=== PATIENT | male | born 1950 | race Caucasian/White ===

== ENCOUNTER 2022-04-20 15:15 | Outpatient (RCR) | payer MEDICARE, BC, SELFPAY | END 2022-04-20 16:39 | disposition home or self-care (01) | PROVIDERS: PCP Family Medicine; Visit Provider Family Medicine | DX: R26.9 Unspecified abnormalities of gait and mobility (principal); Z51.89 Encounter for other specified aftercare | CPT/HCPCS: 97110; 97112; 97530; 97535 ==

== ENCOUNTER 2023-03-25 11:25 | Emergency (ER) | payer MEDICARE, BC, SELFPAY ==
[2023-03-25 11:39] VITALS: BP 142/74; PULSE 76; RESP 20; TEMP 36.3; O2SAT 98
--- NOTE | 2023-03-25 11:58 | ED.EPISTAXIS ---
History of Present Illness General Time Seen by Provider: 11:58 Date Seen: 03/25/23 Chief Complaint: Epistaxis/Nosebleed Stated Complaint: nose bleed Time Seen by Provider: 03/25/23 11:58 Source: patient, family and RN notes reviewed Mode of arrival: ambulatory Limitations: no limitations History of Present Illness HPI Narrative: Jesus is a very pleasant 73-year-old male accompanied by his latrice here with uncontrolled epistasis. It is coming he thinks from his left side but has been bleeding from the right at times as well. It is been bleeding since 10:00 a.m. this morning, he has not gotten it is to stop. He is on Eliquis, was started recently for a clot found in his heart. He is currently wearing a monitor to see if he has recurrent arrhythmia. 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 He has been off anticoagulation for about 2 years prior to this point. He is scheduled to have a repeat echo I believe they said tomorrow. No trauma. No fever. Location: Yes left naris Related Data Previous Rx's Medication Instructions Recorded cephalexin 500 mg tablet 500 mg PO BID #10 tabs 03/25/23 Allergies Allergy/AdvReac Type Severity Reaction Status Date / Time No Known Drug Allergies Allergy Verified 03/25/23 11:45 Review of Systems Narrative: As per HPI. Exam Const: Vital Signs, click to edit/add: Vital Signs - 24 hr 03/25/23 11:39 Temperature 97.4 F L Pulse Rate [Right Pulse Oximeter] 76 Respiratory Rate 20 Blood Pressure [Ri ght Upper Arm] 142/74 H Pulse Oximetry 98 Oxygen Delivery Me thod Room Air Patient has the nasal clip on. Has dried blood around both nares and around his mouth. When I removed the clip, has active bleeding. Cannot see a source. Otherwise face is atraumatic, sclera clear, conjugate gaze. Able to speak in complete sentences. Neck without any cervical adenopathy or masses. Documenting provider has reviewed patient's vital signs: yes Course Reevaluation(s) Time of Reevaluation #1: 12:06 Reevaluation #1: Oxymetazoline own cotton ball placed in left nares were it seems to be bleeding from, does seem to get some retrograde symptoms over to the right, did spray some oxymetazoline spray before placing the cotton ball. Will let this rest with the nasal clip on to see if we can achieve some initial hemostasis that I might be able to see where he is bleeding from. When the clamp was taken off, started just having profuse bleeding from the left nares. Time of Reevaluation #2: 12:43 Reevaluation #2: Just completed placing packing his nose. Used a 5.5 cm rapid rhino, insufflated with 2 mL of air and patient seems to have hemostasis at this point. Once I removed the cotton ball with the oxymetazoline, a clot followed and had active bleeding, could not see any source of bleeding as he just had profuse bleeding. Tried to use the large Rapid rhino but could not advance it. Was successful in getting the 5.5 cm rapid rhino in. We will observe, await his labs. May need to insufflate more air into this but at this time it seems that we have hemostasis. Time of Reevaluation #3: 13:09 Reevaluation #3: Patient has not had any further bleeding. Reviewed labs are stable without concerns. Consultations Consultation #1: Did speak with Dr. Martino briefly, he wants him to be seen Sunday in [place], can be added on to his schedule. Time: 13:15 Vital Signs Vital signs: Initial Vital Signs Temperature 97.4 F L 03/25/23 11:39 Temperature Source Temporal Artery Scan 03/25/23 11:39 Pulse Rate 76 03/25/23 11:39 Respiratory Rate 20 03/25/23 11:39 Blood Pressure 142/74 H 03/25/23 11:39 Blood Pressure Mean 96 03/25/23 11:39 Blood Pressure Position Sitting 03/25/23 11:39 Pulse Oximetry 98 03/25/23 11:39 Oxygen Delivery Method Room Air 03/25/23 11:39 Vital Signs Temperature 97.4 F L 03/25/23 11:39 Pulse Rate 76 03/25/23 11:39 Respiratory Rate 20 03/25/23 11:39 Blood Pressure 142/74 H 03/25/23 11:39 Pulse Oximetry 98 03/25/23 11:39 Oxygen Delivery Method Room Air 03/25/23 11:39 Temperature 97.4 F L 03/25/23 11:39 Pulse Rate 76 03/25/23 11:39 Respiratory Rate 20 03/25/23 11:39 Blood Pressure 142/74 H 03/25/23 11:39 Pulse Oximetry 98 03/25/23 11:39 Oxygen Delivery Method Room Air 03/25/23 11:39 MDM - Epistaxis Lab Data Attestation: I reviewed the patient's lab results. Labs: Lab Results 03/25/23 Range/Units 12:18 WBC 4.47 L (4.50-11.00) K/uL RBC 4.68 (4.30-5.90) m/uL Hgb 14.5 (13.5-17.5) gm/dL Hct 42.7 (37.0-53.0) % MCV 91 (80-100) fL MCH 31 (26-34) pg MCHC 34 (32-36) gm/dL RDW Coeff of Leonie 13.0 (11.5-15.5) % Plt Count 159 (140-440) K/uL Neut % (Auto) 58.4 (42.0-72.0) % Lymph % (Auto) 19.5 L (20-44) % [place] % (Auto) 8.9 (0.0-11.0) % Eos % (Auto) 11.9 H (0.0-7.0) % Baso % (Auto) 1.1 (0.0-3.0) % Neut # (Auto) 2.60 (1.7-7.0) K/uL Lymph # (Auto) 0.90 (0.90-2.90) K/uL [place] # (Auto) 0.40 (0.00-0.90) K/UL Eos # (Auto) 0.50 (0.00-0.50) K/uL Baso # (Auto) 0.00 (0.00-0.30) K/uL Abs Immat Gran (auto) 0.00 (0.00-0.30) K/uL Imm/Tot Granulo (auto) 0.2 % Sodium 142 (135-149) mmol/L Potassium 4.7 (3.6-5.1) mmol/L Chloride 105 (96-114) mmol/L Carbon Dioxide 31 (20-32) mmol/L Anion Gap 6 L (7-15) mEq/L BUN 14 (7-30) mg/dL Creatinine 0.9 (0.5-1.5) mg/dL Estimated GFR 91 ml/min Glucose 87 (60-115) mg/dL Calcium 9.5 (8.4-10.6) mg/dL Critical Care Time Critical Care Time Critical Care Time: No Discharge Plan Discharge Clinical Impression: Epistaxis Patient Disposition: Home, Self-Care Condition: Stable Instructions: Nosebleed (ED) Additional Instructions: Need to leave packing in place. If for any reason he does start bleeding again, there are 2 mL of air in the existing packing, an additional total of 3 mL can be added incrementally. Would recommend adding 1 mL every 10-15 minutes for a total volume of 3 mL. If he continues to bleed after the additional 3 mL has been added, does need to be re-evaluated. Will be on antibiotics, take as directed while the packing is in place. You will need to follow up with ENT, call [facility] where they do his scheduling, to get scheduled to be added on to his schedule Sunday morning here in [place] (tell the schedulers that I spoke with him personally on Sunday). No strenuous activity, do not try to blow nose. Activity Level: No strenuous activity Prescriptions: New cephalexin 500 mg tablet 500 mg PO BID Qty: 10 0RF Follow Up/Referrals: Saúl Robison MD [Primary Care Provider] - Stand Alone Forms: [facility] Info Instructions
[2023-03-25 12:28] LABS: Basophils Percent Auto 1.1 % (0.0-3.0); Eosinophils Percent Auto 11.9 % (0.0-7.0); Hematocrit 42.7 % (37.0-53.0); Hemoglobin* 14.5 gm/dL (13.5-17.5); Immature Granulocytes Pct Auto 0.2 %; Lymphocytes Percent Auto 19.5 % (20-44); Mean Corpuscular HGB Conc 34 gm/dL (32-36); Mean Corpuscular Hemoglobin 31 pg (26-34); Mean Corpuscular Volume 91 fL (80-100); Monocytes Percent Auto 8.9 % (0.0-11.0); Neutrophils Percent Auto 58.4 % (42.0-72.0); Platelet Count* 159 K/uL (140-440); Red Blood Count 4.68 m/uL (4.30-5.90); White Blood Count* 4.47 K/uL (4.50-11.00)
[2023-03-25 12:44] LABS: Slide Review Reflex No
[2023-03-25 12:46] LABS: Chloride* 105 mmol/L (96-114); Sodium* 142 mmol/L (135-149)
[2023-03-25 12:47] LABS: Potassium* 4.7 mmol/L (3.6-5.1)
[2023-03-25 12:49] LABS: Anion Gap 6 mEq/L (7-15); Carbon Dioxide* 31 mmol/L (20-32); Creatinine* 0.9 mg/dL (0.5-1.5); Estimated Glomerular Filt Rate 91 ml/min
[2023-03-25 12:50] LABS: Blood Urea Nitrogen* 14 mg/dL (7-30); Calcium* 9.5 mg/dL (8.4-10.6); Glucose* 87 mg/dL (60-115)
== END 2023-03-25 13:23 | disposition home or self-care (01) ==
PROVIDERS: Emergency Provider Family Medicine; PCP Family Medicine
DX: R04.0 Epistaxis (principal)
CPT/HCPCS: 30901; 36415; 80048; 85025; 99283

== ENCOUNTER 2023-06-13 09:14 | Outpatient (CLI) | payer MEDICARE, BC, SELFPAY | END 2023-06-13 09:15 | disposition home or self-care (01) | LOC: AMB 06-18 07:30 | PROVIDERS: PCP Family Medicine; Visit Provider Family Medicine | DX: S79.912A Unspecified injury of left hip, initial encounter (principal); W18.30XA Fall on same level, unspecified, initial encounter; Y92.000 Kitchen of unspecified non-institutional (private) residence as the place of occurrence of the external cause | CPT/HCPCS: A0425; A0427 ==

== ENCOUNTER 2023-06-13 09:50 | Inpatient (IN) | payer MEDICARE, BC, SELFPAY ==
[2023-06-13] VITALS (12 sets, daily range): BP systolic 114–155; BP diastolic 66–79; PULSE 80–85; RESP 16–18; TEMP 36.2–36.9; O2SAT 93–100; BMI 20.7; BMI 23.9
--- NOTE | 2023-06-13 | CRLHL7_ITS ---
For Patients: As a result of the Century Cures Act, medical imaging exams and procedure reports are released immediately into your electronic medical record. You may view this report before your referring provider. If you have questions, please contact your health care provider. INDICATION: AFIB, BROKEN HIP TECHNIQUE: Chest 1 views. COMPARISON: January 17, 2019 FINDINGS: Cardiovascular and mediastinum: Primary sternotomy. Stable moderate cardiomegaly. Interval placement of left subclavian dual lead pacemaker. Ectatic thoracic aorta. Lungs and pleural spaces: No focal consolidation. Slight interstitial prominence which may relate to chronic lung markings or mild interstitial edema. No sign of pleural effusion. Lucency at the right lung base which is favored to represent pulmonary emphysematous changes or artifact due to technique. A basilar pneumothorax is felt less likely. Bones and soft tissues: No significant findings. IMPRESSION: 1. Cardiomegaly. Slight interstitial prominence which may relate to chronic lung markings or mild interstitial edema. 2. Lucency at the right lung base which is favored to represent pulmonary emphysematous changes or artifact due to technique. A basilar pneumothorax is felt less likely. Dictated by Noel Jacques MD @ 06/13/2023 12:02:21 PM (Electronically Signed)
--- NOTE | 2023-06-13 09:55 | CRLHL7_ITS ---
For Patients: As a result of the Century Cures Act, medical imaging exams and procedure reports are released immediately into your electronic medical record. You may view this report before your referring provider. If you have questions, please contact your health care provider. INDICATION: Fall TECHNIQUE: Single view pelvis with AP and frogleg views of the left hip. COMPARISONS: None available. FINDINGS: Femoral heads are well-seated in the acetabula. There is a comminuted intertrochanteric fracture of the left hip. Degenerative changes of the bilateral hips are appreciated. There is soft tissue swelling. IMPRESSION: Comminuted fracture of the intertrochanteric left hip. Dictated by Jean Marie Ayala MD @ 06/13/2023 12:01:57 PM (Electronically Signed)
--- NOTE | 2023-06-13 10:08 | ED_ITS ---
HPI - General Adult General Chief complaint: Hip Injury/Pain Stated complaint: fall Time Seen by Provider: 06/13/23 09:54 History of Present Illness HPI narrative: 73 year white male brought in by ambulance with a fall. He apparently just simply lost balance, landed on a chair on his left upper thigh and hip. Subsequently had pain in his hip and was unable to stand or move, a ambulance was called. He is brought into the ER, he had loss no consciousness, he has no headache neck pain or back pain. He describes pain in his anterior and upper thigh and anterior hip. He has had his hip slightly laterally rotated and his leg is a little bit shortened he has no other complaint of injury. He does report that he is on Eliquis for chronic atrial fibrillation. Related Data Allergies Allergy/AdvReac Type Severity Reaction Status Date / Time No Known Drug Allergies Allergy Verified 03/27/23 14:31 Review of Systems Status of ROS: Reports: 6 or more systems reviewed and unremarkable except as noted in History and below PFSH [facility] Social History Smoking Status: Never smoker How often do you have a drink containing alcohol: never How often do you have six or more drinks on one occasion: Never AUDIT-C Alcohol total score: 0 Non-prescribed substance use: denies use Exam Narrative: Exam Narrative: Objective: Vital signs show elevated blood pressure, no fever, O2 sat 100% on room air Alert orient x3 HEENT is unremarkable neck is supple Chest is clear Heart rhythm regular no murmur Abdomen b9 soft nontender Pelvis is stable but with compression he does have some tenderness in his left hip, he also has tenderness in his anterior left hip and he has his leg externally rotated and with motion of his hip he has a good amount of discomfort. Distal CMS in left lower extremity is normal he is able to move his foot has a good pulse. Const: Vital Signs, click to edit/add: Vital Signs - 24 hr 06/13/23 09:55 06/13/23 10:08 06/13/23 11:30 Temperature 97.1 F L Pulse Rate [Right Pulse Oximeter] 85 Respiratory Rate 18 Blood Pressure [Ri ght Upper Arm] 155/79 H 155/79 H Pulse Oximetry 99 100 Oxygen Delivery Me thod Room Air 06/13/23 11:50 06/13/23 12:15 Temperature Pulse Rate [Right Pulse Oximeter] 80 80 Respiratory Rate 16 Blood Pressure [Ri ght Upper Arm] 149/77 H Pulse Oximetry 98 95 Oxygen Delivery Me thod Room Air Room Air Course Vital Signs Vital signs: Initial Vital Signs Pulse Oximetry 99 06/13/23 09:55 Vital Signs Pulse Oximetry 99 06/13/23 09:55 Temperature 97.1 F L 06/13/23 10:08 Pulse Rate 80 06/13/23 12:15 Respiratory Rate 16 06/13/23 11:50 Blood Pressure 149/77 H 06/13/23 12:15 Pulse Oximetry 95 06/13/23 12:15 Oxygen Delivery Method Room Air 06/13/23 12:15 Medications Administered Medications: Generic Name Dose Route Start Last Admin Trade Name Freq PRN Reason Stop Dose Admin Sodium Chloride 500 mls @ 500 mls/hr 06/13/23 11:33 06/13/23 11:39 0.9 % Sodium Chloride 500 Ml IV 06/13/23 12:32 Not Given .Q1H ONE Discontinued Medications Generic Name Dose Route Start Last Admin Trade Name Freq PRN Reason Stop Dose Admin Sodium Chloride 500 mls @ 500 mls/hr 06/13/23 09:54 06/13/23 11:49 0.9 % Sodium Chloride 500 Ml IV 06/13/23 10:53 Infused .Q1H ONE Infusion Morphine Sulfate 2 mg 06/13/23 09:54 06/13/23 10:25 Morphine 4 Mg/Ml Inj IVP 06/13/23 09:55 2 mg ONCE ONE Administration Morphine Sulfate 4 mg 06/13/23 10:38 06/13/23 10:46 Morphine 4 Mg/Ml Inj IVP 06/13/23 10:39 4 mg ONCE ONE Administration Medical Decision Making [facility] Narrative Medical decision making narrative: [age] white male with a fall with left hip pain. At this point he is on blood thinners, I would recommend we check a x-ray of his pelvis. Disposition pending findings. He is clearly not able to bear weight at this time. Likely will need admission whether fracture noted or not. Disposition pending findings above please see addendum dictation. Addendum 11:25 a.m.: The patient has an intertrochanteric hip fracture on the left. After discussion of this with the family both can and his wish transfer to [facility]. 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 He is on Eliquis. 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 Given the multitude of medical issues the request is reasonable and will attempt to make transfer to [facility]. I made aware to the family that there is very Limited bed availability. addendum 11:34 a.m. there are no beds available at [facility] or [facility]. There may be beds at [facility] but the family declined that. They wish to stay here. Will contact Orthopedics and hospitalist. Addendum Ramirez 40 7:00 a.m.: Dr. Luna and has accepted the patient on a past of Orthopedics, the hospitalist will accept as well. Anesthesia will consult. Lab Data Labs: Lab Results 06/13/23 Range/Units 10:15 WBC 6.08 (4.50-11.00) K/uL RBC 4.68 (4.30-5.90) m/uL Hgb 13.1 L (13.5-17.5) gm/dL Hct 41.7 (37.0-53.0) % MCV 89 (80-100) fL MCH 28 (26-34) pg MCHC 31 L (32-36) gm/dL RDW Coeff of Leonie 12.4 (11.5-15.5) % Plt Count 182 (140-440) K/uL Neut % (Auto) 67.3 (42.0-72.0) % Lymph % (Auto) 17.4 L (20-44) % [place] % (Auto) 8.4 (0.0-11.0) % Eos % (Auto) 5.9 (0.0-7.0) % Baso % (Auto) 0.8 (0.0-3.0) % Neut # (Auto) 4.09 (1.7-7.0) K/uL Lymph # (Auto) 1.10 (0.90-2.90) K/uL [place] # (Auto) 0.50 (0.00-0.90) K/UL Eos # (Auto) 0.36 (0.00-0.50) K/uL Baso # (Auto) 0.05 (0.00-0.30) K/uL Abs Immat Gran (auto) 0.01 (0.00-0.30) K/uL Imm/Tot Granulo (auto) 0.2 % INR 1.28 H (0.91-1.10) APTT 34 H (23-33) Seconds Sodium 140 (135-149) mmol/L Potassium 4.1 (3.6-5.1) mmol/L Chloride 107 (96-114) mmol/L Carbon Dioxide 26 (20-32) mmol/L Anion Gap 7 (7-15) mEq/L BUN 18 (7-30) mg/dL Creatinine 0.7 (0.5-1.5) mg/dL Estimated Creat Clear 73.90 Estimated GFR 99 ml/min Glucose 110 (60-115) mg/dL Calcium 9.0 (8.4-10.6) mg/dL Total Bilirubin 1.3 (0.1-1.5) mg/dL Direct Bilirubin 0.2 (0.0-0.5) mg/dL AST 25 (12-35) U/L ALT 21 (4-50) U/L Alkaline Phosphatase 97 (40-150) U/L NT-Pro-B Natriuret Pep 1670 pg/mL Total Protein 8.3 (6.0-8.3) g/dL Albumin 4.3 (3.3-5.0) g/dL Discharge Plan Discharge Clinical Impression: Injury of hip, left, Closed fracture of left hip Patient Disposition: Admitted As Inpatient Condition: Stable
[2023-06-13] MEDS: MORPHINE 4 MG/ML INJ 2 MG IVP (10:25)
[2023-06-13 10:31] LABS: Basophils Absolute Auto 0.05 K/uL (0.00-0.30); Basophils Percent Auto 0.8 % (0.0-3.0); Eosinophils Absolute Auto 0.36 K/uL (0.00-0.50); Eosinophils Percent Auto 5.9 % (0.0-7.0); Hematocrit 41.7 % (37.0-53.0); Hemoglobin* 13.1 gm/dL (13.5-17.5); Immature Granulocytes Abs Auto 0.01 K/uL (0.00-0.30); Immature Granulocytes Pct Auto 0.2 %; Lymphocytes Percent Auto 17.4 % (20-44); Mean Corpuscular HGB Conc 31 gm/dL (32-36); Mean Corpuscular Hemoglobin 28 pg (26-34); Mean Corpuscular Volume 89 fL (80-100); Monocytes Percent Auto 8.4 % (0.0-11.0); Neutrophils Absolute Auto 4.09 K/uL (1.7-7.0); Neutrophils Percent Auto 67.3 % (42.0-72.0); Platelet Count* 182 K/uL (140-440); RDW Coefficient of Variation % 12.4 % (11.5-15.5); Red Blood Count 4.68 m/uL (4.30-5.90); White Blood Count* 6.08 K/uL (4.50-11.00)
[2023-06-13] MEDS: 0.9 % SODIUM CHLORIDE 500 ML 500 ML IV (10:46)
[2023-06-13] MEDS: MORPHINE 4 MG/ML INJ IVP ×2 (10:46→21:18)
[2023-06-13 10:54] LABS: Albumin* 4.3 g/dL (3.3-5.0); Chloride* 107 mmol/L (96-114)
[2023-06-13 10:55] LABS: Potassium* 4.1 mmol/L (3.6-5.1); Sodium* 140 mmol/L (135-149)
[2023-06-13 10:57] LABS: Anion Gap 7 mEq/L (7-15); Aspartate Amino Transferase* 25 U/L (12-35); Bilirubin Direct* 0.2 mg/dL (0.0-0.5); Bilirubin Total* 1.3 mg/dL (0.1-1.5); Carbon Dioxide* 26 mmol/L (20-32); Creatinine* 0.7 mg/dL (0.5-1.5); Estimated Glomerular Filt Rate 99 ml/min; Total Protein* 8.3 g/dL (6.0-8.3)
[2023-06-13 10:58] LABS: Alanine Aminotransferase* 21 U/L (4-50); Alkaline Phosphatase* 97 U/L (40-150); Blood Urea Nitrogen* 18 mg/dL (7-30); Glucose* 110 mg/dL (60-115)
[2023-06-13 11:00] LABS: INR 1.28 (0.91-1.10); Partial Thromboplastin Time* 34 Seconds (23-33); Prothrombin Time 16.9 Seconds; Slide Review Reflex No
[2023-06-13 11:25] LABS: NT Pro B Type NatriureticPept* 1670 pg/mL
--- NOTE | 2023-06-13 14:27 | PM.IMHP1 ---
Hospitalist- H&P: HPI History of Present Illness Date Seen: 06/13/23 Chief complaint: fall Narrative: Masood May is a 73 year old male with significant past medical history including HCM status post septal myectomy 2013, type a aortic dissection status post repair 2013, paroxysmal atrial fibrillation status post permanent pacemaker and ablation April 2023, status post multiple embolic stroke 2013, and SVT 2020, cerebellar hemorrhage 2020, LBBB, COPD, hyperlipidemia on statin, hypertension no longer on medications is admitted to the medical floor from the ED for surgical repair left intertrochanteric fracture. Patient reports he had just taken fruit out of the microwave and was walking back to the table a short distance when he fell, suspected to have wrapped his leg around the chair. He fell onto his buttocks and lower back. His was not at home at that time but found him very shortly after the fall. Their son was at the home and able to assist in getting him to a chair. He denies presyncopal or syncopal episode related to the fall. Denies headache or dizziness prior. Denies chest pain or shortness of breath prior. No recent fevers. No recent nausea, vomiting, diarrhea. Last BM was 2 days ago which was normal for him. No change in urination. Patient is a nonsmoker. Rare alcohol use. Lives with his in their own home. In the ED, plain film shows comminuted left intertrochanteric fracture. CXR reviewed. Afebrile. No leukocytosis. INR 1.28. ECG shows ventricular paced rhythm with occasional and consecutive premature ventricular complexes, rate 83, QTC 542. Last dose apixaban was evening of 06/12/23. Denies personal history of anesthesia complications. No known bleeding disorders. Review of Systems Narrative: REVIEW OF SYSTEMS: Complete review of systems performed and negative unless otherwise stated in HPI or below. [facility] [place] Medical History Embolic stroke ?I63.9 - Cerebral infarction, unspecified (ICD-10) NSVT (nonsustained ventricular tachycardia) ?I47.29 - Other ventricular tachycardia (ICD-10) Cerebellar hemorrhage ?I61.4 - Nontraumatic intracerebral hemorrhage in cerebellum (ICD-10) Thrombus of left atrial appendage ?I51.3 - Intracardiac thrombosis, not elsewhere classified (ICD-10) Left bundle branch block ?I44.7 - Left bundle-branch block, unspecified (ICD-10) COPD mixed type ?J44.9 - Chronic obstructive pulmonary disease, unspecified (ICD-10) Hyperlipidemia ?E78.5 - Hyperlipidemia, unspecified (ICD-10) Stroke ?I63.9 - Cerebral infarction, unspecified (ICD-10) Cardiomyopathy ?I42.9 - Cardiomyopathy, unspecified (ICD-10) AA (aortic aneurysm) ?I71.9 - Aortic aneurysm of unspecified site, without rupture (ICD-10) Pacemaker ?Z95.0 - Presence of cardiac pacemaker (ICD-10) Atrial fibrillation ?I48.91 - Unspecified atrial fibrillation (ICD-10) Hypertension ?I10 - Essential (primary) hypertension (ICD-10) Surgical History Hx of repair of dissecting thoracic aortic aneurysm, [place] type A ?Z98.890 - Other specified postprocedural states (ICD-10) ?Z86.79 - Personal history of other diseases of the circulatory system (ICD-10) Social History What is your current living situation?: I presently have a place to live Problems where you live: no known problems Problems where you live details: N/A In the past 12 months, utilities in danger of being shut off: no In past 12 months, lack of transportation kept you from medical appts, meetings, work, or getting things needed for daily living: no In the past 12 mos, have been you worried that your food would run out before you had money to buy more?: never true In the past 12 mos, the food you bought just didn't last and you didn't have money to buy more?: never true Smoking Status: Never smoker How often do you have a drink containing alcohol: never How often do you have six or more drinks on one occasion: Never AUDIT-C Alcohol total score: 0 Non-prescribed substance use: denies use How often does anyone, including family, friends and others, physically hurt you: never How often does anyone, including family, friends and others, insult or talk down to you: never How often does anyone, including family, friends and others, threaten you with harm: never How often does anyone, including family, friends and others, scream or curse at you: never Meds Home Medications and Allergies Home Medications Medication Instructions Recorded Confirmed Type acetaminophen 325 mg tablet 650 mg PO Q6H PRN 06/13/23 06/13/23 History amoxicillin 500 mg capsule 1,000 mg PO BID 06/13/23 06/13/23 History apixaban 5 mg tablet (Eliquis) 5 mg PO BID 06/13/23 06/13/23 History atorvastatin 40 mg tablet 40 mg PO DAILY 06/13/23 06/13/23 History fluticasone furoate 100 1 ea inhalation DAILY 06/13/23 06/13/23 History mcg-vilanterol 25 mcg/dose inhalation powder (Breo Ellipta) Allergies Allergy/AdvReac Type Severity Reaction Status Date / Time No Known Drug Allergies Allergy Verified 03/27/23 14:31 Exam Narrative: Exam Narrative: PHYSICAL EXAM General: Pleasant, conversant, NAD HEENT: Normocephalic, atraumatic, sclera white, EOMI, oral mucosa moist Cardiovascular: RRR, S1S2. No pitting edema Pulmonary: CTA bilaterally without rhonchi, rales, expiratory wheezes. No dyspnea Abdominal: Soft, nondistended, NTTP, no guarding Neurological: Alert, answering questions appropriately, cranial nerves intact, no focal findings Extremities: Left lower extremity externally rotated with flexion at knee for comfort. Distal pulses, strong, intact. Neurovascularly intact Skin: Warm, dry. Dry excoriations lower extremities Const: Vital Signs, click to edit/add: Vital Signs - 24 hr 06/13/23 09:55 06/13/23 10:08 06/13/23 11:30 Temperature 97.1 F L Pulse Rate [Right Pulse Oximeter] 85 Pulse Rate [Right Radial] Respiratory Rate 18 Blood Pressure [Le ft Arm] Blood Pressure [Ri ght Upper Arm] 155/79 H 155/79 H Pulse Oximetry 99 100 Oxygen Delivery Me thod Room Air 06/13/23 11:50 06/13/23 12:15 06/13/23 13:00 Temperature Pulse Rate [Right Pulse Oximeter] 80 80 Pulse Rate [Right Radial] Respiratory Rate 16 Blood Pressure [Le ft Arm] Blood Pressure [Ri ght Upper Arm] 149/77 H 135/74 Pulse Oximetry 98 95 Oxygen Delivery Me thod Room Air Room Air 06/13/23 13:35 Temperature 97.9 F Pulse Rate [Right Pulse Oximeter] Pulse Rate [Right Radial] 81 Respiratory Rate 16 Blood Pressure [Le ft Arm] 132/66 Blood Pressure [Ri ght Upper Arm] Pulse Oximetry 95 Oxygen Delivery Me thod Room Air Hospitalist - H&P: Result Labs Labs: Short CBC 06/13/23 Range/Units 10:15 WBC 6.08 (4.50-11.00) K/uL Hgb 13.1 L (13.5-17.5) gm/dL Hct 41.7 (37.0-53.0) % Plt Count 182 (140-440) K/uL BMP 06/13/23 10:15 Sodium 140 Potassium 4.1 Chloride 107 Carbon Dioxide 26 BUN 18 Creatinine 0.7 Glucose 110 Calcium 9.0 Liver Function 06/13/23 Range/Units 10:15 Total Bilirubin 1.3 (0.1-1.5) mg/dL Direct Bilirubin 0.2 (0.0-0.5) mg/dL AST 25 (12-35) U/L ALT 21 (4-50) U/L Alkaline Phosphatase 97 (40-150) U/L Albumin 4.3 (3.3-5.0) g/dL ECG Attestation: I personally reviewed and interpreted this ECG as follows: Interpretation: Ventricular paced rhythm with occasional and consecutive premature ventricular complexes, rate 83, QTC 542 Pacemaker model: PPM implant 04/2023 Imaging Chest x-ray: Attestation: I have reviewed the pertinent imaging results. Radiologist's impression: Chest 1 views. COMPARISON: January 17, 2019 FINDINGS: Cardiovascular and mediastinum: Primary sternotomy. Stable moderate cardiomegaly. Interval placement of left subclavian dual lead pacemaker. Ectatic thoracic aorta. Lungs and pleural spaces: No focal consolidation. Slight interstitial prominence which may relate to chronic lung markings or mild interstitial edema. No sign of pleural effusion. Lucency at the right lung base which is favored to represent pulmonary emphysematous changes or artifact due to technique. A basilar pneumothorax is felt less likely. Bones and soft tissues: No significant findings. IMPRESSION: 1. Cardiomegaly. Slight interstitial prominence which may relate to chronic lung markings or mild interstitial edema. 2. Lucency at the right lung base which is favored to represent pulmonary emphysematous changes or artifact due to technique. A basilar pneumothorax is felt less likely. Hip x-ray: Attestation: I have reviewed the pertinent imaging results. Radiologist's impression: Single view pelvis with AP and frogleg views of the left hip. COMPARISONS: None available. FINDINGS: Femoral heads are well-seated in the acetabula. There is a comminuted intertrochanteric fracture of the left hip. Degenerative changes of the bilateral hips are appreciated. There is soft tissue swelling. IMPRESSION: Comminuted fracture of the intertrochanteric left hip. Assessment and Plan Assessment and plan (1) Closed fracture of left hip: Problem comment: -fall from standing 06/13 -plain film shows comminuted fracture of the intertrochanteric left hip -bedrest, urinal, positional changes -scheduled Tylenol, morphine as needed for pain, thus far tolerated well, ice/heat as needed -plan for OR tomorrow 06/14, NPO after midnight, Eliquis has been held (last dose 06/12), repeat CBC, BMP, coags in a.m. Status: Acute (2) Hyperlipidemia: Problem comment: -continue statin Status: Chronic (3) COPD mixed type: Problem comment: -CXR shows slight interstitial prominence which may relate to chronic lung markings are mild interstitial edema. Lucency at the right lung base which is favored to represent pulmonary emphysematous changes or artifact due to technique. -continue Breo perioperatively, incetive spirometry, pulmonary hygiene Status: Chronic (4) Atrial fibrillation: Problem comment: -s/p permanent pacemaker and atrioventricular alexi ablation 04/2023 (Reviewed Dr. Bee's note 04/23/23) -h/o MAZE and left atrial appendage ligation 2013 (at the time of his septal myectomy and aortic dissection repair) -on apixaban (last dose 06/12). Hold pending surgical procedure left hip 06/14 Status: Acute (5) Pacemaker: Problem comment: -and atrioventricular alexi ablation April 2023 (Dr. Bee, [facility]) Status: Acute (6) Cardiomyopathy: Problem comment: -hypertrophic obstructive -s/p septal myectomy 2013 Status: Acute (7) Hx of repair of dissecting thoracic aortic aneurysm, [place] type A: Problem comment: -2013 Status: Acute (8) Embolic stroke: Problem comment: -multiple during 2013 hospitalization Status: Acute (9) Cerebellar hemorrhage: Problem comment: -spontaneous large right cerebellar ICH with mass effect 2020 while on apixaban -s/p craniotomy with hematoma evacuation and ventriculostomy (removed) Status: Acute Plan CODE: Full as discussed with patient and on admission VTE PPX: SCDs, no chemoprophylaxis pending surgical intervention 06/14 Disposition: Inpatient
[2023-06-13] MEDS: 0.9 % SODIUM CHLORIDE 1000 ml 1,000 ML 75 ML IV (14:40)
[2023-06-13] MEDS: ACETAMINOPHEN 500 MG TABLET 1000 MG PO ×2 (16:55→22:37)
[2023-06-13] MEDS: ATORVASTATIN CALCIUM 40 MG TABLET PO (21:18)
[2023-06-13] MEDS: Fluticasone Furoate-Vilanterol [Breo Ellipta] 1 EACH IH (22:12)
--- NOTE | 2023-06-13 22:18 | PC.NURSE ---
End of Shift: Patient pleasant and cooperative. Afebrile. Rating pain in left hip 4-5/10 and PRN Morphine given x1, CMS intact. Tolerating regular diet with no nausea. Turn and reposition in bed.
[2023-06-14] VITALS (24 sets, daily range): BP systolic 116–153; BP diastolic 66–85; PULSE 79–82; RESP 12–18; TEMP 36.2–37.2; O2SAT 91–98
[2023-06-14] MEDS: 0.9 % SODIUM CHLORIDE 1000 ml 1,000 ML 75 ML IV ×2 (02:55→18:52)
[2023-06-14] MEDS: ACETAMINOPHEN 500 MG TABLET 1000 MG PO ×2 (02:56→09:07)
[2023-06-14] MEDS: MORPHINE 4 MG/ML INJ IVP (02:57)
--- NOTE | 2023-06-14 05:17 | PC.NURSE ---
End of shift [id number]: Pt A&O and afebrile overnight. TELE showed A. Fib V paced with BBB. Pt had a few episodes of A. Fib RVR into the 130s with occasional PVC?s where pacer didn?t sense the beats but would flip back into paced rhythm. Pt has been NPO since 0000 for scheduled left hip replacement today at 1200 TBD. Bedrest and repositioning as tolerated. NS has been infusing at 75 mL/hr in PIV in right FA. Pt utilized urinal overnight, total U/O: 175cc. Received scheduled Tylenol per AUG. PRN IV morphine given x1 dose for pain 02/08 awakened from sleep. Pt cooperative with cares and pleasant throughout the night. ?
[2023-06-14 06:31] LABS: Hematocrit 35.1 % (37.0-53.0); Hemoglobin* 11.1 gm/dL (13.5-17.5); Mean Corpuscular HGB Conc 32 gm/dL (32-36); Mean Corpuscular Hemoglobin 28 pg (26-34); Mean Corpuscular Volume 89 fL (80-100); Platelet Count* 141 K/uL (140-440); Red Blood Count 3.96 m/uL (4.30-5.90); White Blood Count* 6.24 K/uL (4.50-11.00)
[2023-06-14 06:42] LABS: Slide Review Reflex No
[2023-06-14 06:50] LABS: Chloride* 110 mmol/L (96-114); Potassium* 4.1 mmol/L (3.6-5.1); Sodium* 137 mmol/L (135-149)
[2023-06-14 06:52] LABS: Creatinine* 0.6 mg/dL (0.5-1.5); Est. Creatinine Clearance* 83.18; Estimated Glomerular Filt Rate 103 ml/min
[2023-06-14 06:53] LABS: Anion Gap 3 mEq/L (7-15); Blood Urea Nitrogen* 17 mg/dL (7-30); Calcium* 8.3 mg/dL (8.4-10.6); Carbon Dioxide* 24 mmol/L (20-32); Glucose* 92 mg/dL (60-115)
[2023-06-14 07:13] LABS: INR 1.41 (0.91-1.10); Prothrombin Time 18.2 Seconds
--- NOTE | 2023-06-14 08:09 | REH.PT ---
Pt scheduled for sx this afternoon 06/14. PT to eval tomorrow.
--- NOTE | 2023-06-14 12:07 | PM.ORCN ---
History of Present Illness HPI Time Seen by Provider: 11:50 Date Seen: 06/14/23 Consult date: 06/14/23 Consult reason: fracture Chief complaint: fall Narrative: Masood is a pleasant 73 year old male with past medical history significant for type a aortic dissection status post repair 2013, paroxysmal atrial fibrillation status post permanent pacemaker and ablation April 2023, status post multiple embolic stroke 2013, and SVT 2020, cerebellar hemorrhage 2020, LBBB, COPD, hyperlipidemia on statin, hypertension no longer on medications. He presented to the emergency department yesterday after sustaining a ground level fall in his home and landing on his left hip. Following the injury he was unable to bear weight. X-rays obtained in the Emergency Department revealed a displaced intertrochanteric left hip fracture. He was subsequently admitted to the hospitalist service for planned surgical stabilization of his hip fracture. Prior to the injury, he live at home with his . He frequently used a cane or walker for assistance with ambulation. This morning, he states that he is doing well. He states the left hip pain is adequately controlled. Of note, he is on Eliquis for his atrial fibrillation. His last dose of Eliquis was on the evening of June 12. [facility] Medical History Embolic stroke ?I63.9 - Cerebral infarction, unspecified (ICD-10) NSVT (nonsustained ventricular tachycardia) ?I47.29 - Other ventricular tachycardia (ICD-10) Cerebellar hemorrhage ?I61.4 - Nontraumatic intracerebral hemorrhage in cerebellum (ICD-10) Thrombus of left atrial appendage ?I51.3 - Intracardiac thrombosis, not elsewhere classified (ICD-10) Left bundle branch block ?I44.7 - Left bundle-branch block, unspecified (ICD-10) COPD mixed type ?J44.9 - Chronic obstructive pulmonary disease, unspecified (ICD-10) Hyperlipidemia ?E78.5 - Hyperlipidemia, unspecified (ICD-10) Stroke ?I63.9 - Cerebral infarction, unspecified (ICD-10) Cardiomyopathy ?I42.9 - Cardiomyopathy, unspecified (ICD-10) AA (aortic aneurysm) ?I71.9 - Aortic aneurysm of unspecified site, without rupture (ICD-10) Pacemaker ?Z95.0 - Presence of cardiac pacemaker (ICD-10) Atrial fibrillation ?I48.91 - Unspecified atrial fibrillation (ICD-10) Hypertension ?I10 - Essential (primary) hypertension (ICD-10) Surgical History Hx of repair of dissecting thoracic aortic aneurysm, [place] type A ?Z98.890 - Other specified postprocedural states (ICD-10) ?Z86.79 - Personal history of other diseases of the circulatory system (ICD-10) Social History What is your current living situation?: I presently have a place to live Problems where you live: no known problems Problems where you live details: N/A In the past 12 months, utilities in danger of being shut off: no In past 12 months, lack of transportation kept you from medical appts, meetings, work, or getting things needed for daily living: no In the past 12 mos, have been you worried that your food would run out before you had money to buy more?: never true In the past 12 mos, the food you bought just didn't last and you didn't have money to buy more?: never true Smoking Status: Never smoker How often do you have a drink containing alcohol: never How often do you have six or more drinks on one occasion: Never AUDIT-C Alcohol total score: 0 Non-prescribed substance use: denies use How often does anyone, including family, friends and others, physically hurt you: never How often does anyone, including family, friends and others, insult or talk down to you: never How often does anyone, including family, friends and others, threaten you with harm: never How often does anyone, including family, friends and others, scream or curse at you: never Meds Home Medications and Allergies Home Medications Medication Instructions Recorded Confirmed Type acetaminophen 325 mg tablet 650 mg PO Q6H PRN 06/13/23 06/13/23 History amoxicillin 500 mg capsule 1,000 mg PO BID 06/13/23 06/13/23 History apixaban 5 mg tablet (Eliquis) 5 mg PO BID 06/13/23 06/13/23 History atorvastatin 40 mg tablet 40 mg PO DAILY 06/13/23 06/13/23 History fluticasone furoate 100 1 ea inhalation DAILY 06/13/23 06/13/23 History mcg-vilanterol 25 mcg/dose inhalation powder (Breo Ellipta) Allergies Allergy/AdvReac Type Severity Reaction Status Date / Time No Known Drug Allergies Allergy Verified 03/27/23 14:31 Ortho Exam Narrative Exam Narrative: General: Alert and oriented. Musculoskeletal: Left lower extremity was examined. Skin intact. Sensation intact dorsal and plantar foot. EHL, tibialis anterior, gastrocnemius/soleus inact. Intact DP & PT pulses. Const Vital Signs, click to edit/add: Vital Signs - 24 hr 06/13/23 12:15 06/13/23 13:00 06/13/23 13:35 Temperature 97.9 F Pulse Rate Pulse Rate [Pulse Oximeter] Pulse Rate [Right Pulse Oximeter] 80 Pulse Rate [Right Radial] 81 Respiratory Rate 16 Blood Pressure [Left Arm] 132/66 Blood Pressure [Right Upper Arm] 149/77 H 135/74 Pulse Oximetry 95 95 Oxygen Delivery Method Room Air Room Air 06/13/23 14:46 06/13/23 14:53 06/13/23 15:00 Temperature 97.8 F Pulse Rate 80 Pulse Rate [Pulse Oximeter] Pulse Rate [Right Pulse Oximeter] Pulse Rate [Right Radial] 80 Respiratory Rate 18 Blood Pressure [Left Arm] 139/70 Blood Pressure [Right Upper Arm] Pulse Oximetry 93 96 Oxygen Delivery Method Room Air Room Air 06/13/23 15:00 06/13/23 19:00 06/13/23 23:00 Temperature 98.4 F Pulse Rate 80 Pulse Rate [Pulse Oximeter] Pulse Rate [Right Pulse Oximeter] Pulse Rate [Right Radial] 80 Respiratory Rate 16 Blood Pressure [Left Arm] 129/74 Blood Pressure [Right Upper Arm] Pulse Oximetry 96 96 Oxygen Delivery Method Room Air 06/13/23 23:00 06/13/23 23:00 06/13/23 23:00 Temperature Pulse Rate Pulse Rate [Pulse Oximeter] 80 Pulse Rate [Right Pulse Oximeter] Pulse Rate [Right Radial] Respiratory Rate 16 16 Blood Pressure [Left Arm] Blood Pressure [Right Upper Arm] Pulse Oximetry 95 95 Oxygen Delivery Method Room Air 06/13/23 23:00 06/14/23 03:00 06/14/23 07:02 Temperature 98.2 F 97.9 F Pulse Rate 80 Pulse Rate [Pulse Oximeter] 80 82 Pulse Rate [Right Pulse Oximeter] Pulse Rate [Right Radial] Respiratory Rate 16 16 Blood Pressure [Left Arm] 114/72 148/70 H Blood Pressure [Right Upper Arm] Pulse Oximetry 95 96 Oxygen Delivery Method Room Air Room Air 06/14/23 07:32 06/14/23 07:32 06/14/23 07:32 Temperature 97.9 F Pulse Rate Pulse Rate [Pulse Oximeter] 79 Pulse Rate [Right Pulse Oximeter] Pulse Rate [Right Radial] Respiratory Rate 16 16 Blood Pressure [Left Arm] 131/72 Blood Pressure [Right Upper Arm] Pulse Oximetry 96 96 96 Oxygen Delivery Method Room Air Room Air 06/14/23 11:00 Temperature 98.2 F Pulse Rate Pulse Rate [Pulse Oximeter] 80 Pulse Rate [Right Pulse Oximeter] Pulse Rate [Right Radial] Respiratory Rate 16 Blood Pressure [Left Arm] 144/77 H Blood Pressure [Right Upper Arm] Pulse Oximetry 94 Oxygen Delivery Method Room Air Results Labs Labs: Laboratory Results - last 48 hr 06/13/23 06/13/23 06/14/23 10:15 14:27 05:56 WBC 6.08 6.24 RBC 4.68 3.96 L Hgb 13.1 L 11.1 L Hct 41.7 35.1 L MCV 89 89 MCH 28 28 MCHC 31 L 32 RDW Coeff of Leonie 12.4 Plt Count 182 141 Neut % (Auto) 67.3 Lymph % (Auto) 17.4 L [place] % (Auto) 8.4 Eos % (Auto) 5.9 Baso % (Auto) 0.8 Neut # (Auto) 4.09 Lymph # (Auto) 1.10 [place] # (Auto) 0.50 Eos # (Auto) 0.36 Baso # (Auto) 0.05 Abs Immat Gran (auto) 0.01 Imm/Tot Granulo (auto) 0.2 INR 1.28 H 1.41 H APTT 34 H Sodium 140 137 Potassium 4.1 4.1 Chloride 107 110 Carbon Dioxide 26 24 Anion Gap 7 3 L BUN 18 17 Creatinine 0.7 0.6 Estimated Creat Clear 73.90 83.18 Estimated GFR 99 103 Glucose 110 92 Calcium 9.0 8.3 L Total Bilirubin 1.3 Direct Bilirubin 0.2 AST 25 ALT 21 Alkaline Phosphatase 97 NT-Pro-B Natriuret Pep 1670 Total Protein 8.3 Albumin 4.3 Blood Type O Positive Antibody Screen NEGATIVE Diagnostic results Hip x-ray: image reviewed (Displaced left intertrochanteric left hip fracture) Assessment and Plan Assessment and plan (1) Closed fracture of left hip: Problem comment: -fall from standing 06/13 -plain film shows comminuted fracture of the intertrochanteric left hip 1214: POD#0 s/p left femur intertrochanteric fracture fixation with intramedullary nail. Discussed with Dr. Townsend postop. No intraoperative complications. EBL 100 mL. Patient received 1 dose TXA prior to procedure. Patient has remained vitally stable postoperatively, currently in PACU. Status: Acute Assessment and Plan: Displaced left intertrochanteric left hip fracture. Recommendations made for surgical intervention consisting of left hip closed reduction and surgical stabilization with a cephalomedullary nail to allow for early mobilization and advancement of weight-bearing, decreased pain, and healing of the fracture. Risks of surgery to include but not limited to infection, neurovascular injury, malunion, nonunion, hardware complications, failure of fixation, heat attack stroke, , were discussed with patient and his . After discussion of risks, benefits, and alternatives of surgery, informed consent was obtained and the operative hip was marked. Total time spent: Total time spent is greater than 50% in coordination of care (as documented) at patient's floor/unit and/or counseling patient: (2) Hyperlipidemia: Problem comment: -continue statin Status: Chronic Total time spent: Total time spent is greater than 50% in coordination of care (as documented) at patient's floor/unit and/or counseling patient: (3) COPD mixed type: Problem comment: -CXR shows slight interstitial prominence which may relate to chronic lung markings are mild interstitial edema. Lucency at the right lung base which is favored to represent pulmonary emphysematous changes or artifact due to technique. -continue Breo, incentive spirometry, aerobika, pulmonary hygiene postoperatively Status: Chronic Total time spent: Total time spent is greater than 50% in coordination of care (as documented) at patient's floor/unit and/or counseling patient: (4) Atrial fibrillation: Problem comment: -s/p permanent pacemaker and atrioventricular alexi ablation 04/2023 (Reviewed Dr. Bee's note 04/23/23) -h/o MAZE and left atrial appendage ligation 2013 (at the time of his septal myectomy and aortic dissection repair) -on apixaban (last dose 06/12). Hold pending surgical procedure left hip 06/14 -will discuss date to resume anticoagulation with Orthopedic surgery Status: Acute Total time spent: Total time spent is greater than 50% in coordination of care (as documented) at patient's floor/unit and/or counseling patient: (5) Pacemaker: Problem comment: -and atrioventricular alexi ablation April 2023 (Dr. Bee, [facility]) Status: Acute Total time spent: Total time spent is greater than 50% in coordination of care (as documented) at patient's floor/unit and/or counseling patient: (6) Cardiomyopathy: Problem comment: -hypertrophic obstructive -s/p septal myectomy 2013 Status: Acute Total time spent: Total time spent is greater than 50% in coordination of care (as documented) at patient's floor/unit and/or counseling patient: (7) Hx of repair of dissecting thoracic aortic aneurysm, [place] type A: Problem comment: -2013 Status: Acute Total time spent: Total time spent is greater than 50% in coordination of care (as documented) at patient's floor/unit and/or counseling patient: (8) Embolic stroke: Problem comment: -multiple during 2013 hospitalization Status: Acute Total time spent: Total time spent is greater than 50% in coordination of care (as documented) at patient's floor/unit and/or counseling patient: (9) Cerebellar hemorrhage: Problem comment: -spontaneous large right cerebellar ICH with mass effect 2020 while on apixaban -s/p craniotomy with hematoma evacuation and ventriculostomy (removed) Status: Acute Total time spent: Total time spent is greater than 50% in coordination of care (as documented) at patient's floor/unit and/or counseling patient:
--- NOTE | 2023-06-14 12:19 | P.ORPRC_ITS ---
Procedure Note Date of procedure: 06/14/23 Procedure: PREOPERATIVE DIAGNOSIS: 1. Left femur intertrochanteric fracture, closed, displaced POSTOPERATIVE DIAGNOSES: 1. Left femur intertrochanteric fracture, closed, displaced PROCEDURE: 1. Left femur intertrochanteric fracture fixation with intramedullary nail 2. 61440 - Intraoperative fluoroscopy up to 1 hour SURGEON: Nas Townsend MD SUPERVISOR ENGINE ASSEMBLY: Katia Bronson P.A.-C. An engineer second assistant was critical for this case to aide in patient positioning, suture manipulation, arm positioning, instrument positioning, and closure. ANESTHESIA: General IMPLANTS: Synthes short TFNA nail (130 degree, 11 mm X 170 mm); 105 mm leg screw; Single 5.0 mm distal interlocking screw EBL: 100 ml COMPLICATIONS: None evident INDICATIONS: Masood is a 73-year-old male who sustained an unwitnessed ground level fall yesterday morning. He subsequently developed left hip pain and had difficulty bearing weight. After presenting to the [facility], he was diagnosed with displaced intertrochanteric femur fracture. Surgical stabilization of this fracture is recommended to allow for early mobilization and advancement of weight-bearing, decreased pain, and healing of the fracture. Prior to procedure, risks and benefits of the operative and non operative treatment were discussed with the patient and his . After discussion of risks, benefits, and alternatives of surgery, informed consent was obtained and the operative hip was marked. FINDINGS: Comminuted, displaced left intertrochanteric femur fracture PROCEDURE: After obtaining proper medical evaluation and determining the patient was medically optimized for surgery, he was brought to the operating room and placed supine on the operating table. Induction of general anesthesia was undertaken. 2 g IV Ancef and 1 gm TXA were administered preoperatively. The patient was then positioned on the [place] table, and all bony prominences were well padded. Fluoroscopic imaging was utilized to obtain AP and lateral views of the hip and to confirm reduction of the fracture. The operative extremity was then prepped and draped in usual sterile fashion using ChloraPrep. A surgical time-out was performed confirming patient identity surgical site and surgical procedure. An incision through skin and gluteal fascia proximal to the tip of the greater trochanter in line with the femur. The tip of the greater trochanter was palpated and the guide pin was then placed into the medial tip of the greater trochanter and advanced into the proximal femur. Correct position of the guide pin was confirmed on C-arm and both in AP and lateral planes. This was then overdrilled with the starting Reamer. The guide pin was then removed and a short TFNA nail was inserted into the proximal femur. Correct position of the nail was confirmed with fluoroscopic imaging. The triple trocar was then applied to the lateral femur after making a small incision the skin and ITB band. This was confirmed fluoroscopically to be in appropriate position. The guide pin was then placed and confirmed on AP and lateral views with the goal of center center position. A 105 mm lag screw was selected after measuring, it was then reamed, and screw placed. The proximal nail locking screw was tightened down, and backed off a half turn. A second small incision was made laterally over the distal aspect of the nail, through which the distal interlock screw was placed. Compression was placed across the fracture site and nail was statically locked. Final fluoroscopic images were obtained, which confirmed near anatomic reduction of the fracture and satisfactory placement of the nail and screws. . At this stage, the wounds were thoroughly irrigated normal saline, closure performed with 0 Vicryl for the deep gluteal fascia, and IT band. 2-0 Vicryl, 4-0 Stratafix, and Exofin glue were utilized for subcutaneous and subcuticular closure, respectively. The patient was awoken from anesthesia and transferred to the PACU in stable condition. POSTOPERATIVE PLAN: 1. Patient will be readmitted to the hospitalist service for perioperative medical management. 2. Mobilize with physical therapy and occupational therapy. - Weight bear as tolerated left lower extremity. 3. Pain control: - Acetaminophen and Oxycodone for pain as needed. - IV pain medications for breakthrough pain - Ice for pain and swelling 4. Postoperative prophylactic antibiotics x2 doses 5. DVT prophylaxis: - Restart Eliquis 5 mg bid - Kevan herr and Jacqueline 6. Follow-up with Katia Bronson P.A.-C. in [facility] in 1-2 weeks. Follow-up with Dr. Townsend in 6 weeks.
[2023-06-14] MEDS: LACTATED RINGERS 1000 ML 1,000 ML 100 ML IV (12:21)
[2023-06-14] MEDS: CEFAZOLIN 2 GM INJ IVP (12:45)
--- NOTE | 2023-06-14 13:15 | CRLHL7_ITS ---
For Patients: As a result of the Cures Act, medical imaging exams and procedure reports are released immediately into your electronic medical record. You may view this report before your referring provider. If you have questions, please contact your health care provider. Indication: ORIF Technique: Three fluoroscopic images of the left hip. Fluoroscopic time 74.6 seconds. IMPRESSION: Fluoroscopic guidance for open reduction internal fixation of proximal left femoral fracture. Dictated by Rajiv Elizalde MD @ 06/15/2023 9:22:02 AM (Electronically Signed)
--- NOTE | 2023-06-14 14:23 | W.ANESCHARGE ---
Anesthesia Charges Start Date/Time Anesthesia Start Date: 06/14/23 Anesthesia Start Time: 12:21 Stop Date/Time Anesthesia Stop Date: 06/14/23 Anesthesia Stop Time: 14:23
--- NOTE | 2023-06-14 14:24 | PM.IMPN1 ---
Progress Note: A&P Assessment and plan (1) Closed fracture of left hip: Problem details: -fall from standing 06/13 -plain film shows comminuted fracture of the intertrochanteric left hip 06/14: POD#0 s/p left femur intertrochanteric fracture fixation with intramedullary nail. Discussed with Dr. Townsend postop. No intraoperative complications. EBL 100 mL. Patient received 1 dose TXA prior to procedure. Patient has remained vitally stable postoperatively, currently in PACU. Status: Acute (2) Hyperlipidemia: Problem details: -continue statin Status: Chronic (3) COPD mixed type: Problem details: -CXR shows slight interstitial prominence which may relate to chronic lung markings are mild interstitial edema. Lucency at the right lung base which is favored to represent pulmonary emphysematous changes or artifact due to technique. -continue Breo, incentive spirometry, aerobika, pulmonary hygiene postoperatively Status: Chronic (4) Atrial fibrillation: Problem details: -s/p permanent pacemaker and atrioventricular alexi ablation 04/2023 (Reviewed Dr. Bee's note 04/23/23) -h/o MAZE and left atrial appendage ligation 2013 (at the time of his septal myectomy and aortic dissection repair) -on apixaban (last dose 06/12). Hold pending surgical procedure left hip 06/14 -will discuss date to resume anticoagulation with Orthopedic surgery Status: Acute (5) Pacemaker: Problem details: -and atrioventricular alexi ablation April 2023 (Dr. 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 This includes time spent for the visit reviewing the chart, time spent during the visit, time spent after the visit and documentation and planning in coordination of care. Subjective Date Seen: 06/14/23 Interval history: During morning rounds, patient reports feeling good. Pain has been well managed. He reports sleeping pretty well, awaking 1 time for pain medication. Has not been nauseous. Is currently NPO for surgical intervention this afternoon. Scratching his left hip as it is itching. Otherwise no complaints concerns Exam Narrative: Exam Narrative: PHYSICAL EXAM General: Pleasant, conversant, NAD Cardiovascular: RRR, S1S2. No pitting edema Pulmonary: CTA bilaterally without rhonchi, rales, expiratory wheezes. No dyspnea Abdominal: Soft, nondistended, NTTP, no guarding Neurological: Alert, answering questions appropriately, cranial nerves intact, no focal findings Extremities: Distal pulses, strong, intact. Neurovascularly intact Skin: Warm, dry. Left hip without erythema or rash, no open sores. Dry excoriations lower extremities Const: Vital Signs, click to edit/add: Vital Signs - 24 hr 06/13/23 14:46 06/13/23 14:53 06/13/23 15:00 Temperature 97.8 F Pulse Rate 80 Pulse Rate [Pulse Oximeter] Pulse Rate [Right Radial] 80 Respiratory Rate 18 Blood Pressure [Le ft Arm] 139/70 Pulse Oximetry 93 [facility] 06/13/23 15:00 06/13/23 19:00 06/13/23 23:00 Temperature 98.4 F Pulse Rate 80 Pulse Rate [Pulse Oximeter] Pulse Rate [Right Radial] 80 Respiratory Rate 16 Blood Pressure [Le ft Arm] 129/74 Pulse Oximetry 96 96 [facility] 06/13/23 23:00 06/13/23 23:00 06/13/23 23:00 Temperature Pulse Rate Pulse Rate [Pulse Oximeter] 80 Pulse Rate [Right Radial] Respiratory Rate 16 16 Blood Pressure [Le ft Arm] Pulse Oximetry 95 95 Oxygen Delivery Mi thod Room Air 06/13/23 23:00 06/14/23 03:00 06/14/23 07:02 Temperature 98.2 F 97.9 F Pulse Rate 80 Pulse Rate [Pulse Oximeter] 80 82 Pulse Rate [Right Radial] Respiratory Rate 16 16 Blood Pressure [Le ft Arm] 114/72 148/70 H Pulse Oximetry 95 96 [facility] Room Air 06/14/23 07:32 06/14/23 07:32 06/14/23 07:32 Temperature 97.9 F Pulse Rate Pulse Rate [Pulse Oximeter] 79 Pulse Rate [Right Radial] Respiratory Rate 16 16 Blood Pressure [Le ft Arm] 131/72 Pulse Oximetry 96 96 96 Oxygen Delivery Me thod Room Air Room Air 06/14/23 11:00 Temperature 98.2 F Pulse Rate Pulse Rate [Pulse Oximeter] 80 Pulse Rate [Right Radial] Respiratory Rate 16 Blood Pressure [Le ft Arm] 144/77 H Pulse Oximetry 94 Oxygen Delivery Me thod Room Air Labs Labs: Laboratory Results - last 24 hr 06/13/23 06/14/23 14:27 05:56 WBC 6.24 RBC 3.96 L Hgb 11.1 L Hct 35.1 L MCV 89 MCH 28 MCHC 32 Plt Count 141 INR 1.41 H Sodium 137 Potassium 4.1 Chloride 110 Carbon Dioxide 24 Anion Gap 3 L BUN 17 Creatinine 0.6 Estimated Creat Clear 83.18 Estimated GFR 103 Glucose 92 Calcium 8.3 L Blood Type O Positive Antibody Screen NEGATIVE
--- NOTE | 2023-06-14 14:43 | W.ANESCHARGE ---
Anesthesia Charges Start Date/Time Anesthesia Start Date: 06/14/23 Anesthesia Start Time: 12:21 Stop Date/Time Anesthesia Stop Date: 06/14/23 Anesthesia Stop Time: 14:23 Summary Extremes of Age - Over 70 or under 1: MDA
--- NOTE | 2023-06-14 18:04 | PC.NURSE ---
Pt alert and oriented. Pt pleasant and cooperative. Pt had no complaints of pain prior to or after surgery. Pt was taken to surgery at 1220pm. Pt returned from surgery at 1455. Pt drowsy after surgery. Pt slept until around 1645 and started waking up. Pt advanced to regular diet and tolerated well.? at bedside during most of shift. ?
[2023-06-14] MEDS: ACETAMINOPHEN 325 MG TABLET 650 MG PO (18:50)
[2023-06-14] MEDS: CEFAZOLIN 2 GM in 0.9 % SODIUM CHLORIDE Mini-bag 100 ML IVPB (18:52)
[2023-06-14] MEDS: ATORVASTATIN CALCIUM 40 MG TABLET PO (20:54)
[2023-06-14] MEDS: SODIUM CHLORIDE 0.9 % (FLUSH) 10 ML SYRINGE 5 ML IVF (20:55)
[2023-06-14] MEDS: Fluticasone Furoate-Vilanterol [Breo Ellipta] 1 EACH IH (20:56)
[2023-06-15] MEDS: ACETAMINOPHEN 325 MG TABLET 650 MG PO ×4 (01:28→17:52)
[2023-06-15 03:00] VITALS: BP 132/76; PULSE 80; RESP 12; TEMP 36.8; O2SAT 95
[2023-06-15] MEDS: CEFAZOLIN 2 GM in 0.9 % SODIUM CHLORIDE Mini-bag 100 ML IVPB ×2 (03:35→10:59)
[2023-06-15 06:46] LABS: Hematocrit 33.2 % (37.0-53.0); Hemoglobin* 10.8 gm/dL (13.5-17.5); Mean Corpuscular HGB Conc 33 gm/dL (32-36); Mean Corpuscular Hemoglobin 29 pg (26-34); Mean Corpuscular Volume 88 fL (80-100); Platelet Count* 133 K/uL (140-440); Red Blood Count 3.77 m/uL (4.30-5.90); White Blood Count* 7.85 K/uL (4.50-11.00)
[2023-06-15 06:49] LABS: Slide Review Reflex No
[2023-06-15 06:55] LABS: Chloride* 109 mmol/L (96-114)
[2023-06-15 06:56] LABS: Potassium* 4.6 mmol/L (3.6-5.1); Sodium* 135 mmol/L (135-149)
[2023-06-15 06:58] LABS: Creatinine* 0.6 mg/dL (0.5-1.5); Est. Creatinine Clearance* 83.18; Estimated Glomerular Filt Rate 103 ml/min
[2023-06-15 06:59] LABS: Anion Gap 6 mEq/L (7-15); Blood Urea Nitrogen* 18 mg/dL (7-30); Calcium* 8.2 mg/dL (8.4-10.6); Carbon Dioxide* 20 mmol/L (20-32); Glucose* 101 mg/dL (60-115)
--- NOTE | 2023-06-15 07:22 | PM.ORPN ---
Subjective Subjective Time Seen by Provider: 06:40 Date Seen: 06/15/23 Principal diagnosis: Day 1 s/p left femur intertrochanteric fracture fixation with IM nail Interval history: Eligio is doing well this morning, resting in bed. , Racquel, was present on speakerphone. Eligio reports minimal left hip pain. Slept well last night. Denies: chest pain, SOB, fever, chills, numbness/tingling distally. Patient has not yet ambulated since surgery, but has PT/OT coming by later this morning. Eligio understands he is able to weightbear as tolerated. No acute events overnight. Ortho Exam Narrative Exam Narrative: Incision/Dressing: Dressing appears clean and dry. No drainage present. Mepilex intact. Left hip appears moderately swollen but supple with no obvious erythema, fluctuance or excessive warmth. No ecchymosis or erythematous streaking. Warmth around the wound is appropriate. Ice is being utilized as needed. CMS: Intact distally with 2+ Dorsalis pedis and Posterior Tibial pulses. 5/5 motor strength dorsal and plantar flexion. Confirmed sensation distally. Intact straight leg raise. Calf: Bilateral calves are supple, with no swelling, pain, tenderness, erythema, discoloration or coolness to the touch. Constitutional: Patient is alert and oriented x3. Patient is in no acute distress and converses without labored breathing. Patient is able to make decisions and demonstrates good insight. Patient is pleasant and cooperative. Affect is full range and appropriate for the circumstances. Const Vital Signs, click to edit/add: Vital Signs - 24 hr 06/14/23 07:32 06/14/23 07:32 06/14/23 07:32 Temperature 97.9 F Pulse Rate Pulse Rate [Pulse Oximeter] 79 Respiratory Rate 16 16 Blood Pressure Blood Pressure [Left Arm] 131/72 Pulse Oximetry 96 96 96 Oxygen Delivery Method Room Air Room Air Oxygen Flow Rate 06/14/23 11:00 06/14/23 14:20 06/14/23 14:25 Temperature 98.2 F 98.5 F Pulse Rate 80 80 Pulse Rate [Pulse Oximeter] 80 Respiratory Rate 16 18 18 Blood Pressure 129/80 131/73 Blood Pressure [Left Arm] 144/77 H Pulse Oximetry 94 94 94 Oxygen Delivery Method Room Air Room Air Nasal Cannula Oxygen Flow Rate 2 06/14/23 14:30 06/14/23 14:35 06/14/23 14:40 Temperature 99.0 F Pulse Rate 80 80 80 Pulse Rate [Pulse Oximeter] Respiratory Rate 16 16 12 Blood Pressure 139/67 139/70 138/76 Blood Pressure [Left Arm] Pulse Oximetry 98 98 93 Oxygen Delivery Method Nasal Cannula Nasal Cannula Nasal Cannula Oxygen Flow Rate 2 1 1 06/14/23 14:45 06/14/23 14:50 06/14/23 14:55 Temperature 98.5 F 97.1 F L Pulse Rate 80 80 82 Pulse Rate [Pulse Oximeter] Respiratory Rate 12 14 14 Blood Pressure 139/73 143/78 H Blood Pressure [Left Arm] 145/73 H Pulse Oximetry 95 95 Oxygen Delivery Method Room Air Room Air Nasal Cannula Oxygen Flow Rate 1 06/14/23 14:55 06/14/23 14:55 06/14/23 15:00 Temperature 97.1 F L 97.1 F L Pulse Rate 80 Pulse Rate [Pulse Oximeter] 82 Respiratory Rate 14 14 Blood Pressure Blood Pressure [Left Arm] 145/73 H 145/73 H Pulse Oximetry 92 92 Oxygen Delivery Method Nasal Cannula Nasal Cannula Oxygen Flow Rate 1 1 06/14/23 15:00 06/14/23 15:00 06/14/23 15:15 Temperature 97.1 F L 97.7 F Pulse Rate Pulse Rate [Pulse Oximeter] 80 80 Respiratory Rate 14 16 16 Blood Pressure Blood Pressure [Left Arm] 141/73 H 145/73 H Pulse Oximetry 92 96 91 Oxygen Delivery Method Nasal Cannula Nasal Cannula Room Air Oxygen Flow Rate 1 1 0 06/14/23 15:21 06/14/23 15:30 06/14/23 15:45 Temperature 97.4 F L 97.9 F Pulse Rate 80 Pulse Rate [Pulse Oximeter] 80 81 Respiratory Rate 16 16 Blood Pressure Blood Pressure [Left Arm] 153/73 H 149/77 H Pulse Oximetry 97 98 Oxygen Delivery Method Room Air Room Air Oxygen Flow Rate 0 0 06/14/23 16:15 06/14/23 16:45 06/14/23 17:45 Temperature 97.9 F 98.0 F 98.5 F Pulse Rate Pulse Rate [Pulse Oximeter] 80 81 80 Respiratory Rate 16 16 16 Blood Pressure Blood Pressure [Left Arm] 143/76 H 149/70 H 150/76 H Pulse Oximetry 98 97 93 Oxygen Delivery Method Room Air Room Air Room Air Oxygen Flow Rate 0 0 0 06/14/23 18:45 06/14/23 19:45 06/14/23 20:45 Temperature 98.7 F 98.4 F 97.8 F Pulse Rate Pulse Rate [Pulse Oximeter] 80 81 80 Respiratory Rate 16 16 18 Blood Pressure Blood Pressure [Left Arm] 132/85 125/70 116/66 Pulse Oximetry 94 Oxygen Delivery Method Room Air Room Air Room Air Oxygen Flow Rate 0 06/14/23 23:00 06/14/23 23:00 06/14/23 23:00 Temperature 98.7 F Pulse Rate Pulse Rate [Pulse Oximeter] 81 Respiratory Rate 16 16 Blood Pressure Blood Pressure [Left Arm] 126/70 Pulse Oximetry 94 94 94 Oxygen Delivery Method Room Air Room Air Oxygen Flow Rate 06/15/23 03:00 Temperature 98.2 F Pulse Rate Pulse Rate [Pulse Oximeter] 80 Respiratory Rate 12 Blood Pressure Blood Pressure [Left Arm] 132/76 Pulse Oximetry 95 Oxygen Delivery Method Room Air Oxygen Flow Rate Assessment and Plan Assessment and plan (1) Closed fracture of left hip: Problem details: Day 1 s/p left femur intertrochanteric fracture fixation with IM nail Status: Acute Plan - Complete 23 hour perioperative antibiotics. - PT/OT consults for education and assistance. - Weight bear as tolerated with a walker for assistance. - Prescribed analgesics as needed. Patient is content with current narcotic medications. Minimize narcotic pain medication use; wean off and discontinue as soon as possible. - DVT prophylaxis: resume Eliquis. Also bilateral knee high Kevan stockings (x 1 month), frequent ambulation and ankle pumps when sedentary. - Social consult for discharge planning. - Anticipate patient will be discharged to SNF once as long as the patient remains medically stable, pain is well controlled and the patient is safe with ambulation. - Return to clinic in 1-2 weeks for a wound check with myself. Mepilex dressing to be removed in 5-7 days or sooner if dressing becomes saturated. Notify our clinic with any wound related concerns. - Return to clinic in [address] Townsend. - Phone Orthopedics with any questions or concerns. [phone]
[2023-06-15 07:38] VITALS: BP 128/67; PULSE 79; PULSE 80; RESP 12; TEMP 37.2; O2SAT 94
--- NOTE | 2023-06-15 08:20 | PC.NURSE ---
Patient pleasant, alert and oriented. Remained in bed tonight. Denied left hip pain. Scheduled Tylenol effective. VSS. ?
[2023-06-15] MEDS: APIXABAN 5 MG TABLET PO ×2 (09:10→21:09)
--- NOTE | 2023-06-15 10:53 | P.IMPN_ITS ---
Progress Note: A&P Assessment and plan (1) Closed fracture of left hip: Problem details: -fall from standing 06/13 -plain film shows comminuted fracture of the intertrochanteric left hip 06/15: POD#1 s/p left femur intertrochanteric fracture fixation with intramedullary nail -hemoglobin 10.8, platelets 133 postoperatively in setting of fracture, continue to monitor. Asymptomatic -continue pain management as needed -Eliquis has been resumed -d/c IVF, patient has good oral intake -PT/OT -patient and plan to return home and have home set up to accommodate Status: Acute (2) Atrial fibrillation: Problem details: -s/p permanent pacemaker and atrioventricular alexi ablation 04/2023 (Reviewed Dr. Bee's note 04/23/23) -h/o MAZE and left atrial appendage ligation 2013 (at the time of his septal myectomy and aortic dissection repair) -on apixaban (last dose 06/12). Hold pending surgical procedure left hip 06/14 -telemetry without events 06/15: Eliquis resumed Status: Acute (3) Pacemaker: Problem details: -and atrioventricular alexi ablation April 2023 (Dr. Bee, [facility]) Status: Acute (4) COPD mixed type: Problem details: -CXR shows slight interstitial prominence which may relate to chronic lung markings are mild interstitial edema. Lucency at the right lung base which is favored to represent pulmonary emphysematous changes or artifact due to technique. 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 PT and OT on board for patient returning to home with home therapy. Time Spent With Patient Total time spent: Total time spent caring for the patient today was 45 minutes. This includes time spent for the visit reviewing the chart, time spent during the visit, time spent after the visit and documentation and planning in coordination of care. Subjective Date Seen: 06/15/23 Interval history: Patient is seen with at bedside this morning. POD#1 s/p left hip intramedullary nail. He is doing very well. Reports pain not at all bothersome. He slept well overnight. His says that he more or less snapped out of anesthesia last evening. He denies headache or dizziness this morning. No chest pain or shortness of breath. No fevers. Tolerating orals without nausea vomiting. Patient remained vitally stable overnight. Labs are appropriate this morning. and patient would like to return home for therapy. Do not have interest in short-term rehab facility. tells me he lives on the 1st floor and has all the necessary accessories from a previous hospitalization. Exam Narrative: Exam Narrative: PHYSICAL EXAM General: Sitting up in chair, pleasant, smiling, conversant, NAD Cardiovascular: RRR, S1S2. +1 pitting edema left foot Pulmonary: CTA bilaterally without rhonchi, rales, expiratory wheezes. No dyspnea Neurological: Alert, answering questions appropriately, cranial nerves intact, no focal findings Extremities: Distal pulses, strong, intact. Neurovascularly intact Skin: Warm, dry. Postoperative dressing in place, dry. Const: Vital Signs, click to edit/add: Vital Signs - 24 hr 06/14/23 11:00 06/14/23 14:20 06/14/23 14:25 Temperature 98.2 F 98.5 F Pulse Rate 80 80 Pulse Rate [Pulse Oximeter] 80 Respiratory Rate 16 18 18 Blood Pressure 129/80 131/73 Blood Pressure [Le ft Arm] 144/77 H Pulse Oximetry 94 94 94 Oxygen Delivery Me thod Room Air Room Air Nasal Cannula Oxygen Flow Rate 2 06/14/23 14:30 06/14/23 14:35 06/14/23 14:40 Temperature 99.0 F Pulse Rate 80 80 80 Pulse Rate [Pulse Oximeter] Respiratory Rate 16 16 12 Blood Pressure 139/67 139/70 138/76 Blood Pressure [Le ft Arm] Pulse Oximetry 98 98 93 Oxygen Delivery Me thod Nasal Cannula Nasal Cannula Nasal Cannula Oxygen Flow Rate 2 1 1 06/14/23 14:45 06/14/23 14:50 06/14/23 14:55 Temperature 98.5 F 97.1 F L Pulse Rate 80 80 82 Pulse Rate [Pulse Oximeter] Respiratory Rate 12 14 14 Blood Pressure 139/73 143/78 H Blood Pressure [Le ft Arm] 145/73 H Pulse Oximetry 95 95 Oxygen Delivery Me thod Room Air Room Air Nasal Cannula Oxygen Flow Rate 1 06/14/23 14:55 06/14/23 14:55 06/14/23 15:00 Temperature 97.1 F L 97.1 F L Pulse Rate 80 Pulse Rate [Pulse Oximeter] 82 Respiratory Rate 14 14 Blood Pressure Blood Pressure [Le ft Arm] 145/73 H 145/73 H Pulse Oximetry 92 92 Oxygen Delivery Me thod Nasal Cannula Nasal Cannula Oxygen Flow Rate 1 1 06/14/23 15:00 06/14/23 15:00 06/14/23 15:15 Temperature 97.1 F L 97.7 F Pulse Rate Pulse Rate [Pulse Oximeter] 80 80 Respiratory Rate 14 16 16 Blood Pressure Blood Pressure [Le ft Arm] 141/73 H 145/73 H Pulse Oximetry 92 96 91 Oxygen Delivery Me thod Nasal Cannula Nasal Cannula Room Air Oxygen Flow Rate 1 1 0 06/14/23 15:21 06/14/23 15:30 06/14/23 15:45 Temperature 97.4 F L 97.9 F Pulse Rate 80 Pulse Rate [Pulse Oximeter] 80 81 Respiratory Rate 16 16 Blood Pressure Blood Pressure [Le ft Arm] 153/73 H 149/77 H Pulse Oximetry 97 98 Oxygen Delivery Me thod Room Air Room Air Oxygen Flow Rate 0 0 06/14/23 16:15 06/14/23 16:45 06/14/23 17:45 Temperature 97.9 F 98.0 F 98.5 F Pulse Rate Pulse Rate [Pulse Oximeter] 80 81 80 Respiratory Rate 16 16 16 Blood Pressure Blood Pressure [Le ft Arm] 143/76 H 149/70 H 150/76 H Pulse Oximetry 98 97 93 Oxygen Delivery Me thod Room Air Room Air Room Air Oxygen Flow Rate 0 0 0 06/14/23 18:45 06/14/23 19:45 06/14/23 20:45 Temperature 98.7 F 98.4 F 97.8 F Pulse Rate Pulse Rate [Pulse Oximeter] 80 81 80 Respiratory Rate 16 16 18 Blood Pressure Blood Pressure [Le ft Arm] 132/85 125/70 116/66 Pulse Oximetry 94 Oxygen Delivery Me thod Room Air Room Air Room Air Oxygen Flow Rate 0 06/14/23 23:00 06/14/23 23:00 06/14/23 23:00 Temperature 98.7 F Pulse Rate Pulse Rate [Pulse Oximeter] 81 Respiratory Rate 16 16 Blood Pressure Blood Pressure [Le ft Arm] 126/70 Pulse Oximetry 94 94 94 Oxygen Delivery Me thod Room Air Room Air Oxygen Flow Rate 06/14/23 23:00 06/15/23 03:00 06/15/23 07:38 Temperature 98.2 F 98.9 F Pulse Rate 80 Pulse Rate [Pulse Oximeter] 80 80 Respiratory Rate 12 12 Blood Pressure Blood Pressure [Le ft Arm] 132/76 128/67 Pulse Oximetry 95 94 Oxygen Delivery Me thod Room Air Room Air Oxygen Flow Rate 06/15/23 07:38 06/15/23 07:38 06/15/23 07:38 Temperature Pulse Rate 79 Pulse Rate [Pulse Oximeter] 80 Respiratory Rate 12 Blood Pressure Blood Pressure [Le ft Arm] Pulse Oximetry 94 Oxygen Delivery Me thod Oxygen Flow Rate 06/15/23 07:38 Temperature Pulse Rate Pulse Rate [Pulse Oximeter] Respiratory Rate 12 Blood Pressure Blood Pressure [Le ft Arm] Pulse Oximetry 94 Oxygen Delivery Me thod Room Air Oxygen Flow Rate 0 Labs Labs: Laboratory Results - last 24 hr 06/15/23 05:56 WBC 7.85 RBC 3.77 L Hgb 10.8 L Hct 33.2 L MCV 88 MCH 29 MCHC 33 Plt Count 133 L Sodium 135 Potassium 4.6 Chloride 109 Carbon Dioxide 20 Anion Gap 6 L BUN 18 Creatinine 0.6 Estimated Creat Clear 83.18 Estimated GFR 103 Glucose 101 Calcium 8.2 L
[2023-06-15] MEDS: SODIUM CHLORIDE 0.9 % (FLUSH) 10 ML SYRINGE 5 ML IVF ×2 (10:56→21:09)
[2023-06-15 11:01] VITALS: BP 148/72; PULSE 84; RESP 14; TEMP 37.1; O2SAT 96
[2023-06-15 15:00] VITALS: BP 144/73; PULSE 80; PULSE 82; RESP 14; TEMP 37.1; O2SAT 97
--- NOTE | 2023-06-15 16:02 | PC.SOCIAL ---
Addendum entered by ALONDRA Garcia 06/18/23 10:30: Called [facility] and confirmed pt is on service to start today. No additional information is needed by [facility]. Original Note: Discharge planning: Met with pt and regarding d/c plans. Both are in agreement they plan on pt returning home at discharge and are not interested in a retirement placement. Pt has been living on the first floor of their home since prior medical issues and has all the needed equipment available at home to stay on one floor. Pt and are agreeable to home care per MD order for PT/OT and RN. Provided them with resource list of home care agencies serving their area with Department of Health Ratings and information on where to find those ratings. Pt requested home care be arranged with [facility] as he had this service a few years ago and was pleased with the care. Called [facility] in [place] [phone]. Spoke with [facility] in intake who confirmed they can provide the care needed and are aware of potential for discharge in the next few days. Faxed requested MD order, H&P, Progress note, PT and OT notes to [facility] intake at [phone]. WHen pt is discharged, discharge orders and confirmation of discharge date needs to be faxed to [facility] Intake at [phone]. Met with pt and who are aware and agree with these arrangements. Pt and indicate they have no other social work needs at this time and are aware of how to contact social insurance specialist if additional resources are needed.
--- NOTE | 2023-06-15 17:58 | PC.NURSE ---
End of Shift: Patient pleasant and cooperative. Patient vitally stable, lungs clear, BS WNL, IV SL and intact. Patient rates pain at most 3/10, only taking scheduled tylenol. Patient 1 assist, walker, gb. Patient using urinal and toilet, urinating well and had 1 mod formed BM. Patient has been up in chair and tolerating and regular diet. Patient ambulating to toilet and ambulated in the alaniz with therapy. Left hip dressings C/D/I. Tele=Paced
[2023-06-15] MEDS: Fluticasone Furoate-Vilanterol [Breo Ellipta] 1 EACH IH (21:09)
[2023-06-15] MEDS: ATORVASTATIN CALCIUM 40 MG TABLET PO (21:09)
[2023-06-15 21:14] VITALS: BP 133/70; PULSE 81; RESP 16; TEMP 36.6; O2SAT 94
[2023-06-15 23:00] VITALS: BP 132/73; PULSE 79; PULSE 80; PULSE 81; RESP 16; TEMP 36.8; O2SAT 95
[2023-06-16] MEDS: ACETAMINOPHEN 325 MG TABLET 650 MG PO ×3 (00:06→12:06)
[2023-06-16 04:25] VITALS: BP 133/67; PULSE 80; RESP 16; TEMP 36.7; O2SAT 90
[2023-06-16 06:46] LABS: Hematocrit 32.5 % (37.0-53.0); Hemoglobin* 10.5 gm/dL (13.5-17.5); Mean Corpuscular HGB Conc 32 gm/dL (32-36); Mean Corpuscular Hemoglobin 28 pg (26-34); Mean Corpuscular Volume 88 fL (80-100); Platelet Count* 133 K/uL (140-440); White Blood Count* 8.42 K/uL (4.50-11.00)
[2023-06-16 06:47] LABS: Slide Review Reflex No
--- NOTE | 2023-06-16 06:57 | PC.NURSE ---
Pt alert and oriented x3. Afebrile. Pt rates pain 3/10 in left hip, pain managed with scheduled Tylenol and ice to surgical site. Pt denies chest pain, SOB, and N/V. Pt reported dry/itchy back, lotion applied. Pt's left hip dressing is CDI. Pt is up SBA with walker and gait belt, voiding, and tolerating regular diet. Pt slept throughout most of night.
[2023-06-16 07:00] VITALS: BP 119/59; PULSE 80; RESP 16; TEMP 36.9; O2SAT 95; O2SAT 96
[2023-06-16 07:04] LABS: Chloride* 108 mmol/L (96-114)
[2023-06-16 07:05] LABS: Sodium* 136 mmol/L (135-149)
[2023-06-16 07:07] LABS: Creatinine* 0.6 mg/dL (0.5-1.5); Est. Creatinine Clearance* 74.33; Estimated Glomerular Filt Rate 103 ml/min
[2023-06-16 07:08] LABS: Anion Gap 5 mEq/L (7-15); Blood Urea Nitrogen* 16 mg/dL (7-30); Calcium* 8.1 mg/dL (8.4-10.6); Carbon Dioxide* 23 mmol/L (20-32); Glucose* 90 mg/dL (60-115)
[2023-06-16] MEDS: SODIUM CHLORIDE 0.9 % (FLUSH) 10 ML SYRINGE 5 ML IVF (09:35)
[2023-06-16] MEDS: APIXABAN 5 MG TABLET PO (09:35)
[2023-06-16 11:00] VITALS: BP 119/56; PULSE 80; RESP 16; TEMP 37; O2SAT 95
--- NOTE | 2023-06-16 12:05 | P.ORPN_ITS ---
Subjective Subjective Date Seen: 06/16/23 Principal diagnosis: Day 2 s/p left femur intertrochanteric fracture fixation with IM nail Interval history: Patient reports doing well. No acute events over night. Pain managed with scheduled and PRN medications, ice - he is not requiring oxycodone for pain during this hospital stay. DVT prophylaxis: Apixaban 5 mg b.i.d., bilateral knee high Kevan stockings, SCDs, walking. Denies fevers, chills, aches, N/V, CP, SOB/MACKAY, or lightheadedness. He just finished a shower with OT, which went well. States that he typically works out in the pool at [place], enjoys walking at the [employer]. Formally employed by [employer] - [place]. Ortho Exam Narrative Exam Narrative: -Patient appears comfortable in recliner; no apparent acute distress -Alert and oriented times 3 -Operative hip moderately swollen; soft tissues supple; no obvious erythema. Warmth appropriate -Surgical dressing clean, dry, intact; no obvious drainage, no erythematous streaking peripheral to the bandage -Bilateral calves soft and supple; no significant swelling, edema, tenderness, erythema, discoloration, warmth, or palpable cords -right anterior lower leg has an old, non healing wound that appears healthy. It is approximately 4 cm in diameter; no erythematous streaking, or drainage. This area has been biopsied in the past per patient. -2+ DP/PT pulses, intact dermatomes and myotomes distally (5/5 strength). No numbness about the lateral femoral cutaneous nerve distribution. Const Vital Signs, click to edit/add: Vital Signs - 24 hr 06/15/23 15:00 06/15/23 15:00 06/15/23 15:00 Temperature 98.7 F Pulse Rate 80 Pulse Rate [Pulse Oximeter] 82 Respiratory Rate 14 Blood Pressure [Left Arm] 144/73 H Pulse Oximetry 97 97 Oxygen Delivery Method Room Air Oxygen Flow Rate 06/15/23 15:00 06/15/23 15:00 06/15/23 21:14 Temperature 97.8 F Pulse Rate Pulse Rate [Pulse Oximeter] 82 81 Respiratory Rate 14 14 16 Blood Pressure [Left Arm] 133/70 Pulse Oximetry 97 94 Oxygen Delivery Method Room Air Room Air Oxygen Flow Rate 0 06/15/23 23:00 06/15/23 23:00 06/15/23 23:00 Temperature Pulse Rate 79 Pulse Rate [Pulse Oximeter] 81 Respiratory Rate 16 Blood Pressure [Left Arm] Pulse Oximetry 95 Oxygen Delivery Method Oxygen Flow Rate 06/15/23 23:00 06/15/23 23:00 06/16/23 04:25 Temperature 98.2 F 98.0 F Pulse Rate Pulse Rate [Pulse Oximeter] 80 80 Respiratory Rate 16 16 16 Blood Pressure [Left Arm] 132/73 133/67 Pulse Oximetry 95 95 90 Oxygen Delivery Method Room Air Room Air Room Air Oxygen Flow Rate 06/16/23 07:00 06/16/23 07:00 06/16/23 07:00 Temperature 98.5 F Pulse Rate Pulse Rate [Pulse Oximeter] 80 Respiratory Rate 16 Blood Pressure [Left Arm] 119/59 L Pulse Oximetry 96 95 95 Oxygen Delivery Method Room Air Room Air Oxygen Flow Rate 06/16/23 11:00 Temperature 98.6 F Pulse Rate Pulse Rate [Pulse Oximeter] 80 Respiratory Rate 16 Blood Pressure [Left Arm] 119/56 L Pulse Oximetry 95 Oxygen Delivery Method Room Air Oxygen Flow Rate Assessment and Plan Assessment and plan (1) Closed fracture of left hip: Problem details: Status post left intramedullary nail (date of surgery 06/14/2023 - Dr. Townsend) Status: Acute (2) Atrial fibrillation: Problem details: -s/p permanent pacemaker and atrioventricular alexi ablation 04/2023 (Reviewed Dr. Bee's note 04/23/23) -h/o MAZE and left atrial appendage ligation 2013 (at the time of his septal myectomy and aortic dissection repair) -on apixaban (last dose 06/12). Hold pending surgical procedure left hip 06/14 -telemetry without events 06/15: Eliquis resumed Status: Acute (3) Pacemaker: Problem details: -and atrioventricular [facility]lex[facility] April [facility] Status: Acute (4) COPD mixed type: Problem details: -CXR shows slight interstitial prominence which may relate to chronic lung markings are mild interstitial edema. Lucency at the right lung base which is favored to represent pulmonary emphysematous changes or artifact due to technique. 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 - PT/OT consult for education and assistance. - Social work consult for discharge planning - plan is to discharge home with family. - Prescribed analgesics as needed - has not needed oxycodone during this hospital stay, will prescribe a few tablets for home. - DVT prophylaxis: Apixaban 5 mg b.i.d., bilateral knee high Kevan Hose stockings and SCDs - Anticipation is for discharge to home with family, 06/16/2023 if the patient remains medically stable, pain is controlled, and they are safe with mobilization.
--- NOTE | 2023-06-16 13:29 | P.DS_ITS ---
DS: Providers Provider Date Seen: 06/16/23 Date of admission: 06/13/23 14:49 Primary care physician: Saúl Robison MD Admitting Clinician: Rhiannon Townsend MD Consults: 06/14/23 15:00 Consult to Physical Therapy [CONS] Routine Comment: Reason(s) for PT Consult:: Evaluate and Treat Any Restrictions?:: No Restrictions Comment: post op left hip repair 06/1406/14/23 15:06 Consult to Occupational Therapy [CONS] Routine Comment: Reason(s) for OT Consult:: Evaluate and Treat Any Restrictions?:: See Comment Comment: evaluate and treat Consult to Physical Therapy [CONS] Routine Comment: Reason(s) for PT Consult:: Evaluate and Treat Any Restrictions?:: Wt Bearing as Tolerated Consult to Psychiatry Teacher [CONS] Routine Comment: Reason for Consult:: Discharge Planning Needs Attending Physician on discharge: Terrie Mcmahan PA-C Date of Discharge: 06/16/23 DS: Diagnosis Discharge Diagnosis (1) Closed fracture of left hip: Status: Acute Problem details: Status post left intramedullary nail (date of surgery 06/14/2023 - Dr. Townsend). Postoperative recommendations and follow-up Orthopedic Surgery. PT and OT consulted postoperatively. Patient is discharged to home with home health services. (2) Atrial fibrillation: Status: Acute Problem details: -s/p permanent pacemaker and atrioventricular alexi ablation 04/2023 (Reviewed Dr. Bee's note 04/23/23) -h/o MAZE and left atrial appendage ligation 2013 (at the time of his septal myectomy and aortic dissection repair) Patient is continued on apixaban postoperatively. No events recorded during hospitalization. (3) Pacemaker: Status: Acute Problem details: -and atrioventricular alexi ablation April 2023 (Dr. Bee, [facility]) Patient used home monitor during hospital stay without events. (4) COPD mixed type: Status: Chronic Problem details: Patient was continued on Breo with use of incentive spirometry, aerobika for pulmonary hygiene postoperatively. 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 while on apixaban -s/p craniotomy with hematoma evacuation and ventriculostomy (removed) (7) Cardiomyopathy: Status: Acute Problem details: -hypertrophic obstructive -s/p septal myectomy 2013 (8) Hx of repair of dissecting thoracic aortic aneurysm, [place] type A: Status: Acute Problem details: -2013 (9) Hyperlipidemia: Status: Chronic Problem details: Continued on statin DS: Summary Hospital Course Hospital Course: [age] year old male complicated past medical history significant for atrial fibrillation status post ablation and permanent pacemaker, history of cerebellar hemorrhage, embolic stroke, cardiomyopathy, hypertension, hyperlipidemia, history of repair of dissecting thoracic aortic aneurysm was admitted to the medical floor for further management and surgical intervention of left intratrochanteric femur fracture. Course of care and details as noted above. Patient remained vitally stable, doing very well perioperatively. Surgery completed successfully without complications. Patient resumed home dose of Eliquis. He is discharged home with postoperative recommendations per Orthopedic surgery including outpatient orthopedic clinical follow-up. Is recommended he follow-up with his PCP given his complicated past medical history for a post hospital visit. He has a cardiology visit upcoming in July. Remainder of chronic medical comorbidities were monitored and managed with home medications. Status at Discharge Functional status at discharge: uses cane/walker Overall status at discharge: patient is progressing back to baseline Time Spent with Patient Time attestation: Total time spent providing and/or coordinating discharge services: Time spent: Greater than 30 minutes Exam Narrative: Exam Narrative: PHYSICAL EXAM General: Pleasant, conversant, NAD Cardiovascular: RRR Pulmonary: No dyspnea Neurological: Alert, answering questions appropriately Skin: Warm, dry. Const: Vital Signs, click to edit/add: Vital Signs - 24 hr 06/15/23 15:00 06/15/23 15:00 06/15/23 15:00 Temperature 98.7 F Pulse Rate 80 Pulse Rate [Pulse Oximeter] 82 Respiratory Rate 14 Blood Pressure [Le ft Arm] 144/73 H Pulse Oximetry 97 97 Oxygen Delivery Me thod Room Air Oxygen Flow Rate 06/15/23 15:00 06/15/23 15:00 06/15/23 21:14 Temperature 97.8 F Pulse Rate Pulse Rate [Pulse Oximeter] 82 81 Respiratory Rate 14 14 16 Blood Pressure [Le ft Arm] 133/70 Pulse Oximetry 97 94 Oxygen Delivery Me thod Room Air Room Air Oxygen Flow Rate 0 06/15/23 23:00 06/15/23 23:00 06/15/23 23:00 Temperature Pulse Rate 79 Pulse Rate [Pulse Oximeter] 81 Respiratory Rate 16 Blood Pressure [Le ft Arm] Pulse Oximetry 95 Oxygen Delivery Me thod Oxygen Flow Rate 06/15/23 23:00 06/15/23 23:00 06/16/23 04:25 Temperature 98.2 F 98.0 F Pulse Rate Pulse Rate [Pulse Oximeter] 80 80 Respiratory Rate 16 16 16 Blood Pressure [Le ft Arm] 132/73 133/67 Pulse Oximetry 95 95 90 Oxygen Delivery Me thod Room Air Room Air Room Air Oxygen Flow Rate 06/16/23 07:00 06/16/23 07:00 06/16/23 07:00 Temperature 98.5 F Pulse Rate Pulse Rate [Pulse Oximeter] 80 Respiratory Rate 16 Blood Pressure [Le ft Arm] 119/59 L Pulse Oximetry 96 95 95 Oxygen Delivery Me thod Room Air Room Air Oxygen Flow Rate 06/16/23 11:00 Temperature 98.6 F Pulse Rate Pulse Rate [Pulse Oximeter] 80 Respiratory Rate 16 Blood Pressure [Le ft Arm] 119/56 L Pulse Oximetry 95 Oxygen Delivery Me thod Room Air Oxygen Flow Rate DS: Data Data Completed and Pending Labs on day of discharge: Labs from last 24 hours 06/16/23 06:10 WBC 8.42 RBC 3.70 L Hgb 10.5 L Hct 32.5 L MCV 88 MCH 28 MCHC 32 Plt Count 133 L Sodium 136 Potassium 4.0 Chloride 108 Carbon Dioxide 23 Anion Gap 5 L BUN 16 Creatinine 0.6 Estimated Creat Clear 74.33 Estimated GFR 103 Glucose 90 Calcium 8.1 L Discharge Plan Discharge Disposition: Home, Self-Care Date of Admission: 06/13/23 14:49 Attending Provider on Discharge: Terrie Mcmahan Consulting Providers: Minh Townsend Primary Care Provider: Saúl Robison Condition: Stable Anticipated Discharge Date/Time: 06/16/23 13:25 Discharge Medications: New sennosides-docusate sodium [Senna-S] 8.6-50 mg tablet 1 - 4 tab-cap PO BID PRN (Reason: constipation) Qty: 60 0RF Rx Instructions: Hold medication if experiencing loose stools. oxycodone 5 mg tablet 2.5 - 5 mg PO Q4-6H MDD 6 PRN (Reason: pain) Qty: 25 0RF Rx Instructions: Take as needed for postop pain: 2.5mg mild pain, 5mg moderate-severe pain; wean as tolerated. Continued atorvastatin 40 mg tablet 40 mg PO DAILY Eliquis 5 mg tablet 5 mg PO BID fluticasone furoate-vilanterol [Breo Ellipta] 100-25 mcg/dose blister with device 1 ea inhalation DAILY acetaminophen 325 mg tablet 650 mg PO Q6H PRN Discontinued amoxicillin 500 mg capsule 1,000 mg PO BID Discharge Orders: Discharge Order (Routine); Ordered 06/16/23 Ordered By: Mikey Sylvester Consulting provider completed their portion of the discharge: Yes Patient Education: ORIF of Hip Fracture (DC) Additional Instructions: Postoperative guidelines per Orthopedic surgery. Follow-up with your PCP for a post hospital visit. Activity Level: Activity as Tolerated, Weight Bearing as Tolerated and Use Walker Activity Detail: - Mobilize with physical therapy and occupational therapy. - For pain control: acetaminophen and Oxycodone as needed. Ice left hip as needed as well. - For DVT prophylaxis, patient will restart Eliquis 5 mg bid and wear his Kevan hose stockings daily x 1 month. May remove Kevan stockings for a few hours/day, but they should be on for the majority of the day. I also encourage frequent ambulation and ankle pumps when sedentary. - Patient will follow-up with Katia Bronson P.A.-C. in [facility]opedic Clinic in 1-2 weeks. And follow-up with Dr. Townsend in 6 weeks. - Phone Orthopedics with any questions or concerns. Discharge Diet: Regular Follow Up Appointments: Katia Bronson PA-C [Physician Manufacture Specialist] - ([facility] Orthopedic department will call patient on Sunday06/18/23 to schedule follow up with Katia Bronson in 1-2 weeks.) Saúl Robison MD [Primary Care Provider] - 06/27/23 (Post hospital follow up for left hip fracture with repair) Forms: [facility] Info Instructions
--- NOTE | 2023-06-16 14:54 | PC.NURSE ---
Discharge Note: The patient discharged home with his this afternoon via wheelchair. All discharge instructions were provided to the patient and his . Both IVs were removed. All belongings were sent with the patient. The patient reported mild pain throughout the day with adequate relief with scheduled Tylenol. Dressing is CDI with no drainage present. ice pack was sent with the patient as well. Home care services are set up for the patient as well. BHARTI CAGLEN
== END 2023-06-16 14:55 | disposition home or self-care (01) | DRG 481 ==
LOC: ED 11:47 → MEDSURG 13:05
PROVIDERS: Orthopaedic Surgery; Admitting Provider Family Medicine; Emergency Provider Family Medicine; PCP Family Medicine; Visit Provider Physician Assistant
PROC: 0QS706Z Reposition Left Upper Femur with Intramedullary Internal Fixation Device, Open Approach (ICD-10-PCS; CPT 27245; principal; 2023-06-14 13:15)
DX: S72.142A Displaced intertrochanteric fracture of left femur, initial encounter for closed fracture (principal); I42.9 Cardiomyopathy, unspecified; Z95.0 Presence of cardiac pacemaker; I48.0 Paroxysmal atrial fibrillation; I10 Essential (primary) hypertension; Z86.79 Personal history of other diseases of the circulatory system; J44.9 Chronic obstructive pulmonary disease, unspecified; Z86.73 Personal history of transient ischemic attack (TIA), and cerebral infarction without residual deficits; I44.7 Left bundle-branch block, unspecified; Z79.01 Long term (current) use of anticoagulants; E78.5 Hyperlipidemia, unspecified; W18.39XA Other fall on same level, initial encounter; Y92.010 Kitchen of single-family (private) house as the place of occurrence of the external cause
CPT/HCPCS: 01210; 01230; 36415; 71045; 73502; 73551; 80048; 80076; 83880; 85025; 85027; 85610; 85730; 86850; 86900; 86901; 93005; 94761; 95992; 97110; 97116; 97161; 97165; 97535; 99100; 99285; A9270; C1713; J0330; J0690; J1100; J2250; J2270; J2405; J2704; J3010; J3475; J3490; J7030; J7120

== ENCOUNTER 2023-07-01 20:00 | Outpatient (CLI) | payer MEDICARE, BC, SELFPAY | END 2023-07-01 20:01 | disposition home or self-care (01) | LOC: AMB 07-06 17:06 | PROVIDERS: PCP Family Medicine; Visit Provider Emergency Medicine Emergency Medical Services | DX: R07.89 Other chest pain (principal) | CPT/HCPCS: A0425; A0427 ==

== ENCOUNTER 2023-07-01 20:30 | Emergency (ER) | payer MEDICARE, BC, SELFPAY ==
[2023-07-01 20:34] VITALS: BP 145/78; PULSE 86; RESP 16; TEMP 37.1; O2SAT 97; BMI 20.7
[2023-07-01 21:06] LABS: Basophils Absolute Auto 0.04 K/uL (0.00-0.30); Basophils Percent Auto 0.7 % (0.0-3.0); Eosinophils Absolute Auto 0.32 K/uL (0.00-0.50); Eosinophils Percent Auto 5.6 % (0.0-7.0); Hematocrit 38.3 % (37.0-53.0); Hemoglobin* 12.1 gm/dL (13.5-17.5); Immature Granulocytes Abs Auto 0.01 K/uL (0.00-0.30); Immature Granulocytes Pct Auto 0.2 %; Lymphocytes Absolute Auto 1.24 K/uL (0.90-2.90); Lymphocytes Percent Auto 21.6 % (20-44); Mean Corpuscular HGB Conc 32 gm/dL (32-36); Mean Corpuscular Hemoglobin 28 pg (26-34); Mean Corpuscular Volume 89 fL (80-100); Neutrophils Absolute Auto 3.66 K/uL (1.7-7.0); Neutrophils Percent Auto 63.9 % (42.0-72.0); Platelet Count* 250 K/uL (140-440); RDW Coefficient of Variation % 14.1 % (11.5-15.5); Red Blood Count 4.31 m/uL (4.30-5.90); White Blood Count* 5.73 K/uL (4.50-11.00)
[2023-07-01 21:07] LABS: Chloride* 104 mmol/L (96-114); Slide Review Reflex No; Sodium* 138 mmol/L (135-149)
[2023-07-01 21:08] LABS: Potassium* 4.2 mmol/L (3.6-5.1)
[2023-07-01 21:10] LABS: Anion Gap 6 mEq/L (7-15); Carbon Dioxide* 28 mmol/L (20-32); Creatinine* 0.8 mg/dL (0.5-1.5); Estimated Glomerular Filt Rate 95 ml/min
[2023-07-01 21:11] LABS: Blood Urea Nitrogen* 16 mg/dL (7-30); Glucose* 99 mg/dL (60-115)
[2023-07-01 21:15] LABS: Troponin, Point-of-Care* 0.02 ng/ml (0.01-0.04)
[2023-07-01 21:16] LABS: D Dimer Quantitative* 2.03 ug/ml (0.00-0.50)
--- NOTE | 2023-07-01 22:09 | ED.CHESTPAIN ---
HPI - Chest Pain General Chief Complaint: Chest Pain Stated Complaint: chest pain Time Seen by Provider: 07/01/23 20:41 History of Present Illness HPI narrative: This 73-year-old male comes in reporting chest pain. He comes in by ambulance and did receive aspirin on the way here. He has a pacemaker. He also has a remote history of a aortic dissection that was repaired surgically. Additionally he had a hip surgery a couple weeks ago. At the time of arrival here he is no longer having any chest pain. He states that it came on with no activity at all and there was no associated symptoms of lightheadedness, shortness of breath, or diaphoresis. He states that he did have some nausea and did vomit once. He is currently taking Eliquis and reports a history of a blood clot in his heart. He also states that this chest pain seemed to come around from his back but now is completely gone. Related Data Home Medications Medication Instructions Recorded Confirmed acetaminophen 325 mg tablet 650 mg PO Q6H PRN 06/13/23 06/28/23 apixaban 5 mg tablet (Eliquis) 5 mg PO BID 06/13/23 06/28/23 atorvastatin 40 mg tablet 40 mg PO DAILY 06/13/23 06/28/23 fluticasone furoate 100 1 ea inhalation DAILY 06/13/23 06/28/23 mcg-vilanterol 25 mcg/dose inhalation powder (Breo Ellipta) Previous Rx's Medication Instructions Recorded oxycodone 5 mg tablet 2.5 - 5 mg (0.5 - 1 x 5 mg) PO 06/16/23 Q4-6H PRN pain #25 tabs sennosides 8.6 mg-docusate sodium 1 - 4 tab-cap (1 - 4 x 8.6-50 mg) 06/16/23 50 mg tablet (Senna-S) PO BID PRN constipation #60 tabs Allergies Allergy/AdvReac Type Severity Reaction Status Date / Time nitroglycerin Allergy Unknown Verified 07/01/23 20:32 Review of Systems Status of ROS Reports: 10 or more systems reviewed and unremarkable except as noted in History and below Narrative Constitutional: No fevers, no weight gain or loss. Eyes: No discharge. No vision changes. HENT: No congestion, no sore throat, no ear pain. Cardiovascular: No palpitations. Chest pain as described above. Respiratory: No shortness of breath, no wheezes, no cough. Gastrointestinal: No abdominal pain, no vomiting, no diarrhea. Genitourinary: No dysuria, no hematuria. Musculoskeletal: Normal range of motion. Skin: No rashes, no pruritis. Neurological: No dizziness, weakness, sensory change, speech change. Endo/Heme/Allergies: No bruising or bleeding. No polydipsia. Pysch: no suicidality, no anxiety, no insomnia. All other systems reviewed and are negative. [facility] Medical History (Updated 07/01/23 @ 22:15 by Minh Mahoney MD) Injury of hip, left ?S79.912A - Unspecified injury of left hip, initial encounter (ICD-10) Embolic stroke ?I63.9 - Cerebral infarction, unspecified (ICD-10) NSVT (nonsustained ventricular tachycardia) ?I47.29 - Other ventricular tachycardia (ICD-10) Cerebellar hemorrhage ?I61.4 - Nontraumatic intracerebral hemorrhage in cerebellum (ICD-10) Thrombus of left atrial appendage ?I51.3 - Intracardiac thrombosis, not elsewhere classified (ICD-10) Left bundle branch block ?I44.7 - Left bundle-branch block, unspecified (ICD-10) COPD mixed type ?J44.9 - Chronic obstructive pulmonary disease, unspecified (ICD-10) Hyperlipidemia ?E78.5 - Hyperlipidemia, unspecified (ICD-10) Stroke ?I63.9 - Cerebral infarction, unspecified (ICD-10) Cardiomyopathy ?I42.9 - Cardiomyopathy, unspecified (ICD-10) AA (aortic aneurysm) ?I71.9 - Aortic aneurysm of unspecified site, without rupture (ICD-10) Pacemaker ?Z95.0 - Presence of cardiac pacemaker (ICD-10) Atrial fibrillation ?I48.91 - Unspecified atrial fibrillation (ICD-10) Hypertension ?I10 - Essential (primary) hypertension (ICD-10) Surgical History (Updated 06/27/23 @ 14:15 by Yana Marin [facility], [facility]) History of surgery on lower extremity (06/14/23) ?Z98.890 - Other specified postprocedural states (ICD-10) Hx of repair of dissecting thoracic aortic aneurysm, [place] type A ?Z98.890 - Other specified postprocedural states (ICD-10) ?Z86.79 - Personal history of other diseases of the circulatory system (ICD-10) Social History What is your current living situation?: I presently have a place to live Problems where you live: no known problems Problems where you live details: N/A In the past 12 months, utilities in danger of being shut off: no In past 12 months, lack of transportation kept you from medical appts, meetings, work, or getting things needed for daily living: no In the past 12 mos, have been you worried that your food would run out before you had money to buy more?: never true In the past 12 mos, the food you bought just didn't last and you didn't have money to buy more?: never true Smoking Status: Never smoker Do you use any of these nicotine containing products: None Second hand tobacco smoke exposure: No How often do you have a drink containing alcohol: never How often do you have six or more drinks on one occasion: Never AUDIT-C Alcohol total score: 0 Non-prescribed substance use: denies use How often does anyone, including family, friends and others, physically hurt you: never How often does anyone, including family, friends and others, insult or talk down to you: never How often does anyone, including family, friends and others, threaten you with harm: never How often does anyone, including family, friends and others, scream or curse at you: never service: No Exam Narrative Exam Narrative: Constitutional: Well-developed, well-nourished, no acute distress. HEENT: Normocephalic, atraumatic. Neck: Normal range of motion. Nontender. Supple. Heart: Regular. No murmurs. Normal rate. Intact distal pulses. Lungs: Clear to auscultation. No chest discomfort. No wheezes, rhonchi, or rales. Abdomen: Normal bowel sounds. Nontender. No rebound tenderness. Genitalia: Deferred. Back: No midline tenderness. Normal range of motion. Extremities: Normal range of motion. No injury. Skin: Intact. No rash. Warm. No erythema or pallor. Neurologic: No altered sensation. No weakness. Alert and oriented. Psychiatric: No suicidality. No anxiety or depression. No insomnia. Nursing notes and vitals signs are reviewed. Const Vital Signs, click to edit/add: Vital Signs - 24 hr 07/01/23 20:34 Temperature 98.8 F Pulse Rate [Pulse Oximeter] 86 Respiratory Rate 16 Blood Pressure [Right Upper Arm] 145/78 H Pulse Oximetry 97 Oxygen Delivery Method Room Air Course Vital Signs Vital signs: Initial Vital Signs Respiratory Effort Normal, Spontaneous, Non-Labored 07/01/23 20:31 Respiratory Depth Normal 07/01/23 20:31 Respiratory Pattern Normal 07/01/23 20:31 Vital Signs Temperature 98.8 F 07/01/23 20:34 Pulse Rate 86 07/01/23 20:34 Respiratory Rate 16 07/01/23 20:34 Blood Pressure 145/78 H 07/01/23 20:34 Pulse Oximetry 97 07/01/23 20:34 Oxygen Delivery Method Room Air 07/01/23 20:34 Temperature 98.8 F 07/01/23 20:34 Pulse Rate 86 07/01/23 20:34 Respiratory Rate 16 07/01/23 20:34 Blood Pressure 145/78 H 07/01/23 20:34 Pulse Oximetry 97 07/01/23 20:34 Oxygen Delivery Method Room Air 07/01/23 20:34 MDM - Chest Pain MDM Narrative Medical decision making narrative: This patient comes in reporting chest pain that is now resolved. He arrives here with EKG showing a paced rhythm but no we will change from his previous EKG and no obvious sign of ST or T-wave changes. An IV is established and labs are acquired. The patient did receive aspirin prior to arrival. Labs are acquired and return with normal troponin but his D-dimer was elevated. The patient did have a recent surgery. His oximetry, heart rate, and blood pressure are reassuring. I debated whether to order the D-dimer as it could very likely be elevated with his recent surgery but the revised [place] score indicates that he has significant enough risk. Additionally he is currently taking Eliquis. I described all these matters to the patient and his and he declined any further studies the, in particular he declined a CT scan of the chest with IV contrast. The patient continues to feel normal and feels okay to return home. Lab Data Labs: Lab Results 07/01/23 07/01/23 Range/Units 20:42 20:44 WBC 5.73 (4.50-11.00) K/uL RBC 4.31 (4.30-5.90) m/uL Hgb 12.1 L (13.5-17.5) gm/dL Hct 38.3 (37.0-53.0) % MCV 89 (80-100) fL MCH 28 (26-34) pg MCHC 32 (32-36) gm/dL RDW Coeff of Leonie 14.1 (11.5-15.5) % Plt Count 250 (140-440) K/uL Neut % (Auto) 63.9 (42.0-72.0) % Lymph % (Auto) 21.6 (20-44) % [place] % (Auto) 8.0 (0.0-11.0) % Eos % (Auto) 5.6 (0.0-7.0) % Baso % (Auto) 0.7 (0.0-3.0) % Neut # (Auto) 3.66 (1.7-7.0) K/uL Lymph # (Auto) 1.24 (0.90-2.90) K/uL [place] # (Auto) 0.50 (0.00-0.90) K/UL Eos # (Auto) 0.32 (0.00-0.50) K/uL Baso # (Auto) 0.04 (0.00-0.30) K/uL Abs Immat Gran (auto) 0.01 (0.00-0.30) K/uL Imm/Tot Granulo (auto) 0.2 % D-Dimer Quant (PE/DVT) 2.03 H (0.00-0.50) ug/ml Sodium 138 (135-149) mmol/L Potassium 4.2 (3.6-5.1) mmol/L Chloride 104 (96-114) mmol/L Carbon Dioxide 28 (20-32) mmol/L Anion Gap 6 L (7-15) mEq/L BUN 16 (7-30) mg/dL Creatinine 0.8 (0.5-1.5) mg/dL Estimated Creat Clear 73.90 Estimated GFR 95 ml/min Glucose 99 (60-115) mg/dL Calcium 9.0 (8.4-10.6) mg/dL POC Troponin I 0.02 (0.01-0.04) ng/ml Discharge Plan Discharge Clinical Impression: Atypical chest pain Patient Disposition: Home, Self-Care Condition: Improved Additional Instructions: Continue current plans. Follow up with MD or return if symptoms are recurrent or worsening. Prescriptions: No Action atorvastatin 40 mg tablet 40 mg PO DAILY Eliquis 5 mg tablet 5 mg PO BID fluticasone furoate-vilanterol [Breo Ellipta] 100-25 mcg/dose blister with device 1 ea inhalation DAILY acetaminophen 325 mg tablet 650 mg PO Q6H PRN sennosides-docusate sodium [Senna-S] 8.6-50 mg tablet 1 - 4 tab-cap PO BID PRN (Reason: constipation) Qty: 60 0RF Rx Instructions: Hold medication if experiencing loose stools. oxycodone 5 mg tablet 2.5 - 5 mg PO Q4-6H MDD 6 PRN (Reason: pain) Qty: 25 0RF Rx Instructions: Take as needed for postop pain: 2.5mg mild pain, 5mg moderate-severe pain; wean as tolerated. Follow Up/Referrals: Saúl Robison MD [Primary Care Provider] - Stand Alone Forms: [employer] Info Instructions
== END 2023-07-01 22:40 | disposition home or self-care (01) ==
PROVIDERS: Emergency Provider Emergency Medicine Emergency Medical Services; PCP Family Medicine
DX: R07.9 Chest pain, unspecified (principal)
CPT/HCPCS: 36415; 80048; 84484; 85025; 85379; 93005; 99284

== ENCOUNTER 2023-11-13 10:16 | Emergency (ER) | payer MEDICARE, BC, SELFPAY ==
[2023-11-13 10:20] VITALS: BP 154/75; PULSE 75; RESP 18; TEMP 36.3; O2SAT 98; BMI 20.7
--- NOTE | 2023-11-13 10:28 | ED_ITS ---
HPI - General Adult General Chief complaint: Unspecified Complaint, Adult Stated complaint: possible TIA last night Time Seen by Provider: 11/13/23 10:28 History of Present Illness HPI narrative: episode at approx 2000 last night. woke from nap and couldn't remember things . unsure of length of time because pt went to bed. woke this AM back to baseline per . no complaints now. referred to ED by clinic 73-year-old man presenting to the emergency department with concern of memory loss. This occurred relatively abruptly while watching TV last night. Just had no recollection of recent events. says she checked him for stroke and did not see anything that looked like a stroke and ultimately went to bed. He wakes with symptoms now resolved other than just feeling particularly fatigued. Is anticoagulated with Eliquis. He has no headache. No new visual changes. No focal weakness. No nausea. No fever. Cough cold symptoms otherwise. No sensation of palpitations. Upon waking this morning was still having some difficulty with recollection of the evening events but otherwise new memory seemed to be fine. Related Data Home Medications ?Medication ?Instructions ?Recorded ?Confirmed acetaminophen 325 mg tablet 650 mg PO Q6H PRN 06/13/23 11/18/23 apixaban 5 mg tablet (Eliquis) 5 mg PO BID 06/13/23 11/18/23 atorvastatin 40 mg tablet 40 mg PO DAILY 06/13/23 11/18/23 fluticasone furoate 100 1 ea inhalation DAILY 06/13/23 11/18/23 mcg-vilanterol 25 mcg/dose inhalation powder (Breo Ellipta) amiodarone 200 mg tablet 100 mg PO DAILY 07/25/23 11/18/23 losartan 25 mg tablet 25 mg PO DAILY 07/25/23 11/18/23 metoprolol tartrate 25 mg tablet 25 mg PO DAILY 07/25/23 11/18/23 mirtazapine 30 mg tablet 30 mg PO QPM 07/25/23 11/18/23 mometasone-formoterol HFA 100 2 puff inhalation BID 07/25/23 11/18/23 mcg-5 mcg/actuation aerosol inhaler (Dulera) Previous Rx's ?Medication ?Instructions ?Recorded sennosides 8.6 mg-docusate sodium 1 - 4 tab-cap (1 - 4 x 8.6-50 mg) 12/16/23 50 mg tablet (Senna-S) PO BID PRN constipation #60 tabs cephalexin 500 mg capsule 500 mg PO TID 7 days #21 caps 11/22/23 cephalexin 500 mg capsule 500 mg PO TID 7 days #21 caps 11/30/23 cephalexin 500 mg capsule 500 mg PO TID 7 days #21 caps 12/05/23 Allergies Allergy/AdvReac Type Severity Reaction Status Date / Time nitroglycerin Allergy Unknown Verified 11/20/23 11:21 Review of Systems Status of ROS: Reports: 6 or more systems reviewed and unremarkable except as noted in History and below [facility] Medical History (Updated 12/01/23 @ 00:01 by Background Daemon) Hyperlipidemia ?E78.5 - Hyperlipidemia, unspecified (ICD-10) Pacemaker ?Z95.0 - Presence of cardiac pacemaker (ICD-10) Atrial fibrillation ?I48.91 - Unspecified atrial fibrillation (ICD-10) Injury of hip, left ?S79.912A - Unspecified injury of left hip, initial encounter (ICD-10) Embolic stroke ?I63.9 - Cerebral infarction, unspecified (ICD-10) NSVT (nonsustained ventricular tachycardia) ?I47.29 - Other ventricular tachycardia (ICD-10) Cerebellar hemorrhage ?I61.4 - Nontraumatic intracerebral hemorrhage in cerebellum (ICD-10) Thrombus of left atrial appendage ?I51.3 - Intracardiac thrombosis, not elsewhere classified (ICD-10) Left bundle branch block ?I44.7 - Left bundle-branch block, unspecified (ICD-10) COPD mixed type ?J44.9 - Chronic obstructive pulmonary disease, unspecified (ICD-10) Stroke ?I63.9 - Cerebral infarction, unspecified (ICD-10) Cardiomyopathy ?I42.9 - Cardiomyopathy, unspecified (ICD-10) AA (aortic aneurysm) ?I71.9 - Aortic aneurysm of unspecified site, without rupture (ICD-10) Hypertension ?I10 - Essential (primary) hypertension (ICD-10) Surgical History History of surgery on lower extremity (06/14/23) ?Z98.890 - Other specified postprocedural states (ICD-10) Hx of repair of dissecting thoracic aortic aneurysm, [place] type A ?Z98.890 - Other specified postprocedural states (ICD-10) ?Z86.79 - Personal history of other diseases of the circulatory system (ICD- 10) Social History What is your current living situation?: I presently have a place to live Problems where you live: no known problems Problems where you live details: N/A In the past 12 months, utilities in danger of being shut off: no In past 12 months, lack of transportation kept you from medical appts, meetings, work, or getting things needed for daily living: no In the past 12 mos, have been you worried that your food would run out before you had money to buy more?: never true In the past 12 mos, the food you bought just didn't last and you didn't have money to buy more?: never true Smoking Status: Never smoker Do you use any of these nicotine containing products: None Second hand tobacco smoke exposure: No How often do you have a drink containing alcohol: never How often do you have six or more drinks on one occasion: Never AUDIT-C Alcohol total score: 0 Non-prescribed substance use: denies use How often does anyone, including family, friends and others, physically hurt you : never How often does anyone, including family, friends and others, insult or talk down to you: never How often does anyone, including family, friends and others, threaten you with harm: never How often does anyone, including family, friends and others, scream or curse at you: never service: No Exam Narrative: Exam Narrative: Tall. Slim. Pleasant. NAD. Cranial nerves 2-12 are intact. Head is atraumatic. Neck is supple. Lungs are clear. Heart with 2/6 systolic murmur across precordium loudest actually at the right sternal border. 1+ lower extremity pitting edema right a little greater than left without inflammatory changes. Abdomen is soft nontender. Is moving all extremities without difficulty, with good strength. Const: Vital Signs, click to edit/add: Vital Signs - 24 hr 11/13/23 10:20 11/13/23 12:40 Temperature 97.4 F L Pulse Rate [Right Pulse Oximeter] 75 70 Respiratory Rate 18 16 Blood Pressure [Ri ght Upper Arm] 154/75 H 131/64 Pulse Oximetry 98 99 Oxygen Delivery Me thod Room Air Room Air Documenting provider has reviewed patient's vital signs: yes Course Vital Signs Vital signs: Initial Vital Signs Temperature 97.4 F L 11/13/23 10:20 Temperature Source Temporal Artery Scan 11/13/23 10:20 Pulse Rate 75 11/13/23 10:20 Respiratory Rate 18 11/13/23 10:20 Blood Pressure 154/75 H 11/13/23 10:20 Blood Pressure Mean 101 11/13/23 10:20 Blood Pressure Position Sitting 11/13/23 10:20 Pulse Oximetry 98 11/13/23 10:20 Oxygen Delivery Method Room Air 11/13/23 10:20 Vital Signs Temperature 97.4 F L 11/13/23 10:20 Pulse Rate 75 11/13/23 10:20 Respiratory Rate 18 11/13/23 10:20 Blood Pressure 154/75 H 11/13/23 10:20 Pulse Oximetry 98 11/13/23 10:20 Oxygen Delivery Method Room Air 11/13/23 10:20 Temperature 97.4 F L 11/13/23 10:20 Pulse Rate 70 11/13/23 12:40 Respiratory Rate 16 11/13/23 12:40 Blood Pressure 131/64 11/13/23 12:40 Pulse Oximetry 99 11/13/23 12:40 Oxygen Delivery Method Room Air 11/13/23 12:40 Medications Administered Medications: Discontinued Medications Generic Name Dose Route Start Last Admin Trade Name Freq PRN Reason Stop Dose Admin Sodium Chloride 500 mls @ 500 mls/hr 11/13/23 10:47 11/13/23 12:27 0.9 % Sodium Chloride 500 Ml IV 11/13/23 11:46 Infused .Q1H ONE Infusion Medical Decision Making MDM Narrative Medical decision making narrative: Is already maintained on Eliquis with history of cerebral vascular events including bleeds and embolic strokes. History of atrial fibrillation. I would suspect more of a transient global amnesia. Given his fatigue though I would look for further evidence or electrolyte abnormalities. Monitor for rhythm abnormalities. Head CT for possible bleed Study:?CT-Head W/O-11/13/2023 11:23:26 AM Ordering Physician:TARYN Final Report: INDICATION: Abrupt memory loss COMPARISON: None. TECHNIQUE: CT of the head without contrast. Multiplanar reformats are included. FINDINGS: No intracranial hemorrhage. No acute or subacute cortically based infarct. Right inferolateral frontal lobe encephalomalacia. Right occipital lobe encephalomalacia. Small area of encephalomalacia in the right mid cerebellum. Scattered white matter hypodensities may be related to chronic microvascular ischemia. Normal ventricles. No skull fractures. No worrisome focal bone lesion. Tiny joaquim hole right frontal bone. Mild paranasal sinus mucosal thickening with an air-fluid level in the right sphenoid sinus. Consistent with very minimal paranasal sinus disease. The mastoids and middle ears are clear. 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 No acute appearing intracranial findings. Labs overall reassuring. Elevated proBNP. Discussed this case with Stroke Neuro on-call. They are in agreement that most likely represents of transient global amnesia. No further recommendations. Medical Records Medical records reviewed: Yes I reviewed the patient's medical records Lab Data Lab results reviewed: Yes I reviewed the patient's lab results Labs: Lab Results 11/13/23 11/13/23 Range/Units 11:02 11:57 WBC 5.03 (4.50-11.00) K/uL RBC 4.98 (4.30-5.90) m/uL Hgb 12.6 L (13.5-17.5) gm/dL Hct 40.8 (37.0-53.0) % MCV 82 (80-100) fL MCH 25 L (26-34) pg MCHC 31 L (32-36) gm/dL RDW Coeff of Leonie 16.8 H (11.5-15.5) % Plt Count 142 (140-440) K/uL Neut % (Auto) 58.3 (42.0-72.0) % Lymph % (Auto) 21.3 (20-44) % [place] % (Auto) 10.7 (0.0-11.0) % Eos % (Auto) 8.3 H (0.0-7.0) % Baso % (Auto) 1.4 (0.0-3.0) % Neut # (Auto) 2.93 (1.7-7.0) K/uL Lymph # (Auto) 1.07 (0.90-2.90) K/uL [place] # (Auto) 0.50 (0.00-0.90) K/UL Eos # (Auto) 0.40 (0.00-0.50) K/uL Baso # (Auto) 0.07 (0.00-0.30) K/uL Abs Immat Gran (auto) 0.00 (0.00-0.30) K/uL Imm/Tot Granulo (auto) 0.0 % D-Dimer Quant (PE/DVT) 0.65 H (0.00-0.50) ug/ml Sodium 139 (135-149) mmol/L Potassium 4.1 (3.6-5.1) mmol/L Chloride 105 (96-114) mmol/L Carbon Dioxide 28 (20-32) mmol/L Anion Gap 6 L (7-15) mEq/L BUN 20 (7-30) mg/dL Creatinine 0.7 (0.5-1.5) mg/dL Estimated Creat Clear 73.90 Estimated GFR 99 ml/min Glucose 90 (60-115) mg/dL Calcium 9.0 (8.4-10.6) mg/dL Magnesium 2.1 (1.5-2.6) mg/dL Troponin I 0.02 (0.01-0.04) ng/mL C-Reactive Protein < 0.5 L (0.5-1.0) mg/dL NT-Pro-B Natriuret Pep 2050 pg/mL Urine Color Yellow (Yellow) Urine Appearance Clear (Clear) Urine pH 6.0 (5.0-8.5) Ur Specific [place] 1.015 (1.000-1.030) Urine Protein Negative (Negative) Urine Glucose (UA) Negative (Negative) Urine Ketones Negative (Negative) Urine Blood Negative (Negative) Urine Nitrite Negative (Negative) Urine Bilirubin Negative (Negative) Urine Urobilinogen 0.2 (0.2-1.0) Ur Leukocyte Esterase Negative (Negative) Urine RBC 0-2 (0-2) Urine WBC 0-2 (0-5) Ur Squamous Epith Cells Few (None-Few) Urine Bacteria None (None) Discharge Plan Discharge Clinical Impression: Transient global amnesia Patient Disposition: Home w/ Parent or Adult Condition: Stable Additional Instructions: stay well hydrated. Perhaps it is time for follow-up with your neurologist/neurosurgeon. This might facilitate quicker visit. Otherwise I would contact [facility] or [facility] upon recommendation by Dr. Hodge who I consulted today. Considerations would be for an outpatient EEG. Prescriptions: No Action losartan 25 mg tablet 25 mg PO DAILY amiodarone 200 mg tablet 100 mg PO DAILY metoprolol tartrate 25 mg tablet 25 mg PO DAILY Dulera 100-5 mcg/actuation HFA aerosol inhaler 2 puff inhalation BID mirtazapine 30 mg tablet 30 mg PO QPM atorvastatin 40 mg tablet 40 mg PO DAILY Eliquis 5 mg tablet 5 mg PO BID fluticasone furoate-vilanterol [Breo Ellipta] 100-25 mcg/dose blister with device 1 ea inhalation DAILY acetaminophen 325 mg tablet 650 mg PO Q6H PRN sennosides-docusate sodium [Senna-S] 8.6-50 mg tablet 1 - 4 tab-cap PO BID PRN (Reason: constipation) Qty: 60 0RF Rx Instructions: Hold medication if experiencing loose stools. cephalexin 500 mg capsule 500 mg PO TID 7 Days Qty: 21 0RF cephalexin 500 mg capsule 500 mg PO TID 7 Days Qty: 21 0RF cephalexin 500 mg capsule 500 mg PO TID 7 Days Qty: 21 0RF Follow Up/Referrals: Saúl Robison MD [Primary Care Provider] - Stand Alone Forms: [employer] Info Instructions
--- NOTE | 2023-11-13 10:49 | CT_ITS ---
Patient: MINA HARRELL Facility:?[facility] Patient ID:?[id number] Site Patient ID:?[id number]. Site :?[id number] Study:?CT-Head W/O-11/13/2023 11:23:26 AM Ordering Physician:TARYN Final Report: INDICATION: Abrupt memory loss COMPARISON: None. TECHNIQUE: CT of the head without contrast. Multiplanar reformats are included. FINDINGS: No intracranial hemorrhage. No acute or subacute cortically based infarct. Right inferolateral frontal lobe encephalomalacia. Right occipital lobe encephalomalacia. Small area of encephalomalacia in the right mid cerebellum. Scattered white matter hypodensities may be related to chronic microvascular ischemia. Normal ventricles. No skull fractures. No worrisome focal bone lesion. Tiny joaquim hole right frontal bone. Mild paranasal sinus mucosal thickening with an air-fluid level in the right sphenoid sinus. Consistent with very minimal paranasal sinus disease. The mastoids and middle ears are clear. 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 No acute appearing intracranial findings. Please note that all CT scans at this facility use dose modulation, iterative reconstruction, and/or weight-based dosing when appropriate to reduce radiation dose to as low as reasonably achievable. Dictated by Natacha Lira MD @ 11/13/2023 11:36:39 AM Signed by:?Natacha Lira MD @11/13/2023 11:36:39 AM (Electronic Signature)
[2023-11-13] MEDS: 0.9 % SODIUM CHLORIDE 500 ML 500 ML IV (11:12)
[2023-11-13 11:13] LABS: Basophils Absolute Auto 0.07 K/uL (0.00-0.30); Basophils Percent Auto 1.4 % (0.0-3.0); Eosinophils Percent Auto 8.3 % (0.0-7.0); Hematocrit 40.8 % (37.0-53.0); Hemoglobin* 12.6 gm/dL (13.5-17.5); Lymphocytes Absolute Auto 1.07 K/uL (0.90-2.90); Lymphocytes Percent Auto 21.3 % (20-44); Mean Corpuscular HGB Conc 31 gm/dL (32-36); Mean Corpuscular Hemoglobin 25 pg (26-34); Mean Corpuscular Volume 82 fL (80-100); Monocytes Percent Auto 10.7 % (0.0-11.0); Neutrophils Absolute Auto 2.93 K/uL (1.7-7.0); Neutrophils Percent Auto 58.3 % (42.0-72.0); Platelet Count* 142 K/uL (140-440); RDW Coefficient of Variation % 16.8 % (11.5-15.5); Red Blood Count 4.98 m/uL (4.30-5.90); White Blood Count* 5.03 K/uL (4.50-11.00)
[2023-11-13 11:17] LABS: Slide Review Reflex No
[2023-11-13 11:31] LABS: D Dimer Quantitative* 0.65 ug/ml (0.00-0.50)
[2023-11-13 11:42] LABS: C Reactive Protein* < 0.5 mg/dL (0.5-1.0); Chloride* 105 mmol/L (96-114); NT Pro B Type NatriureticPept* 2050 pg/mL; Troponin I* 0.02 ng/mL (0.01-0.04)
[2023-11-13 11:43] LABS: Potassium* 4.1 mmol/L (3.6-5.1); Sodium* 139 mmol/L (135-149)
[2023-11-13 11:45] LABS: Creatinine* 0.7 mg/dL (0.5-1.5); Estimated Glomerular Filt Rate 99 ml/min
[2023-11-13 11:46] LABS: Anion Gap 6 mEq/L (7-15); Blood Urea Nitrogen* 20 mg/dL (7-30); Carbon Dioxide* 28 mmol/L (20-32); Glucose* 90 mg/dL (60-115); Magnesium* 2.1 mg/dL (1.5-2.6)
[2023-11-13 12:09] LABS: Appearance Urine Clear (Clear); Bilirubin Urine Negative (Negative); Blood Urine Negative (Negative); Color Urine Yellow (Yellow); Glucose Urine Negative (Negative); Ketones Urine Negative (Negative); Leukocyte Esterase Urine Negative (Negative); Nitrite Urine Negative (Negative); Protein Urine Negative (Negative); Specific Gravity Urine 1.015 (1.000-1.030); Urobilinogen Urine 0.2 (0.2-1.0)
[2023-11-13 12:18] LABS: RBC Urine 0-2 (0-2); WBC Urine 0-2 (0-5)
[2023-11-13 12:19] LABS: Squamous Epithelial Cell Urine Few (None-Few)
[2023-11-13 12:40] VITALS: BP 131/64; PULSE 70; RESP 16; O2SAT 99
== END 2023-11-13 14:16 | disposition home or self-care (01) ==
PROVIDERS: Emergency Provider Family Medicine; PCP Family Medicine
DX: G45.4 Transient global amnesia (principal)
CPT/HCPCS: 36415; 70450; 80048; 81001; 83735; 83880; 84484; 85025; 85379; 86140; 93005; 99284; 99285; J7030

== ENCOUNTER 2023-11-19 23:36 | Inpatient (IN) | payer MEDICARE, BC, SELFPAY ==
[2023-11-20] VITALS (8 sets, daily range): BP systolic 127–164; BP diastolic 65–86; PULSE 70–88; RESP 16–18; TEMP 36.4–37.1; O2SAT 95–98; BMI 20.9
--- NOTE | 2023-11-20 01:59 | XR_ITS ---
Patient: MINA HARRELL Facility:?[facility] Patient ID:?[id number] Site Patient ID:?[id number]. Site :?[id number] Study:?XRay-Extremity Left 4TH TOE-11/20/2023 3:01:20 AM Ordering Physician:DM Final Report: INDICATION: Foot ulcer/cellulitis. TECHNIQUE: Left 4th toe three views. COMPARISON: None. FINDINGS: Focal areas of decreased bone mineralization in the 4th proximal phalanx, 5th metatarsal head, and 5th proximal phalanx. No cortical erosions identified. No acute fracture or dislocation. Soft tissue swelling. IMPRESSION: Focal areas of decreased bone mineralization in the 4th proximal phalanx, 5th metatarsal head, and 5th proximal phalanx. While findings may relate to osteopenia, early osteolysis is not excluded. If there is ongoing clinical concern for osteomyelitis, recommend further evaluation with MRI foot. Dictated by Jordi Leary MD @ 11/20/2023 3:20:54 AM Signed by:?Jordi Leary MD @11/20/2023 3:20:54 AM (Electronic Signature)
[2023-11-20 02:56] LABS: Basophils Absolute Auto 0.04 K/uL (0.00-0.30); Basophils Percent Auto 0.8 % (0.0-3.0); Eosinophils Percent Auto 11.9 % (0.0-7.0); Hematocrit 40.3 % (37.0-53.0); Hemoglobin* 12.6 gm/dL (13.5-17.5); Immature Granulocytes Abs Auto 0.05 K/uL (0.00-0.30); Lymphocytes Absolute Auto 1.02 K/uL (0.90-2.90); Lymphocytes Percent Auto 20.2 % (20-44); Mean Corpuscular HGB Conc 31 gm/dL (32-36); Mean Corpuscular Hemoglobin 26 pg (26-34); Mean Corpuscular Volume 81 fL (80-100); Monocytes Percent Auto 9.7 % (0.0-11.0); Neutrophils Absolute Auto 2.84 K/uL (1.7-7.0); Neutrophils Percent Auto 56.4 % (42.0-72.0); Platelet Count* 151 K/uL (140-440); RDW Coefficient of Variation % 17.1 % (11.5-15.5); Red Blood Count 4.95 m/uL (4.30-5.90); White Blood Count* 5.04 K/uL (4.50-11.00)
[2023-11-20 02:57] LABS: Lactate* 1.6 mmol/L (0.5-1.9)
[2023-11-20 02:59] LABS: Slide Review Reflex No
[2023-11-20 03:12] LABS: Chloride* 112 mmol/L (96-114); Sodium* 141 mmol/L (135-149)
[2023-11-20 03:13] LABS: Potassium* 4.1 mmol/L (3.6-5.1)
[2023-11-20 03:15] LABS: Alanine Aminotransferase* 18 U/L (4-50); Alkaline Phosphatase* 119 U/L (40-150); Anion Gap 7 mEq/L (7-15); Aspartate Amino Transferase* 23 U/L (12-35); Bilirubin Total* 1.5 mg/dL (0.1-1.5); Blood Urea Nitrogen* 23 mg/dL (7-30); Carbon Dioxide* 22 mmol/L (20-32); Creatinine* 0.6 mg/dL (0.5-1.5); Estimated Glomerular Filt Rate 103 ml/min
[2023-11-20 03:16] LABS: Calcium* 8.8 mg/dL (8.4-10.6); Glucose* 90 mg/dL (60-115)
[2023-11-20 03:18] LABS: C Reactive Protein* 0.7 mg/dL (0.5-1.0)
--- NOTE | 2023-11-20 03:27 | ED_ITS ---
HPI - General Adult General Chief complaint: Skin/Abscess/Foreign Body Stated complaint: cellulitis both feet, getting worse Time Seen by Provider: 11/20/23 01:38 Source: patient Mode of arrival: ambulatory History of Present Illness HPI narrative: 73-year-old male presents to the emergency department with his because of concerns of worsening cellulitis in the foot. Patient originally had athlete's foot type symptoms with itching and irritation between the toes of the 4th and 5th digits of the left foot a starting about a week ago. They tried applying [id number] creams with no improvement, noting redness and swelling, e valuated in urgent care on Sunday. Cultures from a small blister were collected and he was started on doxycycline. Culture is growing Gram-positive cocci, remainder of cultures pending. Redness and swelling are worsening. He now has a blister on the bottom of the foot. There was no specific trauma or injury. He has felt warm and has been having body aches with radiating knee pain. The redness is also some creeping up the leg. He does not have a history of prior venous stasis or known peripheral vascular disease, he is not a smoker. He is anticoagulated on Eliquis because the clot in the heart. He does have a prior history of aortic dissection. Does not believe he has been running any fevers, does not believe he had any trauma or injury that started the infection. Urgent care notes reviewed from 2 days ago. Preliminary Gram stain reviewed, cultures pending. Past medical history is pretty extensive, he has had a prior head bleed and stroke, aortic dissection with surgical repair. Has a clot in his heart, unable to access these records. A liner record is reviewed. He has no longer using the mirtazapine or amiodarone that are listed in our records. Nonsmoker. ROS notable for the generalized, skin and extremity symptoms as described above. Related Data Home Medications Medication Instructions Recorded Confirmed acetaminophen 325 mg tablet 650 mg PO Q6H PRN 06/13/23 11/18/23 apixaban 5 mg tablet (Eliquis) 5 mg PO BID 06/13/23 11/18/23 atorvastatin 40 mg tablet 40 mg PO DAILY 06/13/23 11/18/23 fluticasone furoate 100 1 ea inhalation DAILY 06/13/23 11/18/23 mcg-vilanterol 25 mcg/dose inhalation powder (Breo Ellipta) amiodarone 200 mg tablet 100 mg PO DAILY 07/25/23 11/18/23 losartan 25 mg tablet 25 mg PO DAILY 07/25/23 11/18/23 metoprolol tartrate 25 mg tablet 25 mg PO DAILY 07/25/23 11/18/23 mirtazapine 30 mg tablet 30 mg PO QPM 07/25/23 11/18/23 mometasone-formoterol HFA 100 2 puff inhalation BID 07/25/23 11/18/23 mcg-5 mcg/actuation aerosol inhaler (Dulera) Previous Rx's Medication Instructions Recorded sennosides 8.6 mg-docusate sodium 1 - 4 tab-cap (1 - 4 x 8.6-50 mg) 06/16/23 50 mg tablet (Senna-S) PO BID PRN constipation #60 tabs doxycycline hyclate 100 mg capsule 100 mg PO BID 7 days #14 caps 11/18/23 Allergies Allergy/AdvReac Type Severity Reaction Status Date / Time nitroglycerin Allergy Unknown Verified 11/18/23 08:46 [facility] Medical History Injury of hip, left ?S79.912A - Unspecified injury of left hip, initial encounter (ICD-10) Embolic stroke ?I63.9 - Cerebral infarction, unspecified (ICD-10) NSVT (nonsustained ventricular tachycardia) ?I47.29 - Other ventricular tachycardia (ICD-10) Cerebellar hemorrhage ?I61.4 - Nontraumatic intracerebral hemorrhage in cerebellum (ICD-10) Thrombus of left atrial appendage ?I51.3 - Intracardiac thrombosis, not elsewhere classified (ICD-10) Left bundle branch block ?I44.7 - Left bundle-branch block, unspecified (ICD-10) COPD mixed type ?J44.9 - Chronic obstructive pulmonary disease, unspecified (ICD-10) Hyperlipidemia ?E78.5 - Hyperlipidemia, unspecified (ICD-10) Stroke ?I63.9 - Cerebral infarction, unspecified (ICD-10) Cardiomyopathy ?I42.9 - Cardiomyopathy, unspecified (ICD-10) AA (aortic aneurysm) ?I71.9 - Aortic aneurysm of unspecified site, without rupture (ICD-10) Pacemaker ?Z95.0 - Presence of cardiac pacemaker (ICD-10) Atrial fibrillation ?I48.91 - Unspecified atrial fibrillation (ICD-10) Hypertension ?I10 - Essential (primary) hypertension (ICD-10) Surgical History History of surgery on lower extremity (06/14/23) ?Z98.890 - Other specified postprocedural states (ICD-10) Hx of repair of dissecting thoracic aortic aneurysm, Asa type A ?Z98.890 - Other specified postprocedural states (ICD-10) ?Z86.79 - Personal history of other diseases of the circulatory system (ICD- 10) Social History What is your current living situation?: I presently have a place to live Problems where you live: no known problems Problems where you live details: N/A In the past 12 months, utilities in danger of being shut off: no In past 12 months, lack of transportation kept you from medical appts, meetings, work, or getting things needed for daily living: no In the past 12 mos, have been you worried that your food would run out before you had money to buy more?: never true In the past 12 mos, the food you bought just didn't last and you didn't have money to buy more?: never true Smoking Status: Never smoker Do you use any of these nicotine containing products: None Second hand tobacco smoke exposure: No How often do you have a drink containing alcohol: never How often do you have six or more drinks on one occasion: Never AUDIT-C Alcohol total score: 0 Non-prescribed substance use: denies use How often does anyone, including family, friends and others, physically hurt you : never How often does anyone, including family, friends and others, insult or talk down to you: never How often does anyone, including family, friends and others, threaten you with harm: never How often does anyone, including family, friends and others, scream or curse at you: never service: No Exam Const: Vital Signs, click to edit/add: Vital Signs - 24 hr 11/20/23 00:51 05/21/24 03:44 Temperature 98.0 F Pulse Rate [Left P ulse Oximeter] 85 80 Respiratory Rate 16 16 Blood Pressure [Le ft Upper Arm] 151/81 H 149/65 H Pulse Oximetry 98 96 Oxygen Delivery Me thod Room Air Room Air Documenting provider has reviewed patient's vital signs: yes Common normals: no apparent distress and alert General appearance: cooperative, comfortable and well kempt Other: Does seem to have some mild memory impairment but friendly and cooperative. HENMT: Common normals: normocephalic and oropharynx normal Head and scalp: normocephalic Mouth: oral and palatal mucosa normal Eye: Common normals: conjunctivae normal General eye: normal appearance of both eyes Conjunctiva: conjunctiva(e) normal Neck & C-Spine: Common normals: no lymphadenopathy General: normal visual inspection Resp: Common normals: normal respiratory effort, no use of accessory muscles and clear to auscultation bilaterally Auscultation: clear to auscultation bilaterally Cardio: Common normals: regular rate and regular rhythm Rate: regular rate Rhythm: regular rhythm Other: Systolic murmur, 3 on a 6, mostly early systolic. Does not seem to radiate. GI: Common normals: Normal to inspection, nondistended, normoactive bowel sounds present, soft to palpation, non-tender and no hepatosplenomegaly Palpation: soft and no hepatosplenomegaly Extremity: Other: 1+ pedal edema on the right, up to the l ow ankle. Some mild venous stasis changes to the skin on the right. Left side with 2+ pedal edema, 1+ to the mid ankle. Extensive blistering and cellulitis to 4/5 toes blistering on the top and bottom of the foot, some questionable necrosis around the bottom blister. No obvious open ulceration. Redness creeping up the ankle, especially posteriorly with warmth. Neuro: Sensorium/orientation: alert Motor exam: strength 5/5 throughout and no movement abnormalities noted Psych: Common normals: speech normal Appearance: well kempt Attitude: calm and engaged Speech: normal speech Insight: fair Judgement: fair Skin: Narrative: Cellulitis as described at the left foot, mild venous stasis of the opposite right foot and leg. No other areas of dermatoses. Course Course ED Course: Worsening cellulitis of left lower extremity, worsening blisters with signs of chills and possible sepsis. Will obtain typical labs, blood cultures, obtain x- ray of foot. MRI is not available overnight. Anticipate hospitalization. Reevaluation(s) Time of Reevaluation #1: 04:00 Reevaluation #1: I was able speak with hospitalist. Labs are back and are all actually quite reassuring which is great. X-ray does not show obvious fracture osteomyelitis but bones are quite demineralized he would benefit from an MRI for more definitive management. I have started vancomycin and Zosyn, hospitalist has accepted admission. Vital Signs Vital signs: Initial Vital Signs Temperature 98.0 F 11/20/23 00:51 Temperature Source Temporal Artery Scan 11/20/23 00:51 Pulse Rate 85 11/20/23 00:51 Respiratory Rate 16 11/20/23 00:51 Blood Pressure 151/81 H 11/20/23 00:51 Blood Pressure Mean 104 11/20/23 00:51 Blood Pressure Position Sitting 11/20/23 00:51 Pulse Oximetry 98 11/20/23 00:51 Oxygen Delivery Method Room Air 11/20/23 00:51 Vital Signs Temperature 98.0 F 11/20/23 00:51 Pulse Rate 85 11/20/23 00:51 Respiratory Rate 16 11/20/23 00:51 Blood Pressure 151/81 H 11/20/23 00:51 Pulse Oximetry 98 11/20/23 00:51 Oxygen Delivery Method Room Air 11/20/23 00:51 Temperature 98.0 F 11/20/23 00:51 Pulse Rate 80 11/20/23 03:44 Respiratory Rate 16 11/20/23 03:44 Blood Pressure 149/65 H 11/20/23 03:44 Pulse Oximetry 96 11/20/23 03:44 Oxygen Delivery Method Room Air 11/20/23 03:44 Medications Administered Medications: Generic Name Dose Route Start Last Admin Trade Name Freq PRN Reason Stop Dose Admin Vancomycin HCl 1,500 mg/ 515 mls @ 257.5 mls/hr 11/20/23 03:07 11/20/23 04:01 Sodium Chloride IVPB 11/20/23 05:06 257.5 mls/hr ONCE ONE Administration Protocol Discontinued Medications Generic Name Dose Route Start Last Admin Trade Name Freq PRN Reason Stop Dose Admin Piperacillin Sod/Tazobactam 100 mls @ 200 mls/hr 11/20/23 03:06 05/21/24 04:00 Sod 3.375 gm/ Sodium Chloride IVPB 11/20/23 03:35 Infused ONCE ONE Infusion Medical Decision Making Lab Data Lab results reviewed: Yes I reviewed the patient's lab results Lab results narrative: No significant leukocytosis, elevation of CRP, electrolyte abnormality or renal abnormality. Labs: Lab Results 11/20/23 Range/Units 02:35 WBC 5.04 (4.50-11.00) K/uL RBC 4.95 (4.30-5.90) m/uL Hgb 12.6 L (13.5-17.5) gm/dL Hct 40.3 (37.0-53.0) % MCV 81 (80-100) fL MCH 26 (26-34) pg MCHC 31 L (32-36) gm/dL RDW Coeff of Leonie 17.1 H (11.5-15.5) % Plt Count 151 (140-440) K/uL Neut % (Auto) 56.4 (42.0-72.0) % Lymph % (Auto) 20.2 (20-44) % Benton % (Auto) 9.7 (0.0-11.0) % Eos % (Auto) 11.9 H (0.0-7.0) % Baso % (Auto) 0.8 (0.0-3.0) % Neut # (Auto) 2.84 (1.7-7.0) K/uL Lymph # (Auto) 1.02 (0.90-2.90) K/uL Benton # (Auto) 0.50 (0.00-0.90) K/UL Eos # (Auto) 0.60 H (0.00-0.50) K/uL Baso # (Auto) 0.04 (0.00-0.30) K/uL Abs Immat Gran (auto) 0.05 (0.00-0.30) K/uL Imm/Tot Granulo (auto) 1.0 % Sodium 141 (135-149) mmol/L Potassium 4.1 (3.6-5.1) mmol/L Chloride 112 (96-114) mmol/L Carbon Dioxide 22 (20-32) mmol/L Anion Gap 7 (7-15) mEq/L BUN 23 (7-30) mg/dL Creatinine 0.6 (0.5-1.5) mg/dL Estimated GFR 103 ml/min Glucose 90 (60-115) mg/dL Lactate 1.6 (0.5-1.9) mmol/L Calcium 8.8 (8.4-10.6) mg/dL Total Bilirubin 1.5 (0.1-1.5) mg/dL AST 23 (12-35) U/L ALT 18 (4-50) U/L Alkaline Phosphatase 119 (40-150) U/L C-Reactive Protein 0.7 (0.5-1.0) mg/dL Total Protein 8.0 (6.0-8.3) g/dL Albumin 4.0 (3.3-5.0) g/dL Procalcitonin 0.04 (<0.50) ng/mL Imaging Data foot xr: Attestation: I have reviewed the pertinent imaging results. My impression: Poor bone mineralization but no obvious fracture or signs of osteomyelitis. Radiologist's impression: IMPRESSION: Focal areas of decreased bone mineralization in the 4th proximal phalanx, 5th metatarsal head, and 5th proximal phalanx. While findings may relate to osteopenia, early osteolysis is not excluded. If there is ongoing clinical concern for osteomyelitis, recommend further evaluation with MRI foot. Discharge Plan Discharge Clinical Impression: Cellulitis of foot Patient Disposition: Admitted As Inpatient Condition: Stable
[2023-11-20] MEDS: PIPERACILLIN/TAZOBACTAM 3.375 GM in 0.9 % SODIUM CHLORIDE Mini-bag 100 ML IVPB ×4 (03:29→22:59)
[2023-11-20 03:32] LABS: Procalcitonin* 0.04 ng/mL (<0.50)
--- NOTE | 2023-11-20 04:24 | PC.NURSE ---
Report given to Edita REESE. Pt to [id number]
--- NOTE | 2023-11-20 06:28 | W.PM.TELEH&P ---
Telehealth- H&P: HPI History of Present Illness Date Seen: 11/20/23 Chief complaint: Lower Extremity Cellulitis Narrative: Masood May is seen as an Interactive Telehealth visit. Masood May is a 73 year old male who presented to the emergency room with worsening lower extremity cellulitis. Masood has a significant past medical history of hypertension, previous CVA and TIA, hypertension and atrial fibrillation anticoagulated on Eliquis. Approximately a week ago Masood started having some dry and cracking between his toes, especially on his left foot. He was seen in the urgent care 2 days ago and at that time he was felt to have some early cellulitis and was started on doxycycline. Unfortunately, he continued to have increasing redness and started having blister formation on the bottom and side of his foot and he presented to the emergency room for further evaluation. In the emergency room, he was noted to have increasing cellulitis and pain in his foot and toes. An x-ray was requested and osteomyelitis was unable to be ruled out. He was started on IV vancomycin and IV Zosyn, an MRI was ordered and he is currently being admitted to the medical service for further evaluation and treatment. At the time I am seeing Masood, he does confirm the above history. He states he continues to have some pain at approximately a 5 out of 10 in his left lower extremity. He denies any fever or chills. He denies any nausea. He otherwise denies any other acute complaints or problems at the time I am seeing him. Review of Systems Status of ROS: Reports: 10 or more systems reviewed and unremarkable except as noted in History and below [facility] Medical History Injury of hip, left ?S79.912A - Unspecified injury of left hip, initial encounter (ICD-10) Embolic stroke ?I63.9 - Cerebral infarction, unspecified (ICD-10) NSVT (nonsustained ventricular tachycardia) ?I47.29 - Other ventricular tachycardia (ICD-10) Cerebellar hemorrhage ?I61.4 - Nontraumatic intracerebral hemorrhage in cerebellum (ICD-10) Thrombus of left atrial appendage ?I51.3 - Intracardiac thrombosis, not elsewhere classified (ICD-10) Left bundle branch block ?I44.7 - Left bundle-branch block, unspecified (ICD-10) COPD mixed type ?J44.9 - Chronic obstructive pulmonary disease, unspecified (ICD-10) Hyperlipidemia ?E78.5 - Hyperlipidemia, unspecified (ICD-10) Stroke ?I63.9 - Cerebral infarction, unspecified (ICD-10) Cardiomyopathy ?I42.9 - Cardiomyopathy, unspecified (ICD-10) AA (aortic aneurysm) ?I71.9 - Aortic aneurysm of unspecified site, without rupture (ICD-10) Pacemaker ?Z95.0 - Presence of cardiac pacemaker (ICD-10) Atrial fibrillation ?I48.91 - Unspecified atrial fibrillation (ICD-10) Hypertension ?I10 - Essential (primary) hypertension (ICD-10) Surgical History History of surgery on lower extremity (06/14/23) ?Z98.890 - Other specified postprocedural states (ICD-10) Hx of repair of dissecting thoracic aortic aneurysm, [place] type A ?Z98.890 - Other specified postprocedural states (ICD-10) ?Z86.79 - Personal history of other diseases of the circulatory system (ICD-10) Social History What is your current living situation?: I presently have a place to live Problems where you live: no known problems Problems where you live details: N/A In the past 12 months, utilities in danger of being shut off: no In past 12 months, lack of transportation kept you from medical appts, meetings, work, or getting things needed for daily living: no In the past 12 mos, have been you worried that your food would run out before you had money to buy more?: never true In the past 12 mos, the food you bought just didn't last and you didn't have money to buy more?: never true Smoking Status: Never smoker Do you use any of these nicotine containing products: None Second hand tobacco smoke exposure: No How often do you have a drink containing alcohol: never How often do you have six or more drinks on one occasion: Never AUDIT-C Alcohol total score: 0 Non-prescribed substance use: denies use How often does anyone, including family, friends and others, physically hurt you: never How often does anyone, including family, friends and others, insult or talk down to you: never How often does anyone, including family, friends and others, threaten you with harm: never How often does anyone, including family, friends and others, scream or curse at you: never service: No Meds Home Medications and Allergies Home Medications Medication Instructions Recorded Confirmed Type acetaminophen 325 mg tablet 650 mg PO Q6H PRN 06/13/23 11/18/23 History apixaban 5 mg tablet (Eliquis) 5 mg PO BID 06/13/23 11/18/23 History atorvastatin 40 mg tablet 40 mg PO DAILY 06/13/23 11/18/23 History fluticasone furoate 100 1 ea inhalation DAILY 06/13/23 11/18/23 History mcg-vilanterol 25 mcg/dose inhalation powder (Breo Ellipta) amiodarone 200 mg tablet 100 mg PO DAILY 07/25/23 11/18/23 History losartan 25 mg tablet 25 mg PO DAILY 07/25/23 11/18/23 History metoprolol tartrate 25 mg tablet 25 mg PO DAILY 07/25/23 11/18/23 History mirtazapine 30 mg tablet 30 mg PO QPM 07/25/23 11/18/23 History mometasone-formoterol HFA 100 2 puff inhalation BID 07/25/23 11/18/23 History mcg-5 mcg/actuation aerosol inhaler (Dulera) Allergies Allergy/AdvReac Type Severity Reaction Status Date / Time nitroglycerin Allergy Unknown Verified 11/18/23 08:46 Exam Narrative Exam Narrative: Physical Exam GENERAL: vital signs reviewed, well developed and nourished, in no distress HEENT: pupils are equal round and reactive to light, extraocular movements are grossly within normal limits and oral mucosa is dry. NECK: Supple without lymphadenopathy or thyromegaly according to nursing staff examination observation HEART: Regular rate and rhythm with a to and fro murmur best heard over the aortic area. LUNGS: Clear to auscultation bilaterally with good air movement throughout ABDOMEN: Observation from nurse assisted exam, abdomen appears soft, nontender, and nondistended with Positive bowel sounds noted. EXTREMITIES: strength seems globally decreased but symmetric in bilateral lower extremities. He does have some erythema and blister formation on the plantar aspect of his left foot as well as along the side of the foot. SKIN: Observed warm and dry with color normal NEURO: Alert, awake and oriented ?3. Answers all questions appropriately. No focal neuro deficits are noted. PSYCH: Affect normal Const Vital Signs, click to edit/add: Vital Signs - 24 hr 11/20/23 00:51 11/20/23 03:44 11/20/23 04:20 Temperature 98.0 F Pulse Rate [Left Pulse Oximeter] 85 80 Pulse Rate [Pulse Oximeter] Respiratory Rate 16 16 Blood Pressure [Left Upper Arm] 151/81 H 149/65 H Blood Pressure [Right Arm] Pulse Oximetry 98 96 Oxygen Delivery Method Room Air Room Air Room Air 11/20/23 04:35 Temperature 98.2 F Pulse Rate [Left Pulse Oximeter] Pulse Rate [Pulse Oximeter] 70 Respiratory Rate 18 Blood Pressure [Left Upper Arm] Blood Pressure [Right Arm] 150/68 H Pulse Oximetry 97 Oxygen Delivery Method Room Air Documenting provider has reviewed patient's vital signs: yes Hospitalist - H&P: Result Labs Labs: Short CBC 11/20/23 Range/Units 02:35 WBC 5.04 (4.50-11.00) K/uL Hgb 12.6 L (13.5-17.5) gm/dL Hct 40.3 (37.0-53.0) % Plt Count 151 (140-440) K/uL BMP 11/20/23 02:35 Sodium 141 Potassium 4.1 Chloride 112 Carbon Dioxide 22 BUN 23 Creatinine 0.6 Glucose 90 Calcium 8.8 Liver Function 11/20/23 Range/Units 02:35 Total Bilirubin 1.5 (0.1-1.5) mg/dL AST 23 (12-35) U/L ALT 18 (4-50) U/L Alkaline Phosphatase 119 (40-150) U/L Albumin 4.0 (3.3-5.0) g/dL Assessment and Plan Assessment and plan (1) Cellulitis of foot: Status: Acute Plan Assessment: 1. Pain with increasing erythema in the left lower extremity consistent with left lower extremity cellulitis 2. History of atrial fibrillation with pacemaker placement currently anticoagulated on Eliquis 3. Previous CVA and TIA 4. Hypertension 5. History of repair of dissecting thoracic aortic aneurysm 6. Previous thrombus of the left atrial appendage currently anticoagulated on apixaban 7. History of cerebral hemorrhage Plan: At this time Masood will be admitted to the medical service. He was previously on doxycycline and his cellulitis seem to get slightly worsened. It may be that doxycycline was not a treatment failure, but just did not have enough time to affect the current cellulitis. Nevertheless, he was given IV vancomycin and IV Zosyn in the emergency room and I will continue him on some IV clindamycin for treatment of his cellulitis. He is scheduled for an MRI to make sure he does not have signs of osteomyelitis with the pain that he is currently having. I have reinitiated his Eliquis for his history of atrial fibrillation and previous left atrial appendage and have also reinitiated his blood pressure medications. I have discussed the antibiotic treatment and plan with Masood and he is agreeable to proceed. Will watch his infection closely and will ask the attending in the a.m. to follow-up with his MRI results. I do note that he does have a pacemaker and it sounds like this was placed within the last year and will need to make sure that this is MRI compatible prior to having the procedure. Will continue to follow closely from medical standpoint. Telehealth: Statement Statement Telehealth Visit: Today's History and Physical is provided via interactive telehealth by Toan Ferrera MD.? Patient is located at [facility].? Provider is located at [facility].? Nursing staff assisted with the patient's exam. The visit being done today meets criteria for a telehealth visit and the patient or patient?s parent/guardian is aware the visit is a telehealth visit. Camera Start Time: 06:04 Camera End Time: 06:18
[2023-11-20] MEDS: 0.9 % SODIUM CHLORIDE 1000 ml 1,000 ML 75 ML IV ×2 (06:54→20:07)
[2023-11-20] MEDS: CLINDAMYCIN 900 MG/50 ML-D5W 900 MG/50 ML PIGGYBACK 100 MG IVPB (07:46)
[2023-11-20] MEDS: AMIODARONE 200 MG TABLET 100 MG PO (08:28)
[2023-11-20] MEDS: LOSARTAN POTASSIUM 50 MG TABLET 25 MG PO (08:29)
[2023-11-20] MEDS: APIXABAN 5 MG TABLET PO ×2 (08:29→20:05)
[2023-11-20] MEDS: METOPROLOL TARTRATE 25 MG TABLET PO (08:29)
--- NOTE | 2023-11-20 08:48 | PC.NURSE ---
Patient arrived from ED this morning. Pleasant, alert and oriented. Transferred from ED wheelchair with stand by assist of one. Reported pain in feet rated 3/10. ?
--- NOTE | 2023-11-20 09:44 | CT_ITS ---
Patient: MINA HARRELL Facility:?[facility] Patient ID:?[id number] Site Patient ID:?[id number]. Site :?[id number] Study:?CT-Extremity Left WITH 84CC ISOVUE 370-11/20/2023 10:53:21 AM Ordering Physician:?DR. GALEAS Final Report: INDICATION: Pain and swelling. Concern for osteomyelitis. TECHNIQUE: 84 mL Isovue-370 IV contrast. Imaging from ankle to toes. FINDINGS: Soft tissue edema circumferentially around the ankle and through the dorsal foot without organized fluid. Prominent diffuse near complete fatty atrophy of the intrinsic muscles. No acute fracture or significant bone lesion. Bones are diffusely demineralized. No focal bone erosion appreciated. No tenosynovitis. No soft tissue air. No radiopaque foreign body. Type 2 accessory navicular. IMPRESSION: No CT evidence for osteomyelitis, abscess or septic arthritis. Nonspecific subcutaneous edema. Mild diffuse osteopenia. Likely chronic denervation related fatty replacement of intrinsic muscles. Please note that all CT scans at this facility use dose modulation, iterative reconstruction, and/or weight-based dosing when appropriate to reduce radiation dose to as low as reasonably achievable. Dictated by Margarito Lara MD @ 11/20/2023 11:18:30 AM Signed by:?Margarito Lara MD @11/20/2023 11:18:30 AM (Electronic Signature)
--- NOTE | 2023-11-20 10:36 | P.IMPN_ITS ---
Progress Note: A&P Assessment and plan (1) Cellulitis of foot: Problem details: Without leukocytosis, CRP unremarkable, procalcitonin negative, BC x2 pending, 11/17 wound gram stain growing Gram-positive cocci, wound culture pending Afebrile, vitally stable Plain film of left foot shows Focal areas of decreased bone mineralization in the 4th proximal phalanx, 5th metatarsal head, and 5th proximal phalanx. While findings may relate to osteopenia, early osteolysis is not excluded. If there is ongoing clinical concern for osteomyelitis, recommend further evaluation with MRI foot Unable to obtain MRI at this facility because of pacemaker CT foot ordered Has been on oral doxycycline since 11/17 with worsening infection Will continue with IV zosyn and vancomycin, pharmacy to dose Pain management as needed Recommend follow up with ID after CT obtained. Thus far, adequate response with current antibiotic course Status: Acute (2) Hypertension: Problem details: Continue amiodarone, losartan, metoprolol Status: Acute (3) Atrial fibrillation: Problem details: Status post permanent pacemaker and atrioventricular alexi ablation 04/2023 (Reviewed Dr. Bee's note 04/23/23) History of MAZE and left atrial appendage ligation 2013 (at the time of his septal myectomy and aortic dissection repair) Continue apixaban also metoprolol Status: Acute (4) Pacemaker: Problem details: And atrioventricular alexi ablation April 2023 (Dr. Bee, [facility]) Status: Acute (5) Hyperlipidemia: Problem details: Continue on statin Status: Acute Time Spent With Patient Total time spent: Total time spent caring for the patient today was 45 minutes. This includes time spent for the visit reviewing the chart, time spent during the visit, time spent after the visit and documentation and planning in coordination of care. Subjective Date Seen: 11/20/23 Interval history: Patient reports feeling better this morning. Has gotten a little rest since admission. Notes improvement in left lower leg, less pain, improving erythema. Has remained afebrile. Denies headache or dizziness. Denies chest pain or shortness of breath. No nausea, tolerating orals. Exam Narrative: Exam Narrative: PHYSICAL EXAM General: Pleasant, conversant, NAD HEENT: Normocephalic, atraumatic, sclera white, EOMI, oral mucosa moist Cardiovascular: RRR, S1S2. Pulmonary: CTA bilaterally without rhonchi, rales, expiratory wheezes. No dyspnea Abdominal: Soft, nondistended, NTTP Neurological: Alert, answering questions appropriately, cranial nerves intact, no focal findings Extremities: LLE with edema to hopkins, erythema appears to be receding around ankle distally, bullae noted dorsal/plantar aspect foot, skin intact. RLE with chronic changes, few scabs, no open wounds Skin: Warm, dry. Const: Vital Signs, click to edit/add: Vital Signs - 24 hr 11/20/23 00:51 11/20/23 03:44 11/20/23 04:20 Temperature 98.0 F Pulse Rate [Left P ulse Oximeter] 85 80 Pulse Rate [Pulse Oximeter] Respiratory Rate 16 16 Blood Pressure [Le ft Upper Arm] 151/81 H 149/65 H Blood Pressure [Ri ght Arm] Pulse Oximetry 98 96 Oxygen Delivery Me thod Room Air Room Air Room Air 11/20/23 04:35 11/20/23 07:21 Temperature 98.2 F 97.5 F L Pulse Rate [Left P ulse Oximeter] Pulse Rate [Pulse Oximeter] 70 70 Respiratory Rate 18 16 Blood Pressure [Le ft Upper Arm] Blood Pressure [Ri ght Arm] 150/68 H 147/79 H Pulse Oximetry 97 97 Oxygen Delivery Me thod Room Air Room Air Labs Labs: Laboratory Results - last 24 hr 11/20/23 02:35 WBC 5.04 RBC 4.95 Hgb 12.6 L Hct 40.3 MCV 81 MCH 26 MCHC 31 L RDW Coeff of Leonie 17.1 H Plt Count 151 Neut % (Auto) 56.4 Lymph % (Auto) 20.2 [place] % (Auto) 9.7 Eos % (Auto) 11.9 H Baso % (Auto) 0.8 Neut # (Auto) 2.84 Lymph # (Auto) 1.02 [place] # (Auto) 0.50 Eos # (Auto) 0.60 H Baso # (Auto) 0.04 Abs Immat Gran (auto) 0.05 Imm/Tot Granulo (auto) 1.0 Sodium 141 Potassium 4.1 Chloride 112 Carbon Dioxide 22 Anion Gap 7 BUN 23 Creatinine 0.6 Estimated GFR 103 Glucose 90 Lactate 1.6 Calcium 8.8 Total Bilirubin 1.5 AST 23 ALT 18 Alkaline Phosphatase 119 C-Reactive Protein 0.7 Total Protein 8.0 Albumin 4.0 Procalcitonin 0.04
--- NOTE | 2023-11-20 14:09 | PC.NURSE ---
Pt alert and oriented. Pt had no complaints of pain. Pt up with SBA-1assit. Pt?s LLE outlined again today to show if redness continues to receded. Pt?s at bedside for part of morning.?Pt brought down to CT mid morning.
[2023-11-20] MEDS: MIRTAZAPINE 15 MG TABLET 30 MG PO (18:09)
[2023-11-20] MEDS: Fluticasone Furoate-Vilanterol [Breo Ellipta] 1 EACH IH (20:06)
--- NOTE | 2023-11-20 23:31 | PC.NURSE ---
End of Shift: Patient pleasant and cooperative. Afebrile. Denies pain. Up to bathroom and chair with SBA and cane. Walking in hallway x2 this shift. Left lower extremity redness/warmth within outline, elevated. Tolerating regular diet with no nausea. Had an episode of confusion upon waking up from sleeping, unsure of place/situation. Able to be redirected and A&O the remainder of the shift.
[2023-11-21] VITALS (8 sets, daily range): BP systolic 147–161; BP diastolic 65–82; PULSE 69–97; RESP 16–18; TEMP 36.5–36.9; O2SAT 95–98
[2023-11-21] MEDS: PIPERACILLIN/TAZOBACTAM 3.375 GM in 0.9 % SODIUM CHLORIDE Mini-bag 100 ML IVPB ×4 (04:36→22:57)
[2023-11-21 06:19] LABS: Hematocrit 38.3 % (37.0-53.0); Hemoglobin* 11.8 gm/dL (13.5-17.5); Mean Corpuscular HGB Conc 31 gm/dL (32-36); Mean Corpuscular Hemoglobin 25 pg (26-34); Mean Corpuscular Volume 82 fL (80-100); Platelet Count* 129 K/uL (140-440); Red Blood Count 4.68 m/uL (4.30-5.90); White Blood Count* 5.23 K/uL (4.50-11.00)
[2023-11-21 06:30] LABS: Chloride* 115 mmol/L (96-114); Potassium* 3.8 mmol/L (3.6-5.1); Sodium* 141 mmol/L (135-149)
[2023-11-21 06:32] LABS: Slide Review Reflex No
[2023-11-21 06:33] LABS: Anion Gap 2 mEq/L (7-15); Carbon Dioxide* 24 mmol/L (20-32); Creatinine* 0.7 mg/dL (0.5-1.5); Est. Creatinine Clearance* 75.88; Estimated Glomerular Filt Rate 99 ml/min
[2023-11-21 06:34] LABS: Blood Urea Nitrogen* 18 mg/dL (7-30); Calcium* 8.5 mg/dL (8.4-10.6); Glucose* 89 mg/dL (60-115)
[2023-11-21 06:49] LABS: C Reactive Protein* < 0.5 mg/dL (0.5-1.0)
--- NOTE | 2023-11-21 06:59 | PC.NURSE ---
Pt alert and oriented x3 but has periods of confusion upon waking out of sleep. Afebrile. Pt reports 3/10 pain in left leg, pain medications offered, pt refused stating ?Its fine right now, I just want to sleep.? The redness on pt?s left foot has not exceeded outline, foot elevated. Pt is up SBA to bathroom, voiding, and tolerating a regular diet. Pt slept throughout most of night. ?
--- NOTE | 2023-11-21 08:54 | PM.IMPN1 ---
Progress Note: A&P Assessment and plan (1) Cellulitis of foot: Problem details: - no leukocytosis, CRP unremarkable, procalcitonin negative, BC x2 pending, 11/17 wound gram stain growing Gram-positive cocci, culture pending - afebrile, VS are stable - CT of foot performed 11/19 without evidence of osteomyelitis - on Vancomycin and Zosyn (11/18) Status: Acute (2) Hypertension: Problem details: - continue amiodarone, losartan, metoprolol, currently age-appropriate control Status: Acute (3) Atrial fibrillation: Problem details: - s/p permanent pacemaker and atrioventricular alexi ablation 04/2023 (Reviewed Dr. Bee's note 04/23/23) - h/o MAZE and left atrial appendage ligation 2013 (at the time of his septal myectomy and aortic dissection repair) - continue apixaban and metoprolol Status: Acute (4) Pacemaker: Problem details: - atrioventricular alexi ablation April 2023 (Dr. Bee, [facility]) Status: Acute (5) Hyperlipidemia: Problem details: - continue statin Status: Acute Plan - per above - Eliquis for ppx - possibly home tomorrow pending wound culture results - updated at bedside, questions answered Subjective Date Seen: 11/21/23 Interval history: Eligio continues to feel little better each day, tolerating IV antibiotics. Blood cultures remain negative, wound cultures growing GPC. White blood count remains normal, he is afebrile. Working with therapies for ambulation. History of confusion upon awakening, wondering about restful night VS. Discussed wound care with patient and ; given vesicular lesions, Adaptic dressing + Kerlix and Carlos wrap recommended. This is to be changed daily with wound care clinic follow-up next week. Exam Narrative: Exam Narrative: GEN: Alert and oriented, sitting comfortably in bed and eating breakfast HEENT: EOMIs bilaterally, no scleral icterus CV: RRR, No concerning murmurs R: LCTA bilaterally without concerning wheezing, air movement adequate Skin: Erythema of RLE has not extended past outline; + vesicular lesion at base of 3rd/4th toe, multiple vesicular lesions on top of foot, none are draining Neuro: No focal deficits Psych: Appropriately interactive Const: Vital Signs, click to edit/add: Vital Signs - 24 hr 11/20/23 10:56 11/20/23 15:00 11/20/23 15:00 Temperature 97.8 F 97.6 F Pulse Rate [Pulse Oximeter] 70 76 76 Respiratory Rate 18 16 Blood Pressure [Le ft Arm] 127/70 Blood Pressure [Ri ght Arm] 142/67 H Pulse Oximetry 96 96 Oxygen Delivery Me thod Room Air Room Air 11/20/23 19:00 11/20/23 23:10 11/20/23 23:10 Temperature 97.9 F 98.8 F Pulse Rate [Pulse Oximeter] 88 88 Respiratory Rate 18 16 16 Blood Pressure [Le ft Arm] 164/86 H Blood Pressure [Ri ght Arm] 153/74 H Pulse Oximetry 95 96 Oxygen Delivery Me thod Room Air Room Air 11/21/23 01:25 11/21/23 07:00 Temperature 97.7 F 98.0 F Pulse Rate [Pulse Oximeter] 74 69 Respiratory Rate 18 16 Blood Pressure [Le ft Arm] Blood Pressure [Ri ght Arm] 158/74 H 147/69 H Pulse Oximetry 96 96 Oxygen Delivery Me thod Room Air Room Air Labs Labs: Laboratory Results - last 24 hr 11/21/23 05:43 WBC 5.23 RBC 4.68 Hgb 11.8 L Hct 38.3 MCV 82 MCH 25 L MCHC 31 L Plt Count 129 L Sodium 141 Potassium 3.8 Chloride 115 H Carbon Dioxide 24 Anion Gap 2 L BUN 18 Creatinine 0.7 Estimated Creat Clear 75.88 Estimated GFR 99 Glucose 89 Calcium 8.5 C-Reactive Protein < 0.5 L
[2023-11-21] MEDS: LOSARTAN POTASSIUM 50 MG TABLET 25 MG PO (09:14)
[2023-11-21] MEDS: APIXABAN 5 MG TABLET PO ×2 (09:15→21:14)
[2023-11-21] MEDS: METOPROLOL TARTRATE 25 MG TABLET PO (09:15)
--- NOTE | 2023-11-21 15:09 | PC.NURSE ---
End of Shift: The patient is pleasant and cooperative throughout the day. Alert and orientated, although quite forgetful at times. Alarms remain on. SBA w/ cane to the restroom. WOC care for bilateral lower feet was completed, the patient tolerated this well. The patient rated his L ankle/foot pain 3-5/10 throughout the day but denied Tylenol, which was offered throughout the day. BLE were elevated on pillows when in bed. Poor fluid intake... needs lots of encouragement. Call light within reach. Racquel is going to be here tomorrow morning for when the doctor makes rounds and when WOC care is completed. Maryan REESE BSN
[2023-11-21] MEDS: SODIUM CHLORIDE 0.9 % (FLUSH) 10 ML SYRINGE 5 ML IVF ×3 (17:15→22:57)
[2023-11-21] MEDS: MIRTAZAPINE 15 MG TABLET 30 MG PO (18:02)
--- NOTE | 2023-11-21 19:42 | PC.NURSE ---
(Shift 15-19) Pt alert and oriented. Pt up with SBA. Pt had no complaints of pain. at bedside.
[2023-11-22 02:00] VITALS: RESP 16
[2023-11-22] MEDS: PIPERACILLIN/TAZOBACTAM 3.375 GM in 0.9 % SODIUM CHLORIDE Mini-bag 100 ML IVPB (04:47)
[2023-11-22] MEDS: SODIUM CHLORIDE 0.9 % (FLUSH) 10 ML SYRINGE 5 ML IVF (04:47)
[2023-11-22 06:00] VITALS: RESP 16
--- NOTE | 2023-11-22 06:09 | PC.NURSE ---
Pt alert and oriented x3. Afebrile. Pt denies pain, SOB, N/V, and pain. The redness on pt?s left foot has not exceeded outline and is receding. Pt is up SBA with cane to bathroom, voiding, and tolerating a regular diet. Pt slept intermittently throughout most of night
[2023-11-22 06:38] LABS: Basophils Absolute Auto 0.06 K/uL (0.00-0.30); Basophils Percent Auto 0.8 % (0.0-3.0); Eosinophils Percent Auto 10.3 % (0.0-7.0); Hematocrit 39.8 % (37.0-53.0); Hemoglobin* 12.4 gm/dL (13.5-17.5); Lymphocytes Percent Auto 13.4 % (20-44); Mean Corpuscular HGB Conc 31 gm/dL (32-36); Mean Corpuscular Hemoglobin 25 pg (26-34); Mean Corpuscular Volume 81 fL (80-100); Monocytes Percent Auto 10.1 % (0.0-11.0); Neutrophils Absolute Auto 4.75 K/uL (1.7-7.0); Neutrophils Percent Auto 65.4 % (42.0-72.0); Platelet Count* 147 K/uL (140-440); RDW Coefficient of Variation % 17.4 % (11.5-15.5); Red Blood Count 4.89 m/uL (4.30-5.90); White Blood Count* 7.26 K/uL (4.50-11.00)
[2023-11-22 06:51] LABS: Chloride* 113 mmol/L (96-114); Potassium* 4.1 mmol/L (3.6-5.1); Sodium* 140 mmol/L (135-149)
[2023-11-22 06:53] LABS: Creatinine* 0.8 mg/dL (0.5-1.5); Est. Creatinine Clearance* 77.84; Estimated Glomerular Filt Rate 95 ml/min
[2023-11-22 06:54] LABS: Anion Gap 3 mEq/L (7-15); Blood Urea Nitrogen* 16 mg/dL (7-30); Carbon Dioxide* 24 mmol/L (20-32); Glucose* 92 mg/dL (60-115)
[2023-11-22 06:55] LABS: Calcium* 8.6 mg/dL (8.4-10.6)
[2023-11-22 06:57] LABS: C Reactive Protein* 0.7 mg/dL (0.5-1.0)
[2023-11-22 07:00] VITALS: BP 140/68; PULSE 71; RESP 16; TEMP 37; O2SAT 94
[2023-11-22 07:08] LABS: Slide Review Reflex No
[2023-11-22] MEDS: APIXABAN 5 MG TABLET PO (08:45)
[2023-11-22] MEDS: LOSARTAN POTASSIUM 50 MG TABLET 25 MG PO (08:45)
[2023-11-22] MEDS: METOPROLOL TARTRATE 25 MG TABLET PO (08:45)
[2023-11-22 08:46] VITALS: BP 140/68; PULSE 73; RESP 16; TEMP 37; O2SAT 97
--- NOTE | 2023-11-22 09:46 | P.DS_ITS ---
DS: Providers Provider Date Seen: 11/22/23 Date of admission: 11/20/23 05:04 Primary care physician: Saúl Robison MD Admitting Clinician: Rhiannon Townsend MD Consults: PT, OT, Wound Care Attending Physician on discharge: tSacia Jones MD Date of Discharge: 11/22/23 DS: Diagnosis Discharge Diagnosis (1) Cellulitis of foot: Status: Acute Problem details: - no leukocytosis, CRP unremarkable, procalcitonin negative, BC x2 negative, 11/17 wound gram stain + for coag - staph - afebrile, stable VS throughout stay - CT of foot performed 11/19 without evidence of osteomyelitis - treated with Vancomycin and Zosyn (11/18) during stay, home on oral Cephalexin and wound care clinic f/u (2) Hypertension: Status: Acute Problem details: - continue amiodarone, losartan, metoprolol, currently age-appropriate control (3) Atrial fibrillation: Status: Acute Problem details: - s/p permanent pacemaker and atrioventricular alexi ablation 04/2023 (Reviewed Dr. Bee's note 04/23/23) - h/o MAZE and left atrial appendage ligation 2013 (at the time of his septal myectomy and aortic dissection repair) - continue apixaban and metoprolol (4) Pacemaker: Status: Acute Problem details: - atrioventricular alexi ablation April 2023 (Dr. Bee, [facility]) (5) Hyperlipidemia: Status: Acute Problem details: - continue statin DS: Summary Hospital Course Hospital Course: Eligio was admitted to the hospital on 11/20/2023 for left foot cellulitis; initially treated with Doxycycline as an outpatient and failed this course of antibiotic. On admission, wound culture obtained from a vesicular lesion on the bottom of foot, + coag-negative staph noted. Blood cultures remain negative during stay. He was treated with IV vancomycin and Zosyn. White blood count, procalcitonin, vital signs remained stable during stay. Given age, comorbidities, high risk status: CT obtained to rule out osteomyelitis (MRI contraindicated given presence of pacemaker), no concerning findings noted. Patient improved and medically appropriate for discharge home on oral cephalexin on 11/22/2023. He will see wound clinic next week for follow-up. Status at Discharge Functional status at discharge: uses cane/walker Time Spent with Patient Time attestation: Total time spent providing and/or coordinating discharge services: Time spent: Greater than 30 minutes Specific discharge activities: Medication reconciliation, Education, chart review Exam Narrative: Exam Narrative: GEN: Alert and oriented, sitting comfortably in bed and nontoxic in appearance HEENT: EOMIs bilaterally, no scleral icterus CV: RRR, soft blowing systolic murmur heard best at right sternal border without radiation R: LCTA bilaterally without concerning wheezing Skin: LLE has improved erythema with no extension past outline. Vesicular lesions are all smaller in size (1 noted on bottom of foot, scattered lesions on top of foot). Normal capillary refill Neuro: Nonfocal Psych: Appropriate Const: Vital Signs, click to edit/add: Vital Signs - 24 hr 11/21/23 11:00 11/21/23 15:26 11/21/23 19:31 Temperature 97.9 F 98.2 F Pulse Rate [Pulse Oximeter] 73 97 71 Respiratory Rate 16 18 16 Blood Pressure [Le ft Arm] 159/82 H Blood Pressure [Ri ght Arm] 149/65 H 155/69 H Pulse Oximetry 97 98 95 Oxygen Delivery Me thod Room Air Room Air Room Air 11/21/23 21:17 11/21/23 22:31 11/21/23 22:59 Temperature 98.5 F Pulse Rate [Pulse Oximeter] 84 Respiratory Rate 16 16 16 Blood Pressure [Le ft Arm] Blood Pressure [Ri ght Arm] 161/82 H Pulse Oximetry 96 Oxygen Delivery Me thod Room Air 11/22/23 02:00 11/22/23 06:00 11/22/23 07:00 Temperature 98.6 F Pulse Rate [Pulse Oximeter] 71 Respiratory Rate 16 16 16 Blood Pressure [Le ft Arm] Blood Pressure [Ri ght Arm] 140/68 H Pulse Oximetry 94 Oxygen Delivery Me thod Room Air 11/22/23 08:46 Temperature 98.6 F Pulse Rate [Pulse Oximeter] 73 Respiratory Rate 16 Blood Pressure [Le ft Arm] Blood Pressure [Ri ght Arm] 140/68 H Pulse Oximetry 97 Oxygen Delivery Me thod Room Air DS: Data Data Completed and Pending Completed studies during hospitalization: Procedures Fluoroscopy of Left Femur (06/13/23) Introduction of Other Gas into Respiratory Tract, Via Natural or Artificial Opening (06/13/23) Reposition Left Upper Femur with Intramedullary Internal Fixation Device, Open Approach (06/13/23) Labs on day of discharge: Labs from last 24 hours 11/22/23 06:07 WBC 7.26 RBC 4.89 Hgb 12.4 L Hct 39.8 MCV 81 MCH 25 L MCHC 31 L RDW Coeff of Leonie 17.4 H Plt Count 147 Neut % (Auto) 65.4 Lymph % (Auto) 13.4 L [place] % (Auto) 10.1 Eos % (Auto) 10.3 H Baso % (Auto) 0.8 Neut # (Auto) 4.75 Lymph # (Auto) 1.00 [place] # (Auto) 0.70 Eos # (Auto) 0.70 H Baso # (Auto) 0.06 Abs Immat Gran (auto) 0.00 Imm/Tot Granulo (auto) 0.0 Sodium 140 Potassium 4.1 Chloride 113 Carbon Dioxide 24 Anion Gap 3 L BUN 16 Creatinine 0.8 Estimated Creat Clear 77.84 Estimated GFR 95 Glucose 92 Calcium 8.6 C-Reactive Protein 0.7 Preliminary micro results at discharge 11/20/23 02:30 Blood Culture - Preliminary Blood NO GROWTH AFTER 48 HOURS 11/20/23 02:35 Blood Culture - Preliminary Blood NO GROWTH AFTER 48 HOURS Discharge Plan Discharge Disposition: Home, Self-Care Date of Admission: 11/20/23 05:04 Attending Provider on Discharge: Stacia Jones Consulting Providers: Floresita Pompa; Radha Morrison; Yevgeniy Padgett Primary Care Provider: Saúl Robison Condition: Stable Anticipated Discharge Date/Time: 11/22/23 09:42 Discharge Medications: New cephalexin 500 mg capsule 500 mg PO TID 7 Days Qty: 21 0RF Continued losartan 25 mg tablet 25 mg PO DAILY amiodarone 200 mg tablet 100 mg PO DAILY metoprolol tartrate 25 mg tablet 25 mg PO DAILY Dulera 100-5 mcg/actuation HFA aerosol inhaler 2 puff inhalation BID mirtazapine 30 mg tablet 30 mg PO QPM atorvastatin 40 mg tablet 40 mg PO DAILY Eliquis 5 mg tablet 5 mg PO BID fluticasone furoate-vilanterol [Breo Ellipta] 100-25 mcg/dose blister with device 1 ea inhalation DAILY acetaminophen 325 mg tablet 650 mg PO Q6H PRN sennosides-docusate sodium [Senna-S] 8.6-50 mg tablet 1 - 4 tab-cap PO BID PRN (Reason: constipation) Qty: 60 0RF Rx Instructions: Hold medication if experiencing loose stools. Discontinued doxycycline hyclate 100 mg capsule 100 mg PO BID 7 Days Qty: 14 0RF Discharge Orders: Discharge Order (Routine); Ordered 11/22/23 Ordered By: Stacia Jones Patient Education: Cephalexin (By mouth), Cellulitis (GEN) Additional Instructions: Antibiotics at [facility] - take with meals, continue daily Kombucha. No changes to other home medications. Dressing changes once daily. Use Adaptic first, covered with Kerlix and an DAHIANA bandage. See [facility] on 11/28/23 at 8:00am. [address] [place], [place] [phone] Activity Level: Activity as Tolerated Discharge Diet: Regular Follow Up Appointments: Saúl Robison MD [Primary Care Provider] - Floresita Pompa APRN [Nurse Practitioner] - None () Forms: [facility] Info Instructions
--- NOTE | 2023-11-22 13:34 | PC.NURSE ---
Discharge Note: The patient discharged home with his . Prior to discharge the patient's was educated/visualized completion on WOC care for BLE. All supplies were sent with them for use that will be used daily for the dressing changes prior to WOC f/u mid next week. Educated the patient regarding elevation above the heart to decrease swelling as well as completing the full course of antibiotics to reduce chances of becoming resistant to the bacteria from his infection. Maryan REESE BSN
== END 2023-11-22 13:17 | disposition home or self-care (01) | DRG 603 ==
LOC: ED 11-20 03:44 → MEDSURG 11-20 05:05
PROVIDERS: Family Medicine; Physician Assistant; Admitting Provider Family Medicine; Emergency Provider Family Medicine; PCP Family Medicine; Visit Provider Family Medicine
DX: L03.116 Cellulitis of left lower limb (principal); I42.9 Cardiomyopathy, unspecified; L03.115 Cellulitis of right lower limb; I48.91 Unspecified atrial fibrillation; Z95.0 Presence of cardiac pacemaker; Z79.01 Long term (current) use of anticoagulants; B35.3 Tinea pedis; I73.9 Peripheral vascular disease, unspecified; I44.7 Left bundle-branch block, unspecified; J44.9 Chronic obstructive pulmonary disease, unspecified; I10 Essential (primary) hypertension; I71.9 Aortic aneurysm of unspecified site, without rupture; Z86.73 Personal history of transient ischemic attack (TIA), and cerebral infarction without residual deficits; E78.5 Hyperlipidemia, unspecified
CPT/HCPCS: 36415; 73660; 73701; 80048; 80053; 83605; 84145; 85025; 85027; 86140; 87040; 87070; 87205; 97112; 97116; 97161; 97165; 97535; 99284; 99285; A9270; J0736; J2543; J3370; J7030; J7050; Q9967

== ENCOUNTER 2023-11-28 07:59 | Outpatient (CLI) | payer MEDICARE, BC, SELFPAY | END 2023-11-28 08:00 | disposition home or self-care (01) | LOC: WOUND 08:00 | PROVIDERS: PCP Family Medicine; Visit Provider Surgery | DX: I87.313 Chronic venous hypertension (idiopathic) with ulcer of bilateral lower extremity (principal); I87.2 Venous insufficiency (chronic) (peripheral); L97.829 Non-pressure chronic ulcer of other part of left lower leg with unspecified severity; L97.819 Non-pressure chronic ulcer of other part of right lower leg with unspecified severity; S91.105A Unspecified open wound of left lesser toe(s) without damage to nail, initial encounter | CPT/HCPCS: 11104; 88305; G0463 ==

== ENCOUNTER 2023-11-30 23:12 | Emergency (ER) | payer MEDICARE, BC, SELFPAY ==
[2023-11-30 23:19] VITALS: BP 149/72; PULSE 75; RESP 18; TEMP 36.7; O2SAT 96; BMI 20.8
--- NOTE | 2023-11-30 23:45 | ED_ITS ---
HPI - General Adult General Chief complaint: Extremity Pain/Injury, Lower Stated complaint: complications from cellulitis Time Seen by Provider: 11/30/23 23:35 History of Present Illness HPI narrative: This 73-year-old male comes in with pain in a chronic wound in his right lower leg. The pain is worsened recently. This wound has been present for months or perhaps years and recently he had a biopsy done. There was some persistent bleeding from this wound so it has been covered with a gauze and Coban dressing. The patient states that the pain is worse in the last day or so. He has not had any fevers. The gauze is removed and there is some old blood that is draining but no active bleeding otherwise. There is increased erythema around this wound that is approximately he has 6 cm in diameter. There is no further extension of the erythema beyond this. Related Data Home Medications ?Medication ?Instructions ?Recorded ?Confirmed acetaminophen 325 mg tablet 650 mg PO Q6H PRN 06/13/23 11/18/23 apixaban 5 mg tablet (Eliquis) 5 mg PO BID 06/13/23 11/18/23 atorvastatin 40 mg tablet 40 mg PO DAILY 06/13/23 11/18/23 fluticasone furoate 100 1 ea inhalation DAILY 06/13/23 11/18/23 mcg-vilanterol 25 mcg/dose inhalation powder (Breo Ellipta) amiodarone 200 mg tablet 100 mg PO DAILY 07/25/23 11/18/23 losartan 25 mg tablet 25 mg PO DAILY 07/25/23 11/18/23 metoprolol tartrate 25 mg tablet 25 mg PO DAILY 07/25/23 11/18/23 mirtazapine 30 mg tablet 30 mg PO QPM 07/25/23 11/18/23 mometasone-formoterol HFA 100 2 puff inhalation BID 07/25/23 11/18/23 mcg-5 mcg/actuation aerosol inhaler (Dulera) Previous Rx's ?Medication ?Instructions ?Recorded sennosides 8.6 mg-docusate sodium 1 - 4 tab-cap (1 - 4 x 8.6-50 mg) 06/16/23 50 mg tablet (Senna-S) PO BID PRN constipation #60 tabs cephalexin 500 mg capsule 500 mg PO TID 7 days #21 caps 11/22/23 cephalexin 500 mg capsule 500 mg PO TID 7 days #21 caps 11/30/23 Allergies Allergy/AdvReac Type Severity Reaction Status Date / Time nitroglycerin Allergy Unknown Verified 11/20/23 11:21 Review of Systems Status of ROS: Reports: 10 or more systems reviewed and unremarkable except as noted in History and below Narrative: Constitutional: No fevers, no weight gain or loss. Eyes: No discharge. No vision changes. HENT: No congestion, no sore throat, no ear pain. Cardiovascular: No chest pain, no palpitations. Respiratory: No shortness of breath, no wheezes, no cough. Gastrointestinal: No abdominal pain, no vomiting, no diarrhea. Genitourinary: No dysuria, no hematuria. Musculoskeletal: Normal range of motion. Chronic wound on the right anterior lower leg. Skin: No rashes, no pruritis. Neurological: No dizziness, weakness, sensory change, speech change. Endo/Heme/Allergies: No bruising or bleeding. No polydipsia. Pysch: no suicidality, no anxiety, no insomnia. All other systems reviewed and are negative. [facility] Medical History (Updated 11/30/23 @ 23:52 by Minh Mahoney MD) Hyperlipidemia ?E78.5 - Hyperlipidemia, unspecified (ICD-10) Pacemaker ?Z95.0 - Presence of cardiac pacemaker (ICD-10) Atrial fibrillation ?I48.91 - Unspecified atrial fibrillation (ICD-10) Injury of hip, left ?S79.912A - Unspecified injury of left hip, initial encounter (ICD-10) Embolic stroke ?I63.9 - Cerebral infarction, unspecified (ICD-10) NSVT (nonsustained ventricular tachycardia) ?I47.29 - Other ventricular tachycardia (ICD-10) Cerebellar hemorrhage ?I61.4 - Nontraumatic intracerebral hemorrhage in cerebellum (ICD-10) Thrombus of left atrial appendage ?I51.3 - Intracardiac thrombosis, not elsewhere classified (ICD-10) Left bundle branch block ?I44.7 - Left bundle-branch block, unspecified (ICD-10) COPD mixed type ?J44.9 - Chronic obstructive pulmonary disease, unspecified (ICD-10) Stroke ?I63.9 - Cerebral infarction, unspecified (ICD-10) Cardiomyopathy ?I42.9 - Cardiomyopathy, unspecified (ICD-10) AA (aortic aneurysm) ?I71.9 - Aortic aneurysm of unspecified site, without rupture (ICD-10) Hypertension ?I10 - Essential (primary) hypertension (ICD-10) Surgical History History of surgery on lower extremity (06/14/23) ?Z98.890 - Other specified postprocedural states (ICD-10) Hx of repair of dissecting thoracic aortic aneurysm, [place] type A ?Z98.890 - Other specified postprocedural states (ICD-10) ?Z86.79 - Personal history of other diseases of the circulatory system (ICD- 10) Social History What is your current living situation?: I presently have a place to live Problems where you live: no known problems Problems where you live details: N/A In the past 12 months, utilities in danger of being shut off: no In past 12 months, lack of transportation kept you from medical appts, meetings, work, or getting things needed for daily living: no In the past 12 mos, have been you worried that your food would run out before you had money to buy more?: never true In the past 12 mos, the food you bought just didn't last and you didn't have money to buy more?: never true Smoking Status: Never smoker Do you use any of these nicotine containing products: None Second hand tobacco smoke exposure: No How often do you have a drink containing alcohol: never How often do you have six or more drinks on one occasion: Never AUDIT-C Alcohol total score: 0 Non-prescribed substance use: denies use How often does anyone, including family, friends and others, physically hurt you : never How often does anyone, including family, friends and others, insult or talk down to you: never How often does anyone, including family, friends and others, threaten you with harm: never How often does anyone, including family, friends and others, scream or curse at you: never service: No Exam Narrative: Exam Narrative: Constitutional: Well-developed, well-nourished, no acute distress. HEENT: Normocephalic, atraumatic. Neck: Normal range of motion. Nontender. Supple. Heart: Intact distal pulses. Lungs: No chest discomfort. No wheezes, rhonchi, or rales. Abdomen: Nontender. Back: Normal range of motion. Extremities: Normal range of motion. The right lower extremity has a chronic wound on the anterior aspect of the area about [address] ankle up to the knee. There is a central area of drainage of dark red blood but no active bleeding. This was an area where it looks like there was a punch biopsy done. There is erythema surrounding the chronic wound extending about 6 cm meters and diameter. No purulent drainage. Skin: Intact. No rash. Warm. No erythema or pallor. Neurologic: No altered sensation. No weakness. Alert and oriented. Psychiatric: No suicidality. No anxiety or depression. No insomnia. Nursing notes and vitals signs are reviewed. Const: Vital Signs, click to edit/add: Vital Signs - 24 hr 11/30/23 23:19 Temperature 98.0 F Pulse Rate [Left P ulse Oximeter] 75 Respiratory Rate 18 Blood Pressure [Ri ght Upper Arm] 149/72 H Pulse Oximetry 96 Oxygen Delivery Me thod Room Air Course Vital Signs Vital signs: Initial Vital Signs Temperature 98.0 F 11/30/23 23:19 Temperature Source Temporal Artery Scan 11/30/23 23:19 Pulse Rate 75 11/30/23 23:19 Pulse Rhythm Regular 11/30/23 23:19 Respiratory Rate 18 11/30/23 23:19 Blood Pressure 149/72 H 11/30/23 23:19 Blood Pressure Mean 97 11/30/23 23:19 Blood Pressure Position Sitting 11/30/23 23:19 Pulse Oximetry 96 11/30/23 23:19 Oxygen Delivery Method Room Air 11/30/23 23:19 Vital Signs Temperature 98.0 F 11/30/23 23:19 Pulse Rate 75 11/30/23 23:19 Respiratory Rate 18 11/30/23 23:19 Blood Pressure 149/72 H 11/30/23 23:19 Pulse Oximetry 96 11/30/23 23:19 Oxygen Delivery Method Room Air 11/30/23 23:19 Temperature 98.0 F 11/30/23 23:19 Pulse Rate 75 11/30/23 23:19 Respiratory Rate 18 11/30/23 23:19 Blood Pressure 149/72 H 11/30/23 23:19 Pulse Oximetry 96 11/30/23 23:19 Oxygen Delivery Method Room Air 11/30/23 23:19 Medical Decision Making MDM Narrative Medical decision making narrative: This patient comes in with increased pain in a chronic wound in his right lower extremity as described above. The patient's is concerned that this can spread really fast and become a big problem because has had symptoms like this in the past. The patient arrives here with normal vital signs and does not appear to be in acute distress. I did remove the gauze from the wound and expressed some small amount of dark red blood. There is no active bleeding or purulent discharge. There is erythema around the wound which the patient's states is increased compared to how it appeared 3 or 4 days ago. An IV was established where the patient did have labs drawn. He did receive a g of Rocephin in the IV. Lab results are pending at the end of my shift. The overnight physician will look after results and likely be able to discharge the patient home on Keflex. Discharge Plan Discharge Clinical Impression: Cellulitis Patient Disposition: Home w/ Parent or Adult Condition: Stable Additional Instructions: Take medication as prescribed. Follow up with wound clinic as scheduled or return if worsening symptoms occur such as fevers or worsening pain. Prescriptions: New cephalexin 500 mg capsule 500 mg PO TID 7 Days Qty: 21 0RF No Action losartan 25 mg tablet 25 mg PO DAILY amiodarone 200 mg tablet 100 mg PO DAILY metoprolol tartrate 25 mg tablet 25 mg PO DAILY Dulera 100-5 mcg/actuation HFA aerosol inhaler 2 puff inhalation BID mirtazapine 30 mg tablet 30 mg PO QPM atorvastatin 40 mg tablet 40 mg PO DAILY Eliquis 5 mg tablet 5 mg PO BID fluticasone furoate-vilanterol [Breo Ellipta] 100-25 mcg/dose blister with device 1 ea inhalation DAILY acetaminophen 325 mg tablet 650 mg PO Q6H PRN sennosides-docusate sodium [Senna-S] 8.6-50 mg tablet 1 - 4 tab-cap PO BID PRN (Reason: constipation) Qty: 60 0RF Rx Instructions: Hold medication if experiencing loose stools. cephalexin 500 mg capsule 500 mg PO TID 7 Days Qty: 21 0RF Follow Up/Referrals: Saúl Robison MD [Primary Care Provider] - Stand Alone Forms: [employer] Info Instructions
[2023-11-30 23:54] LABS: Basophils Absolute Auto 0.06 K/uL (0.00-0.30); Basophils Percent Auto 0.8 % (0.0-3.0); Eosinophils Absolute Auto 0.46 K/uL (0.00-0.50); Eosinophils Percent Auto 6.3 % (0.0-7.0); Hematocrit 39.4 % (37.0-53.0); Hemoglobin* 12.4 gm/dL (13.5-17.5); Immature Granulocytes Abs Auto 0.07 K/uL (0.00-0.30); Lymphocytes Percent Auto 18.4 % (20-44); Mean Corpuscular HGB Conc 32 gm/dL (32-36); Mean Corpuscular Hemoglobin 26 pg (26-34); Mean Corpuscular Volume 81 fL (80-100); Monocytes Percent Auto 11.1 % (0.0-11.0); Neutrophils Absolute Auto 4.53 K/uL (1.7-7.0); Neutrophils Percent Auto 62.4 % (42.0-72.0); Platelet Count* 181 K/uL (140-440); Red Blood Count 4.87 m/uL (4.30-5.90); White Blood Count* 7.27 K/uL (4.50-11.00)
[2023-11-30 23:56] LABS: Slide Review Reflex No
[2023-12-01] MEDS: cefTRIAXone 1 GM in 0.9 % SODIUM CHLORIDE Mini-bag 100 ML IVPB
[2023-12-01 00:05] VITALS: PULSE 70; O2SAT 95
[2023-12-01 00:06] VITALS: BP 131/67; PULSE 70; RESP 18; O2SAT 95
[2023-12-01 00:12] LABS: Chloride* 107 mmol/L (96-114); Potassium* 4.1 mmol/L (3.6-5.1); Sodium* 138 mmol/L (135-149)
[2023-12-01 00:14] LABS: Creatinine* 0.7 mg/dL (0.5-1.5); Est. Creatinine Clearance* 74.33; Estimated Glomerular Filt Rate 99 ml/min
[2023-12-01 00:15] VITALS: PULSE 70; O2SAT 95
[2023-12-01 00:15] LABS: Anion Gap 4 mEq/L (7-15); Blood Urea Nitrogen* 23 mg/dL (7-30); Calcium* 8.8 mg/dL (8.4-10.6); Carbon Dioxide* 27 mmol/L (20-32); Glucose* 107 mg/dL (60-115)
[2023-12-01 00:30] VITALS: PULSE 70; O2SAT 97
== END 2023-12-01 00:41 | disposition home or self-care (01) ==
LOC: ED 12-01 00:16
PROVIDERS: Emergency Provider Emergency Medicine Emergency Medical Services; PCP Family Medicine
DX: L03.115 Cellulitis of right lower limb (principal)
CPT/HCPCS: 36415; 80048; 85025; 96365; 99283; 99284; J0696

== ENCOUNTER 2023-12-05 08:32 | Outpatient (CLI) | payer MEDICARE, BC, SELFPAY | END 2023-12-05 08:33 | disposition home or self-care (01) | LOC: WOUND 08:33 | PROVIDERS: PCP Family Medicine; Visit Provider Surgery | DX: I87.2 Venous insufficiency (chronic) (peripheral) (principal); S91.105A Unspecified open wound of left lesser toe(s) without damage to nail, initial encounter | CPT/HCPCS: 97597 ==

== ENCOUNTER 2023-12-12 08:24 | Outpatient (CLI) | payer MEDICARE, BC, SELFPAY | END 2023-12-12 08:25 | disposition home or self-care (01) | LOC: WOUND 08:25 | PROVIDERS: PCP Family Medicine; Visit Provider Surgery | DX: I87.313 Chronic venous hypertension (idiopathic) with ulcer of bilateral lower extremity (principal); I87.2 Venous insufficiency (chronic) (peripheral); I89.0 Lymphedema, not elsewhere classified; L97.528 Non-pressure chronic ulcer of other part of left foot with other specified severity; L97.812 Non-pressure chronic ulcer of other part of right lower leg with fat layer exposed | CPT/HCPCS: 97597 ==

== ENCOUNTER 2023-12-19 08:27 | Outpatient (CLI) | payer MEDICARE, BC, SELFPAY | END 2023-12-19 08:28 | disposition home or self-care (01) | LOC: WOUND 08:33 | PROVIDERS: PCP Family Medicine; Visit Provider Surgery | DX: I87.311 Chronic venous hypertension (idiopathic) with ulcer of right lower extremity (principal); I87.2 Venous insufficiency (chronic) (peripheral); L97.812 Non-pressure chronic ulcer of other part of right lower leg with fat layer exposed; I89.0 Lymphedema, not elsewhere classified | CPT/HCPCS: 97597 ==

== ENCOUNTER 2023-12-26 08:33 | Outpatient (CLI) | payer MEDICARE, BC, SELFPAY | END 2023-12-26 08:34 | disposition home or self-care (01) | LOC: WOUND 08:34 | PROVIDERS: PCP Family Medicine; Visit Provider Surgery | DX: I87.311 Chronic venous hypertension (idiopathic) with ulcer of right lower extremity (principal); I87.2 Venous insufficiency (chronic) (peripheral); L97.812 Non-pressure chronic ulcer of other part of right lower leg with fat layer exposed; I89.0 Lymphedema, not elsewhere classified | CPT/HCPCS: 97597 ==

== ENCOUNTER 2024-01-02 08:23 | Outpatient (CLI) | payer MEDICARE, BC, SELFPAY | END 2024-01-02 08:24 | disposition home or self-care (01) | PROVIDERS: PCP Family Medicine; Visit Provider Surgery | DX: I87.311 Chronic venous hypertension (idiopathic) with ulcer of right lower extremity (principal); I87.2 Venous insufficiency (chronic) (peripheral); I89.0 Lymphedema, not elsewhere classified; L97.812 Non-pressure chronic ulcer of other part of right lower leg with fat layer exposed | CPT/HCPCS: 97597 ==

== ENCOUNTER 2024-01-09 08:35 | Outpatient (CLI) | payer MEDICARE, BC, SELFPAY | END 2024-01-09 08:36 | disposition home or self-care (01) | LOC: WOUND 08:35 | PROVIDERS: PCP Family Medicine; Visit Provider Surgery | DX: I87.311 Chronic venous hypertension (idiopathic) with ulcer of right lower extremity (principal); I87.2 Venous insufficiency (chronic) (peripheral); I89.0 Lymphedema, not elsewhere classified; L97.818 Non-pressure chronic ulcer of other part of right lower leg with other specified severity | CPT/HCPCS: G0463 ==

== ENCOUNTER 2024-01-23 08:23 | Outpatient (CLI) | payer MEDICARE, BC, SELFPAY | END 2024-01-23 08:24 | disposition home or self-care (01) | LOC: WOUND 08:23 | PROVIDERS: PCP Family Medicine; Visit Provider Surgery | DX: I89.0 Lymphedema, not elsewhere classified (principal); I87.2 Venous insufficiency (chronic) (peripheral) | CPT/HCPCS: G0463 ==

== ENCOUNTER 2024-12-22 11:01 | Emergency (ER) | payer MEDICARE, BC, SELFPAY ==
--- OUTSIDE RECORDS SUMMARY | 2017-05-18 19:00 | XMS_ITS | Continuity of Care Document ---
Author Organization [facility] Address [address] [place] [address] Phone Care Team Providers Care Family Reunification Specialist Name Role Phone Dominick Grimaldo MD Unavailable Unavailable Procedures Procedure Date ECHO COMPLETE W/DPLR & CF IP INITIAL HOSPITAL CARE SUBSEQUENT HOSPITAL CARE Advance Directives Directive Yes / No Effective Date File Name No Information Encounters Encounter Description Practice Location Reason(s) For Visit Diagnoses Date Provider Providers Copied on Encounter [facility], [address], [place], [address], [place] tel: [phone] [facility] No Information Re Tan. [address], [facility], [place], [place], [id number] , [place]. tel: [phone] Referring Provider: Mingo Ramirez MD, [address] [facility], [place], [address]. tel:[phone] [facility], [address], [place], [address], [place] tel: [phone] [facility] Precordial painDissection of abdominal aortaHypertensiv e urgency Re Tan. [address], [facility], [place], [place], [id number] , [place]. tel:[phone] Referring Provider: Yohannes Cortes, [address], [place], [address]. tel:[phone] Family History Family Member Type Diagnosis Age At Onset No Information Payers Payer name Insurance type Covered alliance party ID Lakia cisneros(s) [employer] [id number] Medicare Part B [id number] Social History Type Description Quantity Date Captured Comments Sex Male Smoking Status No Information Chief Complaint And Reason For Visit No Information Reason For Referral Reason For Referral No Information History Of Present Illness Encounter Date Complaint History Of Prese nt Illness No Information Functional Status Date Functional Assessmen t No Information Instructions Date Instruction Additional Infor mation No Information Assessments Type Assessment Date No Information Patient Care Teams Name Effective Dates (start - stop) Status Members No Information
--- OUTSIDE RECORDS SUMMARY | 2024-12-22 11:06 | XMS_ITS | Clinical Summary ---
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 Serotonin release assay sent 06/21 and pending at this time Melatonin Tongue Swelling 09/20/2013 Montelukast Dizziness,Headache 06/06/2010 Nitroglycerin Other - Describe In Comment Field 02/26/2014 Not true allergy. Contraindicated in HYPERTROPHIC OBSTRUCTIVE CARDIOMYOPATHY. Medications camphor-menthol, 0.5%-0.5%, (SARNA ANTI-ITCH) lotionIndications: Rash Apply topically to affected area(s) 3 times daily if needed for Itching. 222 mL 04/25/20 Active Additional Information Patient not taking.Reported on 09/01/2024 sennosides (SENNA) 8.6 mg tabletIndications: Acute cerebellar hemorrhage (HC) Take 2 Tablets (17.2 mg) by mouth two times daily. Increase to up to 4 tabs twice daily as needed. For constipation 06/19/20 Active apixaban (Eliquis) 5 mg tabletIndications: NSVT (nonsustained ventricular tachycardia) (HC),Paroxysmal atrial fibrillation (HC) Take 1 Tablet (5 mg) by mouth two times daily. 60 Tablet 11 03/28/20 24 Active atorvastatin (LIPITOR) 40 mg tabletIndications: Hyperlipidemia, unspecified hyperlipidemia type Take 1 Tablet (40 mg) by mouth at bedtime. 90 Tablet 3 04/11/20 24 Active docusate (COLACE) 100 mg capsule Take 100 mg by mouth two times daily. Active amoxicillin 500 mg capsuleIndications :SBE (subacute bacterial endocarditis) prophylaxis candidate Take 4 capsules by mouth 1 hour prior to dental appointment. 8 Capsule 1 07/24/19 25 Active pantoprazole (Protonix) 40 mg delayed-release tabletIndications: Presence of Watchman left atrial appendage closure device Take 1 Tablet (40 mg) by mouth once daily. 90 Tablet 3 09/02/19 25 Active aspirin (ECOTRIN) 81 mg enteric coated tabletIndications: Presence of Watchman left atrial appendage closure device Take 1 Tablet (81 mg) by mouth once daily with a meal. 90 Tablet 3 09/02/19 25 Active clopidogreL (Plavix) 75 mg tabletIndications: Presence of Watchman left atrial appendage closure device Take 1 Tablet (75 mg) by mouth once daily. 135 Tablet 09/02/19 25 025 Active losartan (COZAAR) 25 mg tabletIndications: Essential hypertension Take 0.5 Tablets (12.5 mg) by mouth once daily. Please call [phone] 2 months in advance to schedule an office visit due in Jan [address] 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 Recreation of R noncoronary sinuse of Valsalva. Complete R & L RFA MAZE & ligation of Left atrial appendage. Septal Myectomy Initial Desc ao: 4 cm 12/2017: The proximal descending thoracic aorta diameters are slightly smaller on this exam, which likely represents a difference in measurement technique. The prior exam was 4.5 x 4.3 cm and this was 4.6 x 3.4 cm. The false lumen dimension was 3.1 cm and is now 2.6 cm. Cerebrovascular disease 02/24/2014 Overview (02/24/2014): Status post stroke(s) at time of aortic dissection repair. Hypertrophic obstructive cardiomyopathy 09/08/19 Overview (09/08/2013): S/p septal myomectomy at time of emergent Type A aortic dissection repair with Dr. Marshall 09/06/2013 Lumbar radiculopathy 05/03/2011 Actinic keratoses 07/12/2010 Hyperlipidemia Asthma Overview (09/12/2007): mild Rosacea Resolved Problems Problem Noted Date Diagnosed Date Resolved Date Contusion, laceration, and h emorrhage of cerebellum with loss of consciousness of unspecified duration, initial encounter 04/30/2023 07/17/2023 A-fib 04/17/2023 04/11/2024 Pre-syncope 04/17/2023 04/11/2024 Focal hematoma of cerebellum 08/09/2021 07/17/2023 Acute hypoxemic respiratory failure 05/23/2021 07/17/2023 Upper GI bleed 12/29/2016 04/11/2024 Acute blood loss anemia 12/29/2016 06/0 01/2021 Anticoagulation monitoring, INR range 2.5-3.5 03/03/20 14 01/31/2017 Lupus anticoagulant disorder, possible 02/27/2014 08/01/2022 Overview (02/27/2014): Factor X and INR fail to correlate. Lupus anticoagulant panel pending at time of discharge 02/27/2014 CVA (cerebral infarction) 2014 Overview (02/27/2014): Likely embolic. TIA (transient ischemic attack) 02/24/2014 2014 Anticoagulation monitoring, INR range 2-3 10/06/2013 02/27/2014 S/P aortic dissection repair 09/08/2013 02/24/2014 Overview (09/08/2013): 09/06/2013 Dr. Marshall: 1. Repair of ascending aorta and transverse arch with a 32-mm Hemashield [place] arch graft including reimplantation and repair of left common carotid artery with a separate graft as well as the innominate artery with a separate graft. 2. recreation of the right noncoronary sinus of Valsalva. S/P Maze operation for atrial fibrillation 09/08/2013 02/24/2014 Overview (09/08/2013): 09/06/2013 Dr. Marshall Aortic dissection 09/06/2013 02/24/2014 Chronic anticoagulation 09/06/201310/30 Encounter for Long-Term (Cur rent) Use of Anticoagulants 04/03/2008 11/04/2013 Overview (04/05/2009): INR range 2.0-3.0 Hypertension 12/07/2020 Unspecified Hypertensive Hea rt Disease without Heart Failure 02/24/2014 Overview (09/12/2007): cardiomyopathy Cerebral edema 04/11/2024 Obstructive hydrocephalus Encounters Date Type Department Care Team Description 12/22/2024 Nurse Triage [facility] [address] [place] [address] Saúl Robison MD Leg Pain/problem (Left-calf) from Last 3 Months Immunizations Immunization Administration Dates Next Due AMB INFLUENZA IIV3 (AGE 65+ YRS) PF (Flu Clinic Only) 04/22/2019 COVID-19 vaccine (Endocyte-Bio NTech 30mcg/0.3mL) PF, MDV 09/25/2020,09/04/2020 Hepatitis B (Adult) 04/23/2008,10/11/2001,2001 Influenza, High-dose Inactivated 03/13/2024,04/02 Influenza, High-dose Quadriv alent Inactivated 05/11/2023,04/11/2022,04/21/2020 Influenza, IIV3 (Age 6-35 mos) 03/10/2011 Influenza, IIV3 (Age >=3 years) 03/31/20 13,04/03/2012,03/10/2011,2009,04/20/2008 Influenza, IIV4 03/06/2014 Influenza, IIV4 (=>6mos) MDV 03/29/2017,03/22/20 15 Influenza, Inactivated AIIV4 (Age 65+ Years) Preserv Free 06/29/2021 Pneumococcal Poly,23-Valent (Pneumovax) 06/22/2020,05/03/2009 Pneumococcal conj 13-Valent (Prevnar 13) 05/08/2018 Td (Age >=7 Years) 04/27/1999 Tdap 05/03/2009 Zoster (Zostavax-ZVL, live) 06/17/2014 Family History Medical History Relation Name Comments Diabetes Brother Type I Other Father Parkinson's Cancer-breast Mother 60s Heart Disease Mother Hypertrophic C ardiomyopathy Asthma Paternal Uncle of asthm a attack Cancer Sister ovarian Relation Name Status Comments Brother Father (Age 80) Mother Alive Paternal Uncle Sister Social History Tobacco Use Types Packs/Day Years Used Date Smoking Tobacco: Never Passive Smoke Exposure: Never Smokeless Tobacco: Never Tobacco Cessation:Counseling Given: No Alcohol Use Standard Drinks/Week Comments Not Currently 0 (1 standard drink = 0.6 oz pure alcohol) Nothing in last 6 months as of 11/22/2021 ks PHQ-2 Answer Date Recorded PHQ-2 TOTAL SCORE 0 04/11/2024 Social Connections Answer Date Recorded Do you often feel lonely or isolated from those around you? 0 04/30/2023 Financial Resource Strain Answer Date R ecorded Difficulty of Paying Living Expenses 3 04/30/2023 Difficulty of Paying Living Expenses Not on file 04/30/2023 Food Insecurity Answer Date Recorded Do you worry your food will run out before you are able to buy more? 1 04/30/2023 Transportation Needs Answer Date Record ed Does lack of transportation keep you from medica l appointments? 1 04/30/2023 Does lack of transportation keep you from work, meetings or getting things that you need? 1 04/30/2023 Housing Stability Answer Date Recorded What is your housing situation today? 1 04/30/2023 Interpersonal Safety Answer Date Record ed Are you being hit, kicked, p ushed or yelled at (see row info)? No 06/23/2024 Interpersonal Safety Abuse 12 - 18 Not on file 06/23/2024 Interpersonal Safety Ambulatory Vulnerability No t on file 06/23/2024 Sex and Gender Information Value Date Recorded Sex Assigned at Not on file Legal Sex Male 5:25 AM WINDOW MAKER Gender Identity Not on file Sexual Orientation Straight 02/07/2021 9: 16 AM CDT Occupation Industry Job Start Date Job End Date [employer] Not on file Not on file Not on f ile Obstetrics History Last Filed Vital Signs Vital Sign Reading Time Taken Comments Blood Pressure 134/71 09/01/2024 1:30 PM WINDOW MAKER Pulse 99 09/01/2024 1:30 PM WINDOW MAKER Temperature 36.4 C (97.6 F) 07/17/2024 8:38 AM WINDOW MAKER Respiratory Rate 16 09/01/2024 12:0 0 PM WINDOW MAKER Oxygen Saturation 95% 09/01/2024 1:30 PM WINDOW MAKER Inhaled Oxygen Concentration - - Weight 76.1 kg (167 lb 11.2 oz) 025 1:30 PM WINDOW MAKER Height 182.9 cm (6' 0.01) 09/01/2024 1:30 PM CS T Body Mass Index 22.74 09/01/2024 1:30 PM WINDOW MAKER Plan of Treatment Upcoming Encounters Date Type Department Care Team (Late st Contact Info) Description 02/02/2025 10:00 AM CDT Orders Only [facility] Emani Shabazz [address] [address] [place] [address] 02/02/2025 11:00 AM CDT Ancillary Procedure [facility] [address] [place] [address] 02/13/2025 3:30 PM CDT [facility] [address] [place] [address] [place] [id number] Abraham Chang MD [address] [facility] [address] [place] [address] 04/01/2025 Cardiac Device Check [facility] [phone] 05/19/2025 2:30 PM WINDOW MAKER Office Visit [facility] [address] [facility] [address] [place] [address] Sofiya Pink PA [address] [facility] [place] [address] Health Maintenance Due Date Last Done Comments RSV vaccine for adults or (1 - Risk 60-74 years 1-dose series) 2012 Zoster (shingles) series for age 50+ (2 of 3) 08/12/2014 06/17/2014 Tetanus booster 05/03/2019 05/03/2009, 04/27/1999 COVID-19 vaccine series ( season) 2024 03/06/2024, 04/04/2023, 12/22/2022, Additional history exists Depression screening for age 12+ 04/11/2025 04/11/2024, 08/02/2022, 08/01/2022, Additional history exists Medicare Wellness for age 65+ 04/12/2025 04/11/2024, 08/01/2022 BMI (ht and wt on same day) for age 18+ 09/01/2025 09/01/2024, 04/11/2024, 01/17/2024, Additional history exists Fecal testing sDNA-FIT ([place] guard) for age 45-75 05/08/2027 05/08/2024 Lipids for age 45-75 04/11/2029 04/11/2024, 07/17/2023, 08/01/2022, Additional history exists Hepatitis B series for 19+ Completed 04/23, 10/11/2001, 09/10/2001 Tdap Completed 05/03/2009 Pneumococcal series for age 50+ Completed 06/22/2020, 05/08/2018, 05/03/2009 Hepatitis C screening for ag e 18-79 Completed 08/01/2022 Influenza Vaccine Completed 03/13/2024, , 04/22/2019, Additional history exists Medical Devices Implanted Type Area Doll Maker Device Identifier Shelf Expiration Date Model / Serial / Lot Graft Hemalex 4branch 37-77-66-10-10mm [place] - [id number] Implanted:Qty: 1 on 09/08/2013 by Derek Marshall MD at [facility] N/A: Aortic Arch [employer] 07/01/2016 [id number] / / [id number] Dura Neuro 3x3in Duragen Plusnon-Sut - [id number] Implanted:Qty: 1 on 05/20/2021 by Mikey Goodman MD at [facility] [employer]ium Inte[employer] Jessica 12/30/2023 [id number]-1033 / / [id number] Dura Neuro 5ml Duraseal - [id number] Implanted:Qty: 1 on 05/20/2021 by Mikey Goodman MD at [facility] [employer] Inte[employer] Jessica 08/29/2022-2049 / / [id number] Screw Neuro 4mm Matrixneuro Slf Drill Titnm - [id number] Implanted:Qty: 6 on 05/20/2021 by Mikey Goodman MD at [facility] Cranium Dano Depzuleima CMF [id number] 4.01 / / Plate Facial 12mm 2hole Synthes Stra - [id number] Implanted:Qty: 3 on 05/20/2021 by Mikey Goodman MD at [facility] Cranium J And Geena Penny CMF [id number] / / Procedures Procedure Name Priority Date/Time Associated Diagnosis Comments SDNA-FIT EXTERNAL (COLOGUARD) Routine 05/08/2024 9:52 AM WINDOW MAKER Screen for colon cancer LIPID PANEL W REFLEX MEASURED LDL Routine 04/11/2024 11:08 AM CDT Hyperlipidemia, unspecified hyperlipidemia type LC HCV ANTIBODY RFX TO QUANT PCR Routine 08/01/2022 3:43 PM WINDOW MAKER Need for hepatitis C screening test from Last 3 Months or Most Recently Relevant to Health Maintenance Results * SDNA-FIT EXTERNAL (COLOGUARD) (05/08/2024 9:52 AM WINDOW MAKER) NONINV COLON CA DNA+OCC BLD SCRN STL-IMP Negative Negative 05/15/2024 8:26 PM WINDOW MAKER [employer] (CLIA #:[id number]) Comment: NEGATIVE TEST RESULT. A negative Cologuard result indicates a low likelihood that a colorectal cancer (CRC) or advanced adenoma (adenomatous polyps with more advanced pre-malignant features) is present. The chance that a person with a negative Cologuard test has a colorectal cancer is less than 1 in 1500 (negative predictive value >99.9%) or has an advanced adenoma is less than 5.3% (negative predictive value 94.7%). These data are based on a prospective cross-sectional study of 10,000 individuals at average risk for colorectal cancer who were screened with both Cologuard and colonoscopy. (Gab Julian. et al, N Engl J Med 2014;370(14):6756-1278) The normal value (reference range) for this assay is negative. COLOGUARD RE-SCREENING RECOMMENDATION: Periodic colorectal cancer screening is an important part of preventive healthcare for asymptomatic individuals at average risk for colorectal cancer. Following a negative Cologuard result, the [place] Cancer Society and U.S. Multi-Society Task Force screening guidelines recommend a Cologuard re-screening interval of 3 years. References: [place] Cancer Society Guideline for Colorectal Cancer Screening: https://www.cancer.org/cancer/wzgzm-snlgcd-nkhcvl/livifawei-qnrtqlgqa-qynydwf/ac s-rec ommendations.html.; Nito CARLSON, Albert PAUL, Antonette SAINI, Colorectal Cancer Screening: Recommendations for Physicians and Patients from the U.S. Multi-Society Task Force on Colorectal Cancer Screening , Am J Gastroenterology 2017; 112:3710-5305. TEST DESCRIPTION: Composite algorithmic analysis of stool DNA-biomarkers with hemoglobin immunoassay. Quantitative values of individual biomarkers are not reportable and are not associated with individual biomarker result reference ranges. Cologuard is intended for colorectal cancer screening of adults of either sex, 45 years or older, who are at average-risk for colorectal cancer (CRC). Cologuard has been approved for use by the U.S. FDA. The performance of Cologuard was established in a cross sectional study of average-risk adults aged 50-84. Cologuard performance in patients ages 45 to 49 years was estimated by sub-group analysis of near-age groups. Colonoscopies performed for a positive result may find as the most clinically significant lesion: colorectal cancer [4.0%], advanced adenoma (including sessile serrated polyps greater than or equal to 1cm diameter) [20%] or non- advanced adenoma [31%]; or no colorectal neoplasia [45%]. These estimates are derived from a prospective cross-sectional screening study of 10,000 individuals at average risk for colorectal cancer who were screened with both Cologuard and colonoscopy. (Gab Tobin et al, N Engl J Med 2014;370(14):5227-1172.) Cologuard may produce a false negative or false positive result (no colorectal cancer or precancerous polyp present at colonoscopy follow up). A negative Cologuard test result does not guarantee the absence of CRC or advanced adenoma (pre-cancer). The current Cologuard screening interval is every 3 years. ([place] Cancer Society and U.S. Multi-Society Task Force). Cologuard performance data in a 10,000 patient pivotal study using colonoscopy as the reference method can be accessed at the following location: www.[employer]vision [employer] Green/results. Additional description of the Cologuard test process, warnings and precautions can be found at www.eFuneralogTeam-Matchrd.com. Stool specimen (specimen) (Rectum) 05/08/2024 9:52 AM WINDOW MAKER 05/09/2024 11:19 AM WINDOW MAKER Saúl Robison MD URINE Final Result [employer] (CLIA #:[id number]) [place] [address], [place] [phone] * LIPID PANEL W REFLEX MEASURED LDL (04/11/2024 11:08 AM CDT) CHOLESTEROL, TOTAL 108 <200 mg/dL [facility] HDL CHOLESTEROL 46 > OR = 40 mg/dL [facility] TRIGLYCERIDES 59 <150 mg/dL [facility] LDL-CHOLESTEROL 48 mg/dL (calc) [facility] Comment: Reference range: <100 Desirable range <100 mg/dL for primary prevention; <70 mg/dL for patients with CHD or diabetic patients with > or = 2 CHD risk factors. LDL-C is now calculated using the Demetris-Laurel calculation, which is a validated novel method providing better accuracy than the Friedewald equation in the estimation of LDL-C. Demetris COHEN et al. ELDON. 2013;310(19): 3620-0797 (http://education.[employer]ch[employer] Green/faq/YPH750) CHOL/HDLC RATIO 2.3 <5.0 (calc) [facility] NON HDL CHOLESTEROL 62 <130 mg/dL (calc) [facility] Comment: For patients with diabetes plus 1 major ASCVD risk factor, treating to a non-HDL-C goal of <100 mg/dL (LDL-C of <70 mg/dL) is considered a therapeutic option. Blood BLOOD SPECIMEN / Unknown 04/11/2024 11:08 AM CDT 04/11/2024 11:08 AM CDT Saúl Robison MD CHEMISTRY Final Result [facility] [address] [facility] [place] [address], [place] [phone] [facility] [address] [place] [address] * LC HCV ANTIBODY RFX TO QUANT PCR (08/01/2022 3:43 PM WINDOW MAKER) HCV Ab 0.2 0.0 - 0.9 s/co ratio 08/04/2022 10:06 PM WINDOW MAKER [facility] Blood BLOOD SPECIMEN / Unknown Venipuncture / Unknown 08/01/2022 3:43 PM WINDOW MAKER 08/01/2022 3:45 PM WINDOW MAKER Narrative [facility] - 08/04/2022 10:06 PM WINDOW MAKER Performed at: [address] [place] [id number] Greige Goods Inspector: Kali Noyola MD, Phone: [phone] Saúl Robison MD LABORATORY Final Result [facility] [address] [place] [phone], from Last 3 Months or Most Recently Relevant to Health Maintenance Insurance MEDICARE PART B HB ONLY MEDICARE PART A HB ONLY [place] BL[place] MR PB ONLY [place] BLUE HB ONLY [facility] HC MEDICARE PPS Advance Directives Documents on File Type Date Recorded Patient Sales Lead Expl anation Healthcare Directive 03/20/2019 019 * Full Code (Latest Code Status on File) Date Activated Date Inactivated Comments 09/01/2024 10:50 AM 09/02/2024 2:13 AM Question Answer Comments Code Status Discussion: Reviewed Preferences * Full Code Date Activated Date Inactivated Comments 07/16/2024 12:40 PM 07/17/2024 1:35 PM Question Answer Comments Code Status Discussion: Reviewed Preferences * Full Code Date Activated Date Inactivated Comments 04/17/2023 6:43 PM 04/25/2023 1:10 PM Question Answer Comments Code Status Discussion: Reviewed Preferences * Full Code Date Activated Date Inactivated Comments 06/01/2021 12:42 PM 06/24/2021 12:21 PM Question Answer Comments Code Status Discussion: Reviewed PreferencesOthe r Physician reviewed at admit * Full Code Date Activated Date Inactivated Comments 05/19/2021 8:59 PM 06/01/2021 12:39 PM Question Answer Comments Code Status Discussion: Reviewed Preferences Care Teams Head Porter Baggage Relationship Specialty Start Date End Date Saúl Robison MD [address] [place] [address] PCP - General Family Practice 11/19/20
[2024-12-22 11:08] VITALS: BP 135/62; PULSE 77; RESP 18; TEMP 36.9; O2SAT 98; BMI 20.1
--- NOTE | 2024-12-22 11:33 | CRLHL7_ITS ---
For Patients: As a result of the Century Cures Act, medical imaging exams and procedure reports are released immediately into your electronic medical record. You may view this report before your referring provider. If you have questions, please contact your health care provider. INDICATION: Left lower extremity swelling. TECHNIQUE: Left lower extremity Doppler venous ultrasound examination was performed. Grayscale and color Doppler images were obtained. Spectral analysis was performed. COMPARISON: None. FINDINGS: RIGHT LOWER EXTREMITY: Common femoral vein: Fully compressible. No deep vein thrombus. Normal flow and response to augmentation on color Doppler imaging. LEFT LOWER EXTREMITY: Common femoral vein: Fully compressible. No deep vein thrombus. Normal flow and response to augmentation on color Doppler imaging. Superficial femoral vein: Fully compressible. No deep vein thrombus. Normal flow on color Doppler imaging. Deep femoral vein: No deep vein thrombus Popliteal vein: Fully compressible. No deep vein thrombus. Normal flow on color Doppler imaging. Lower calf: The visualized posterior tibial and peroneal veins are fully compressible. No deep vein thrombus. Normal flow and response to augmentation on color Doppler imaging. Superficial veins: The superficial veins, including the greater saphenous vein, remain patent and are fully compressible. Soft tissues: No popliteal fossa fluid collection identified. IMPRESSION: No deep vein thrombus within the left lower extremity. Dictated by Eliezer Nguyen MD @ 12/22/2024 12:09:02 PM (Electronically Signed)
--- NOTE | 2024-12-22 11:34 | ED.GENADULT ---
HPI - General Adult General Chief complaint: Extremity Pain/Injury, Lower Stated complaint: Possible blood clot L calf Time Seen by Provider: 12/22/24 11:16 History of Present Illness HPI narrative: This 74-year-old male comes in reporting some increased discomfort in his left lower extremity with some redness and swelling. His states that he had flu-like symptoms 2 days ago and was in bed all day. Yesterday he had these symptoms in his left lower extremity. He typically does wear compression stockings. He is taking a baby aspirin and Plavix and his states that he had been on Eliquis but this was discontinued as he did develop a brain bleed. He does not report any shortness of breath or chest discomfort and arrives here with normal vital signs. Related Data Home Medications ?Medication ?Instructions ?Recorded ?Confirmed acetaminophen 325 mg tablet 650 mg PO Q6H PRN 06/13/23 11/18/23 atorvastatin 40 mg tablet 40 mg PO DAILY 06/13/23 12/22/24 fluticasone furoate 100 1 ea inhalation DAILY 06/13/23 11/18/23 mcg-vilanterol 25 mcg/dose inhalation powder (Breo Ellipta) amiodarone 200 mg tablet 100 mg PO DAILY 07/25/23 11/18/23 losartan 25 mg tablet 25 mg PO DAILY 07/25/23 12/22/24 mometasone-formoterol HFA 100 2 puff inhalation BID 07/25/23 11/18/23 mcg-5 mcg/actuation aerosol inhaler (Dulera) aspirin 81 mg tablet,delayed 81 mg PO DAILY 12/22/24 12/22/24 release (Adult Aspirin Regimen) clopidogrel 75 mg tablet 75 mg PO DAILY 12/22/24 12/22/24 pantoprazole 40 mg tablet,delayed 40 mg PO DAILY 12/22/24 12/22/24 release Previous Rx's ?Medication ?Instructions ?Recorded sennosides 8.6 mg-docusate sodium 1 - 4 tab-cap (1 - 4 x 8.6-50 mg) 06/16/23 50 mg tablet (Senna-S) PO BID PRN constipation #60 tabs cephalexin 500 mg capsule 500 mg PO TID 7 days #21 caps 11/22/23 cephalexin 500 mg capsule 500 mg PO TID 7 days #21 caps 11/30/23 cephalexin 500 mg capsule 500 mg PO TID 7 days #21 caps 12/22/24 Allergies Allergy/AdvReac Type Severity Reaction Status Date / Time melatonin Allergy Unknown Verified 12/22/24 11:15 nitroglycerin Allergy Unknown Verified 11/20/23 11:21 Review of Systems Status of ROS: Reports: 10 or more systems reviewed and unremarkable except as noted in History and below Narrative: Constitutional: No fevers, no weight gain or loss. Eyes: No discharge. No vision changes. HENT: No congestion, no sore throat, no ear pain. Cardiovascular: No chest pain, no palpitations. Respiratory: No shortness of breath, no wheezes, no cough. Gastrointestinal: No abdominal pain, no vomiting, no diarrhea. Genitourinary: No dysuria, no hematuria. Musculoskeletal: Normal range of motion. Bilateral lower extremity swelling with some increased pain on the left lower extremity. Skin: No rashes, no pruritis. Neurological: No dizziness, weakness, sensory change, speech change. Endo/Heme/Allergies: No bruising or bleeding. No polydipsia. Pysch: no suicidality, no anxiety, no insomnia. All other systems reviewed and are negative. [facility] Medical History (Updated 12/22/24 @ 12:06 by Minh Mahoney MD) Hyperlipidemia ?E78.5 - Hyperlipidemia, unspecified (ICD-10) Pacemaker ?Z95.0 - Presence of cardiac pacemaker (ICD-10) Atrial fibrillation ?I48.91 - Unspecified atrial fibrillation (ICD-10) Injury of hip, left ?S79.912A - Unspecified injury of left hip, initial encounter (ICD-10) Embolic stroke ?I63.9 - Cerebral infarction, unspecified (ICD-10) NSVT (nonsustained ventricular tachycardia) ?I47.29 - Other ventricular tachycardia (ICD-10) Cerebellar hemorrhage ?I61.4 - Nontraumatic intracerebral hemorrhage in cerebellum (ICD-10) Thrombus of left atrial appendage ?I51.3 - Intracardiac thrombosis, not elsewhere classified (ICD-10) Left bundle branch block ?I44.7 - Left bundle-branch block, unspecified (ICD-10) COPD mixed type ?J44.9 - Chronic obstructive pulmonary disease, unspecified (ICD-10) Stroke ?I63.9 - Cerebral infarction, unspecified (ICD-10) Cardiomyopathy ?I42.9 - Cardiomyopathy, unspecified (ICD-10) AA (aortic aneurysm) ?I71.9 - Aortic aneurysm of unspecified site, without rupture (ICD-10) Hypertension ?I10 - Essential (primary) hypertension (ICD-10) Surgical History History of surgery on lower extremity (06/14/23) ?Z98.890 - Other specified postprocedural states (ICD-10) Hx of repair of dissecting thoracic aortic aneurysm, Asa type A ?Z98.890 - Other specified postprocedural states (ICD-10) ?Z86.79 - Personal history of other diseases of the circulatory system (ICD-10) Social History What is your current living situation?: I presently have a place to live Problems where you live: no known problems Problems where you live details: N/A In the past 12 months, utilities in danger of being shut off: no In past 12 months, lack of transportation kept you from medical appts, meetings, work, or getting things needed for daily living: no In the past 12 mos, have been you worried that your food would run out before you had money to buy more?: never true In the past 12 mos, the food you bought just didn't last and you didn't have money to buy more?: never true Smoking Status: Never smoker Do you use any of these nicotine containing products: None Second hand tobacco smoke exposure: No How often do you have a drink containing alcohol: never How often do you have six or more drinks on one occasion: Never AUDIT-C Alcohol total score: 0 Non-prescribed substance use: denies use How often does anyone, including family, friends and others, physically hurt you: never How often does anyone, including family, friends and others, insult or talk down to you: never How often does anyone, including family, friends and others, threaten you with harm: never How often does anyone, including family, friends and others, scream or curse at you: never service: No Exam Narrative: Exam Narrative: Constitutional: Well-developed, well-nourished, no acute distress. HEENT: Normocephalic, atraumatic. Neck: Normal range of motion. Nontender. Supple. Heart: Regular. No murmurs. Normal rate. Intact distal pulses. Lungs: Clear to auscultation. No chest discomfort. No wheezes, rhonchi, or rales. Abdomen: Normal bowel sounds. Nontender. No rebound tenderness. Genitalia: Deferred. Back: No midline tenderness. Normal range of motion. Extremities: Normal range of motion. Left lower extremity has erythema from the area a bit below his knee down to his foot. There is mild to moderate edema. There is no skin breakdown. No pain or swelling in the upper leg. When elevating his leg above his heart the erythema dissipates significantly within a minute or so. Skin: Intact. No rash. Warm. No erythema or pallor. Neurologic: No altered sensation. No weakness. Alert and oriented. Psychiatric: No suicidality. No anxiety or depression. No insomnia. Nursing notes and vitals signs are reviewed. Const: Vital Signs, click to edit/add: Vital Signs - 24 hr 12/22/24 11:08 Temperature 98.5 F Pulse Rate [Pulse Oximeter] 77 Respiratory Rate 18 Blood Pressure [Ri t Upper Arm] 135/62 Pulse Oximetry 98 Oxygen Delivery Me thod Room Air Course Vital Signs Vital signs: Initial Vital Signs Temperature 98.5 F 12/22/24 11:08 Temperature Source Temporal Artery Scan 12/22/24 11:08 Pulse Rate 77 12/22/24 11:08 Respiratory Rate 18 12/22/24 11:08 Blood Pressure 135/62 12/22/24 11:08 Blood Pressure Mean 86 12/22/24 11:08 Blood Pressure Position Sitting 12/22/24 11:08 Pulse Oximetry 98 12/22/24 11:08 Oxygen Delivery Method Room Air 12/22/24 11:08 Vital Signs Temperature 98.5 F 12/22/24 11:08 Pulse Rate 77 12/22/24 11:08 Respiratory Rate 18 12/22/24 11:08 Blood Pressure 135/62 12/22/24 11:08 Pulse Oximetry 98 12/22/24 11:08 Oxygen Delivery Method Room Air 12/22/24 11:08 Temperature 98.5 F 12/22/24 11:08 Pulse Rate 77 12/22/24 11:08 Respiratory Rate 18 12/22/24 11:08 Blood Pressure 135/62 12/22/24 11:08 Pulse Oximetry 98 12/22/24 11:08 Oxygen Delivery Method Room Air 12/22/24 11:08 Medical Decision Making MDM Narrative Medical decision making narrative: This patient comes in with some discomfort and redness with mild swelling in his left lower extremity. He comes in with concern that this could be a blood clot but it appears there is more suspicion that this could be the beginnings of a cellulitis. An ultrasound of the left lower extremity does not show any evidence of thrombus. The patient does have normal vital signs. He does use compression stockings and is encouraged to continue these plans. I did provide a prescription for Keflex. Discharge Plan Discharge Clinical Impression: Cellulitis Patient Disposition: Home, Self-Care Condition: Stable Additional Instructions: Take medication as prescribed. Continue current plans otherwise. Follow up with MD return if worsening. Prescriptions: New cephalexin 500 mg capsule 500 mg PO TID 7 Days Qty: 21 0RF No Action losartan 25 mg tablet 25 mg PO DAILY amiodarone 200 mg tablet 100 mg PO DAILY Dulera 100-5 mcg/actuation HFA aerosol inhaler 2 puff inhalation BID atorvastatin 40 mg tablet 40 mg PO DAILY fluticasone furoate-vilanterol [Breo Ellipta] 100-25 mcg/dose blister with device 1 ea inhalation DAILY acetaminophen 325 mg tablet 650 mg PO Q6H PRN sennosides-docusate sodium [Senna-S] 8.6-50 mg tablet 1 - 4 tab-cap PO BID PRN (Reason: constipation) Qty: 60 0RF Rx Instructions: Hold medication if experiencing loose stools. cephalexin 500 mg capsule 500 mg PO TID 7 Days Qty: 21 0RF cephalexin 500 mg capsule 500 mg PO TID 7 Days Qty: 21 0RF aspirin [Adult Aspirin Regimen] 81 mg tablet,delayed release (DR/EC) 81 mg PO DAILY clopidogrel 75 mg tablet 75 mg PO DAILY pantoprazole 40 mg tablet,delayed release (DR/EC) 40 mg PO DAILY Follow Up/Referrals: Saúl Robison MD [Primary Care Provider, Family Practice] Stand Alone Forms: [facility] Info Instructions
[2024-12-22 12:12] VITALS: BP 125/58; PULSE 70; RESP 16
== END 2024-12-22 12:12 | disposition home or self-care (01) ==
PROVIDERS: Emergency Provider Emergency Medicine Emergency Medical Services; PCP Family Medicine
DX: L03.116 Cellulitis of left lower limb (principal); R60.9 Edema, unspecified
CPT/HCPCS: 93971; 99284

== ENCOUNTER 2025-05-14 12:12 | Emergency (ER) | payer MEDICARE, BC, SELFPAY ==
--- OUTSIDE RECORDS SUMMARY | 2025-01-03 03:00 | XMS_ITS ---
Author Organization [facility] Address [address] [place] [address] Care Team Providers Care Senior Sql Developer Name Role Phone Migration, Provider Unavailable Unavailable REASON FOR VISIT EMR-Memo Encounters Encounter Location Date Provider Diagnosis Migrated_Facility 0 0 01/03/2025 Provider Migration Plan Of Treatment No Information Progress Notes * Masood MAYDOB:1949 (75 yo M)Acc No.[id number]:01/03/2025 Patient: Candelario Masood SOMMER :1950 A ge:74 Y S ex:Male Address:[address] [place] [id number] Subjective: * Chief Complaints: * E MR-Memo * * Date:
--- OUTSIDE RECORDS SUMMARY | 2025-01-04 03:00 | XMS_ITS ---
Author Organization [facility] Address [address] [place] [address] Care Team Providers Care Nephrology Social Worker Name Role Phone Migration, Provider Unavailable Unavailable REASON FOR VISIT EMR-Memo Encounters Encounter Location Date Provider Diagnosis Migrated_Facility 0 0 01/04/2025 Provider Migration Plan Of Treatment No Information Progress Notes * Masood MAYDOB:1949 (75 yo M)Acc No.[id number]:01/04/2025 Patient: Candelario Masood SOMMER :1950 A ge:74 Y S ex:Male Address:[address] [place] [id number] Subjective: * Chief Complaints: * E MR-Memo * * Date:
--- OUTSIDE RECORDS SUMMARY | 2025-05-14 12:14 | XMS_ITS | Clinical Summary ---
Author Organization [employer] [facility] Address [address] [place] [id number] Care Team Providers Care Entry Level Project Engineer Name Role Phone Saúl Robison MD Primary [...] OBSTRUCTIVE CARDIOMYOPATHY. Medications camphor-menthol, 0.5%-0.5%, (SARNA ANTI-ITCH) lotionIndications :Rash Apply topically to affected area(s) 3 times daily if needed for Itching. 222 mL 023 Active sennosides (SENNA) 8.6 mg tabletIndications :Acute cerebellar hemorrhage (HC) Take 2 Tablets (17.2 mg) by mouth two times daily. Increase to up to 4 tabs twice daily as needed. For constipation 023 Active atorvastatin (LIPITOR) 40 mg tabletIndications :Hyperlipidemia, unspecified hyperlipidemia type Take 1 Tablet (40 mg) by mouth at bedtime. 90 Tablet 3 024 Active docusate (COLACE) 100 mg capsule Take 100 mg by mouth two times daily. Active pantoprazole (Protonix) 40 mg delayed-release tabletIndications :Presence of Watchman left atrial appendage closure device Take 1 Tablet (40 mg) by mouth once daily. 90 Tablet 3 Active fluticasone furoate-vilantero L (Breo Ellipta) 100-25 mcg/dose inhalation powderIndications :COPD mixed type (HC) INHALE ONE PUFF BY MOUTH ONE TIME DAILY 60 Each 11 025 Active sennosides-docusa te (8.6-50 mg) tablet Take by mouth. 023 Active acetaminophen 325 mg tablet Take 650 mg by mouth. 023 Active losartan (COZAAR) 25 mg tabletIndications :Essential hypertension TAKE HALF TABLET BY MOUTH DAILY 45 Tablet Active ketoconazole 2 % creamIndications: Tinea pedis of both feet,Onychomycosi s Apply to affected areas 2 times a day as needed. 60 g 11 Active oxyCODONE (ROXICODONE) 5 mg immediate release tablet Take 5 mg by mouth every 6 hours if needed. Active amoxicillin 500 mg capsuleIndication s:SBE (subacute bacterial endocarditis) prophylaxis candidate Take 4 capsules by mouth 1 hour prior to dental appointment. 4 Capsule 3 Active metoprolol tartrate (LOPRESSOR) 25 mg tabletIndications :Paroxysmal atrial fibrillation (HC),Pacemaker Take 0.5 Tablets (12.5 mg) by mouth two times daily. Re-start this medication (per Dr. Bee and Dr. Chang). Monitor BP and pulse daily. Bring VS trends to Electrophysiology team at time of 05/19/25 visit. Active azithromycin 500 mg tabletIndications :Pneumonia, bacterial Take 1 Tablet (500 mg) by mouth every 24 hours for 3 days. 3 Tablet 2024 Active cefuroxime axetil (CEFTIN) 500 mg tabletIndications :Pneumonia, bacterial Take 1 Tablet (500 mg) by mouth two times daily for 5 days. 10 Tablet 025 2024 Active triamcinolone (ARISTOCORT; KENALOG) 0.1 % creamIndications: Acute eczema Apply topically to affected area(s) three times daily. Not to exceed 14 days without interruption. 80 g 1 Active aspirin (ECOTRIN) 81 mg enteric coated tabletIndications :Presence of Watchman left atrial appendage closure device Take 1 Tablet (81 mg) by mouth once daily with a meal. 90 Tablet 3 025 2024 Disconti nued(*Pa tient states no longer taking) mometasone-formot rebeca 100-5 mcg/actuation inhaler Inhale by mouth. 2024 Disconti nued(*Pa tient states no longer taking) amiodarone 200 mg tablet Take 100 mg by mouth. 2024 Disconti nued(*Pa tient states no longer taking) clopidogreL 75 mg tabletIndications :Presence of Watchman left atrial appendage closure device Take 1 Tablet (75 mg) by mouth once daily. Additional refills to be received at upcoming appt with Dr. 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 Bee, [facility]) Closed fracture of hip 12/29/2024 Overview (12/29/2024): Status post left intramedullary nail (date of surgery 06/14/2023 - Dr. Townsend). Postoperative recommendations and follow-up Orthopedic Surgery. PT and OT consulted postoperatively. Patient is discharged to home with home health services. Cellulitis of foot 12/29/2024 Overview (12/29/2024): - no leukocytosis, CRP unremarkable, procalcitonin negative, BC x2 negative, 11/17 wound gram stain + for coag - staph - afebrile, stable VS throughout stay - CT of foot performed 11/19 without evidence of osteomyelitis - treated with Vancomycin and Zosyn (11/18) during stay, home on oral Cephalexin and wound care clinic f/u Cellulitis 12/29/2024 Atrial flutter 12/29/2024 Overview (12/29/2024): AI Summary: As of 04/25/23: The patient's cardiac rhythm is characterized by atrial flutter, which is also the indication for the study on 04/19/2023. The atrial sensing P wave is 0.8 mV, and atrial capture shows MATHEW atrial flutter. The underlying rhythm is atrial flutter with complete heart block (CHB), with an escape rate of 43 bpm. 09/01/24: HR 99 /min 07/16/24: K 4.4 mmol/L On meds: apixaban, atorvastatin, losartan Recent encounter dx: 04/17/23: Discharge - [facility], [facility], [facility], [id number], [id number] / 01 Recent studies: 04/24/23: PACER JESUS DUAL CHAMBER WO REPROG by Montrell Bee MD ... [+] MEASUREMENTS Atrial Sensing - P wave: 0.8 mV - atrial flutter Atrial Capture: MATHEW atrial flutter Atrial Lead Impedance: 399 ohms Recent notes: 04/25/23: Progress Notes - Cardiology Critical Care Progress Note by Charity Payne NP ... [+] Atrial Sensing - P wave: 0.8 mV - atrial flutter ... [+] Atrial Capture: MATHEW atrial flutter ... [+] Underlying rhythm: Atrial Flutter with CHB, escape at 43 bpm Cerebral edema 04/11/2024 Overview (12/29/2024): AI Summary: As of 04/11/24: Cerebral edema was mentioned as an active problem on 04/11/2024. Cerebral edema was also mentioned on 02/12/2024, 04/17/2023 and 06/01/2021. 07/16/24: Glu 98 mg/dL On meds: Camphor / Menthol, aspirin Recent notes: 04/11/24: Progress Notes - Medicare Wellness Visit by Saúl Robison MD ... [+] ? Cerebral edema (HC) G93.6 02/12/24: Progress Notes by Abraham Chang MD ... [+] ? Cerebral edema (HC) 04/17/23: ED Provider Note by Ronen Bryan MD ... [+] Cerebral edema (HC) Thrombus of left atrial appendage 04/20/2023 LBBB [...] aortic dissection repair. Hypertrophic obstructive cardiomyopathy 09/08/19 14 Overview (09/08/2013): S/p septal myomectomy at time [...] and transverse arch with a 32-mm Hemashield viejas arch graft including reimplantation and repair of [...] without Heart Failure 02/24/2014 Overview (09/12/2007): cardiomyopathy Obstructive hydrocephalus Encounters Date Type Department Care Team Description 05/13/2025 11:45 AM DIRECTOR PATIENT Ancillary Procedure [facility] [address] [place] [address] Arrived 05/13/2025 11:20 AM DIRECTOR PATIENT Office Visit [facility] [address] [place] [address] Saúl Robison MD Cough (Wet unproductive cough, started about 2 weeks ago, severe SOB); Fatigue (Extremely tired, dizziness) 05/13/2025 Travel 05/12/2025 Nurse Triage [facility] [address] [place] [address] Saúl Robison MD Shortness Of Breath 03/12/2025 [facility] [address] [place] [address] [place] [phone] Abraham Chang MD Health Maintenance Update (October resume BB) 03/06/2025 Refill [facility] [address] [place] [address] Saúl Robison MD Refill Request (Amoxicillin) 02/16/[address] [place] [address] Saúl Robison MD 02/13/2025 3:30 PM CDT Office Visit [facility] [address] [place] [address] [place] [address] Abraham Chang MD CV General Cardiology Est (Annual f/u, review echo and CTA done 02/02, was in the hosp for a fall on 02/11, discuss meds, BP. ) 02/13/2025 Travel from Last 3 Months Immunizations Immunization Administration Dates Next Due AMB INFLUENZA IIV3 (AGE 65+ YRS) PF (Flu Clinic Only) 04/22/2019 COVID-19 vaccine ([employer] NTech 30mcg/0.3mL) PF, MDV 09/25/2020,09/04/2020 Hepatitis B [...] 05/08/2018 Td (Age >=7 Years) 04/27/1999 Tdap 02/11/2025,05/03/2009 Zoster (Zostavax-ZVL, live) 06/17/2014 Family History Medical [...] isolated from those around you? 0 04/30/2023 Alcohol Use Answer Date Recorded How often do you have a drink containing alcohol ? 1 05/13/2025 How many drinks containing a lcohol do you have on a typical day when you are drinking? 0 05/13/2025 How often do you have five or more drinks on one occasion? 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 file Not on file Not on f ile Obstetrics History Last Filed Vital Signs Vital Sign Reading Time Taken Comments Blood Pressure 132/65 05/13/2025 11:41 AM DIRECTOR PATIENT Pulse 89 05/13/2025 11:28 AM DIRECTOR PATIENT Temperature 36.9 C (98.4 F) 12/27/2024 1:49 PM CDT Respiratory Rate 16 12/27/2024 1:49 PM CDT Oxygen Saturation 99% 05/13/2025 11: 28 AM DIRECTOR PATIENT Inhaled Oxygen Concentration - - Weight 74.3 kg (163 lb 12.8 oz) 025 11:28 AM DIRECTOR PATIENT Height 182.9 cm (6' 0.01) 02/13/2025 3:15 PM CD T Body Mass Index 22.21 02/13/2025 3:15 PM CDT Plan of Treatment Upcoming Encounters Date Type Department Care Team (Late st Contact Info) Description 05/19/2025 2:30 PM DIRECTOR PATIENT Office Visit [facility] [address] [facility] [address] [place] [address] Sofiya Umaña PA [address] [facility] [address] [place] [address] 08/11/2025 10:30 AM DIRECTOR PATIENT Cardiac Device Check [facility] [address] [place] [id number] 11/10/2025 11:00 AM CDT Ancillary Procedure [facility] - Emani Shabazz [address] [place] [address] Dr [address] [place], [place] [id number] Health Maintenance Due Date Last Done Comments RSV vaccine for adults or (1 - Risk 50-74 years 1-dose series) 02/24/2002 Zoster (shingles) series for age 50+ (2 of 3) 08/12/2014 06/17/2014 Influenza Vaccine (#1) 2025 , 06/29/2021, 04/22/2019, Additional history exists Depression screening for age 12+ 04/11/2025 04/11/2024, 08/02/2022, 08/01/2022, Additional history exists Medicare Wellness for age 65+ 04/12/2025 04/11/2024, 08/01/2022 BMI (ht and wt on same day) for age 18+ 02/13/2026 02/13/2025, 09/01/2024, 04/11/2024, Additional history exists Fecal testing sDNA-FIT ([place] guard) for age 45-75 05/08/2027 05/08/2024 Lipids for age 45-75 04/11/2029 04/11/2024, 07/17/2023, 08/01/2022, Additional history exists Tetanus booster 02/11/2035 02/11/2025, 08/2008, 04/27/1999 Hepatitis B series for 19+ Completed 04/23, 10/11/2001, 09/10/2001 Pneumococcal series for age 50+ Completed 06/22/2020, 05/08/2018, 05/03/2009 Hepatitis C screening for ag e 18-79 Completed 08/01/2022 Medical Devices Implanted Type Area Compliance Attorney Device Identifier Shelf Expiration Date Model / Serial / Lot Graft Hemashield 4branch 77-81-72-10-10mm [place] - [id number] Implanted:Qty: 1 on 09/08/2013 by Derek Marshall MD at [facility] N/A: Aortic Arch [employer] 07/01/2016 [id number] / / [id number] Dura Neuro 3x3in Duragen Plusnon-Sut - [id number] Implanted:Qty: 1 on 05/20/2021 by Mikey Goodman MD at [facility] Cranium Integra [employer] Jessica 12/30/2023 DP-1033 / / [id number] Dura Neuro 5ml Duraseal - [id number] Implanted:Qty: 1 on 05/20/2021 by Mikey Goodman MD at [facility] [employer]ium [employer] Jessica 08/29/2022 / / [id number] Screw Neuro 4mm Matrixneuro Slf Drill Titnm - [id number] Implanted:Qty: 6 on 05/20/2021 by Mikey Goodman MD at [facility] Cranium Geena And Geena Depuy CMF [id number] 4.01 / / Plate Facial 12mm 2hole Synthes Stra - [id number] Implanted:Qty: 3 on 05/20/2021 by Mikey Goodman MD at [facility] Cranium J And Geena Penny CMF [id number] / / Procedures Procedure Name Priority Date/Time Associated Diagnosis Comments XR CHEST 2 VIEWS PA AND LATERAL Routine 05/13/2025 11:53 AM DIRECTOR PATIENT SOB (shortness of breath) SDNA-FIT EXTERNAL (COLOGUARD) Routine 05/08/2024 9:52 AM DIRECTOR PATIENT Screen for colon cancer LIPID PANEL W REFLEX MEASURED LDL Routine 04/11/2024 11:08 AM CDT Hyperlipidemia, unspecified hyperlipidemia type LC HCV ANTIBODY RFX TO QUANT PCR Routine 08/01/2022 3:43 PM DIRECTOR PATIENT Need for hepatitis C screening test from Last 3 Months or Most Recently Relevant to Health Maintenance Results * XR CHEST 2 VIEWS PA AND LATERAL (05/13/2025 11:53 AM DIRECTOR PATIENT) Anatomical Region Laterality Modality CHEST, THORAX, Lung, HEART Compu deandre Radiography 05/13/2025 12:1 0 PM DIRECTOR PATIENT Narrative 05/13/2025 12:10 PM DIRECTOR PATIENT For Patients: As a result of the Cures Act, medical imaging exams and procedure reports are released immediately into your electronic medical record. You may view this report before your referring provider. If you have questions, please contact your health care provider. INDICATION: Shortness of breath TECHNIQUE: Chest radiograph 2 views on 3 images COMPARISON: 04/24/2023 FINDINGS: Mediastinum: The central pulmonary arteries are enlarged and likely due to pulmonary hypertension. Previous median sternotomy and coronary artery bypass grafting (CABG) noted. Left atrial appendage occlusive device is noted. Moderate, stable cardiomegaly is noted. There is a left cardiac pacer present with leads in the right atrium and right ventricle. Lung: Mild consolidation is present in the left lung base with small left pleural effusion and pleural thickening. No pneumothorax is identified. Bone and Soft tissue: Unremarkable for age. IMPRESSIONS: 1. Mild consolidation is present in the left lung base with small left pleural effusion and pleural thickening. 2. Moderate, stable cardiomegaly is noted. 3. The central pulmonary arteries are enlarged and likely due to pulmonary hypertension. Dictated by Sascha Hernandez MD @ 05/13/2025 12:10:09 PM Dictated by: Sascha Hernandez MD @ 05/13/2025 12:10:13 (Electronically Signed) Procedure Note Sascha Hernandez MD - 05/13/2025 For Patients: As a result of the Century Cures Act, medical imagingexams and procedure reports are released immediately into your electronicmedical record. You may view this report before your referring provider.If you have questions, please contact your health care provider. INDICATION: Shortness of breath TECHNIQUE: Chest radiograph 2 views on 3 images COMPARISON: 04/24/2023 FINDINGS: Mediastinum: The central pulmonary arteries are enlarged and likely due topulmonary hypertension. Previous median sternotomy and coronary arterybypass grafting (CABG) noted. Left atrial appendage occlusive device isnoted. Moderate, stable cardiomegaly is noted. There is a left cardiacpacer present with leads in the right atrium and right ventricle. Lung: Mild consolidation is present in the left lung base with small leftpleural effusion and pleural thickening. No pneumothorax is identified. Bone and Soft tissue: Unremarkable for age. IMPRESSIONS: 1. Mild consolidation is present in the left lung base with small leftpleural effusion and pleural thickening. 2. Moderate, stable cardiomegaly is noted. 3. The central pulmonary arteries are enlarged and likely due to pulmonaryhypertension. Dictated by Sascha Hernandez MD @ 05/13/2025 12:10:09 PM Dictated by: Sascha Hernandez MD @ 05/13/2025 12:10:13 (Electronically Signed) us Saúl Robison MD GENERAL IMAGING Final Result * SDNA-FIT EXTERNAL (COLOGUARD) (05/08/2024 9:52 AM DIRECTOR PATIENT) NONINV COLON CA DNA+OCC BLD SCRN STL-IMP Negative Negative 05/15/2024 8:26 PM DIRECTOR PATIENT [facility] [facility] (CLIA #:[id number]) Comment: NEGATIVE TEST RESULT. A negative Cologuard [...] screened with both Cologuard and colonoscopy. (Gab Palma al, N Engl J Med 2014;370(14):9641-7932) The normal value (reference range) for this assay is negative. COLOGUARD RE-SCREENING RECOMMENDATION: Periodic colorectal cancer screening is an important part of preventive healthcare for asymptomatic individuals at average risk for colorectal cancer. Following a negative Cologuard result, the [place] Cancer Society and U.S. Multi-Society Task Force screening guidelines recommend a Cologuard re-screening interval of 3 years. References: [place] [employer] Guideline for Colorectal Cancer Screening: https://www.cancer.org/cancer/uhmbj-qdpvgg-qtzyxg/suehyzmte-dyqseqkeb-vyzxhuo/ac s-rec ommendations.html.; Nito DK, Albert PAUL, Antonette SeayK, Colorectal Cancer Screening: Recommendations for Physicians and Patients from the U.S. Multi-Society Task Force on Colorectal Cancer Screening , Am J Gastroenterology 2017; 112:3598-8050. TEST DESCRIPTION: Composite algorithmic analysis of stool [...] screened with both Cologuard and colonoscopy. (Gab Palma al, N Engl J Med 2014;370(14):8360-6155.) Cologuard may produce a false negative or false positive result (no colorectal cancer or precancerous polyp present at colonoscopy follow up). A negative Cologuard test result does not guarantee the absence of CRC or advanced adenoma (pre-cancer). The current Cologuard screening interval is every 3 years. ([employer] Cancer Society and U.S. Multi-Society Task Force). Cologuard performance data in a 10,000 patient pivotal study using colonoscopy as the reference method can be accessed at the following location: www.Ogone.Programeter/results. Additional description of the Cologuard test process, warnings and precautions can be found at www.Fonix.Programeter. Stool specimen (specimen) (Rectum) 05/08/2024 9:52 AM DIRECTOR PATIENT 05/09/2024 11:19 AM DIRECTOR PATIENT Saúl Robison MD URINE Final Result [facility] (CLIA #:[id number]) [place] [address], * LIPID PANEL W REFLEX MEASURED LDL [...] factors. LDL-C is now calculated using the Annika calculation, which is a validated novel method providing better accuracy than the Friedewald equation in the estimation of LDL-C. Demetris COHEN et al. ELDON. 2013;310(19): 3169-3270 (http://education.Car Throttle.Programeter/faq/WSH771) CHOL/HDLC RATIO 2.3 <5.0 (calc) [facility] NON HDL CHOLESTEROL 62 <130 mg/dL (calc) [facility] Comment: For patients with diabetes plus 1 major ASCVD risk factor, treating to a non-HDL-C goal of <100 mg/dL (LDL-C of <70 mg/dL) is considered a therapeutic option. Blood BLOOD SPECIMEN / Unknown 04/11/2024 11:08 AM CDT 04/11/2024 11:08 AM CDT us Saúl Robison MD CHEMISTRY Final Result Performing Organization Address City/[facility]/ZIP Co de Phone Number [employer] [facility] [address] [place] [address], [facility] [address] [place] [phone] * LC HCV ANTIBODY RFX TO QUANT PCR (08/01/2022 3:43 PM DIRECTOR PATIENT) [facility] HCV Ab 0.2 0.0 - 0.9 s/co ratio 08/04/2022 10:06 PM DIRECTOR PATIENT [facility] Blood BLOOD SPECIMEN / Unknown Venipuncture / Unknown 08/01/2022 3:43 PM DIRECTOR PATIENT 08/01/2022 3:45 PM DIRECTOR PATIENT Narrative [facility] - 08/04/2022 10:06 PM DIRECTOR PATIENT Performed at: [address] [place] [id number] Sheep And Wheat Farmer: Kali Noyola MD, Phone: [phone] us Saúl Robison MD LABORATORY Final Result [facility] ([facility]) [address] [place] [id number], from Last 3 Months or Most Recently Relevant to Health Maintenance Insurance MEDICARE PART B HB ONLY MEDICARE PART A HB ONLY [facility] [place] [place] [facility] MR PB ONLY [facility] [place] [place] BL[facility] HB ONLY 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
--- OUTSIDE RECORDS SUMMARY | 2025-05-14 12:14 | XMS_ITS | Clinical Summary ---
Author Organization [facility] Address [address] [place] [address] Care Team Providers Care Application Chemist Name Role Phone Elsewhere, Pcp Primary Care Provider Unavailabl e Source Comments Patient records contain information from all sites at [facility]. For routine questions regarding patient records, call [phone] during business hours, M-F 8:00 AM - 5:00 PM Central Time. 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 Serotonin release assay sent 06/21 and pending at this time Melatonin Edema, suggestive of allergic reaction, i.e., lip, tongue, or throat swelling High 09/20/2013 Montelukast Other (see comments),Headache 06/06/2010 Nitroglycerin Other (see comments) 02/26/2014 Not true allergy. Contraindicated in HYPERTROPHIC OBSTRUCTIVE CARDIOMYOPATHY. Medications aspirin [address] tablet Take 81 mg by mouth daily. with a meal 09/01/2024 Active atorvastatin (Lipitor) 40 mg tablet Take 40 mg by mouth at bedtime. 04/11/2024 Active docusate sodium (Colace) 100 mg capsule Take 100 mg by mouth 2 (two) times a day. Active Breo Ellipta 100-25 mcg/dose inhaler Inhale 1 puff daily. 09/02/2024 Active losartan (Cozaar) 25 mg tablet Take 12.5 mg by mouth daily. 02/05/2025 Active pantoprazole (Protonix) 40 mg EC tablet Take 40 mg by mouth daily. 09/01/2024 Active sennosides-docu sate sodium (Senokot-S) 8.6-50 mg per tablet Take 1 tablet by mouth daily. 06/16/2023 Active acetaminophen (TylenoL) 500 mg tablet Take 2 tablets (1,000 mg total) by mouth every 6 (six) hours for 3 days. 02/12/2025 Active oxyCODONE (Roxicodone) 5 mg immediate release tabletIndicatio ns:Acute Pain Take 1 tablet (5 mg total) by mouth every 6 (six) hours as needed for pain. 8 tablet 02/12/2025 2:47 PM CDT 02/12/2025 Active sennosides (Senokot) 8.6 mg tablet Take 1 tablet (8.6 mg total) by mouth at bedtime as needed for constipation . 100 tablet 02/12/2025 Active Active Problems Problem Noted Date Diagnosed Date Laceration Ear Initial Right 02/11/2025 Asthma 02/11/2025 Overview (02/11/2025): mild Hyperlipidemia 02/11/2025 Dissection Of Descending Thoracic Aorta 02/12/20 Overview (02/11/2025): chest CTA 02/02/2025 shows 51 x 49 mm with false lumen of 34 mm (48 x 47 mm, 34 mm FL in 2022). 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, [facility], H4094, H4094 / 01 Recent studies: 04/24/23: [...] Flutter with CHB, escape at 43 bpm Cellulitis 12/29/2024 Pacemaker Cardiac Status Post 12/29/2024 Overview (02/11/2025): - atrioventricular alexi ablation April 2023 (Dr. Bee, [facility]) Bundle Branch Block Left 04/20/2023 Thrombus Intracardiac 04/20/2023 Overview (02/11/2025): Previous SHERRY thombus 02/02/25 echo - Watchman device in place Chronic Obstructive Pulmonary Disease 08/01/2022 Depression 09/06/2021 Dysphagia 09/06/2021 Atrial Fibrillation Paroxysmal 12/30/2014 Overview (02/11/2025): MAZE procedure Hypertension Essential Primary 11/25/2014 Cardiomyopathy Obstructive Hypertrophic 09/08/19 14 Overview (02/11/2025): S/p septal myomectomy at time of emergent Type A aortic dissection repair with Dr. 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 Laceration Ear Initial Right (Primary Dx) 02/18/2025 12:00 PM CDT Ancillary Procedure Department of Plastic and Reconstructive Surgery 02/16/2025 Clinical Communication Division of Plastic Surgery in [place], [place] [address] [place] [phone] Anuel Ojeda M.B.B.S. 02/13/2025 Clinical Communication Division of Plastic Surgery in [place], [place] [address] [place] [phone] Anuel Ojeda M.B.B.S. Communication 02/11/2025 2:44 PM CDT Anesthesia Event [facility] [address] [place] [phone] Arsen Wilder M.D. 02/11/2025 2:37 PM CDT - 02/11/2025 4:41 PM CDT Surgery [facility] OR [address] [place] [phone] Anuel Ojeda M.B.B.S. DEBRIDEMENT AND IRRIGATION right ear, full thickness skin graft 02/11/2025 11:55 AM CDT Ancillary Procedure Department of Plastic and Reconstructive Surgery 02/11/2025 9:40 AM CDT - 02/12/2025 2:50 PM CDT Hospital Encounter [facility], [facility], Fifth Floor [address] [place] [phone] Terri Dillard, BUSINESS AND SERVICES INSTRUCTOR, C.N.P., D.N.P., M.S.N. Anuel Ojeda M.B.B.S. Laceration Ear Initial Right (Primary Dx); Encounter For Checking And Testing Of Cardiac Pacemaker Pulse Generator Battery Discharge Disposition: Home or Self Care 02/11/2025 6:05 AM CDT Ancillary Procedure Department of Nursing 02/11/2025 5:08 AM CDT - 02/11/2025 7:48 AM CDT Emergency [facility] [address] [place] [phone] Randall Vargas M.D. Laceration Ear Initial Right (Primary Dx) Discharge Disposition: Acute Care Hospital 02/11/2025 Orders Only Division of Plastic Surgery in [place], [place] [address] [place] [phone] Alie Leahy M.D. 02/11/2025 Ancillary Procedure Department of Plastic and Reconstructive Surgery from Last 3 Months Immunizations Immunization Administration Dates Next Due Tdap 02/11/2025 Social History Tobacco Use Types Packs/Day Years Used Date Smoking Tobacco: Never Smokeless Tobacco: Never Tobacco Cessation:Counseling Given: Not Answered Alcohol Use Standard Drinks/Week Comments Not Currently 0 (1 standard drink = 0.6 oz pur e alcohol) Humiliation, Afraid, Rape, and Kick questionnair e Answer Date Recorded Within the last year, have y ou been afraid of your partner or ex-partner? No 02/11/2025 Within the last year, have y ou been humiliated or emotionally abused in other ways by your partner or ex-partner? No Within the last year, have y ou been kicked, hit, slapped, or otherwise physically hurt by your partner or ex-partner? No 02/11/2025 Within the last year, have y ou been raped or forced to have any kind of sexual activity by your partner or ex-partner? No 02/11/2025 Hunger Vital Sign Answer Date Recorded Within the past 12 months, y ou worried that your food would run out before you got the money to buy more. Never true 02/12/20 25 Within the past 12 months, t he food you bought just didn't last and you didn't have money to get more. Never true 02/11/2025 PRAPARE - Transportation Answer Date Re corded In the past 12 months, has l ack of transportation kept you from medical appointments or from getting medications? No 01/30 In the past 12 months, has l ack of transportation kept you from meetings, work, or from getting things needed for daily living? No 02/11/2025 [facility] Utilities Answer Date Recorded In the past 12 months has th e electric, gas, oil, or water company threatened to shut off services in your home? No 02/11/2025 Housing Stability Answer Date Recorded What is your living situation today? I have a [facility] place to live 02/11/2025 Sex and Gender Information Value Date Recorded Sex Assigned at Not on file Legal Sex Male 5:04 AM CDT Gender Identity Not on file Sexual Orientation Not on file Last Filed Vital Signs Vital Sign Reading Time Taken Comments Blood Pressure 126/54 02/12/2025 2:14 PM CDT Pulse 70 02/12/2025 2:14 PM CDT Temperature 36.4 C (97.5 F) 02/12/2025 2:14 PM CDT Respiratory Rate 15 02/12/2025 2:14 PM CDT Oxygen Saturation 99% 02/12/2025 2:14 PM CDT Inhaled Oxygen Concentration - - Weight 72.5 kg (159 lb 13.3 oz) 02/12/2025 2:24 AM CDT Height - - Body Mass Index - - Plan of Treatment Health Maintenance Due Date Last Done Comments CT Colonography 1950 Colonoscopy 1950 FIT 1950 Hepatitis C Screening 1950 Office Visit for Blood Pressure Check / Re-check 1950 RSV vaccine - (32-36 weeks) or 50+ years (1 - Risk 50-74 years 1-dose series) 02/24/2002 Zoster Vaccines (2 of 3) 08/12/2014 06/17/2014 Depression Screening (Annual PHQ-2) 07/02/2024 COVID-19 Vaccine ( season) 2025 03/06/2024, 04/04/2023, 12/22/2022, Additional history exists Influenza Vaccine (#1) 2025 , 05/11/2023, 04/11/2022, Additional history exists Creatinine Level (Kidney Function Test) 02/11/2026 02/11/2025, 02/11/2025, 07/16/2024, Additional history exists Potassium Level 02/11/2026 02/11/2025, 01/30, 07/16/2024, Additional history exists Sodium Level 02/11/2026 02/11/2025, 01/30, 07/16/2024, Additional history exists Cologuard 05/08/2027 05/08/2024 Colorectal Cancer Screening 05/08/2027 Fasting Glucose for Diabetes Screening 02/12/2028 02/11/2025, 02/11/2025, 07/16/2024, Additional history exists Lipid (Cholesterol) Screening 07/17/2028 07/17/2023, 08/01/2022, 10/14/2021, Additional history exists DTaP,Tdap,and Td Vaccines (3 - Td or Tdap) 02/11/2035 02/11/2025, 05/03/2009 Pneumococcal vaccine (50+ years) Completed 06/22/2020, 05/08/2018, 05/03/2009 Fall Risk Screen (Annual) Completed 02/11/2025 IPV Vaccines Aged Out No longer eligi ble based on patient's age to complete this topic Medical Devices Implanted Type Area Rn Hedis Device Identifier Shelf Expiration Date Model / Serial / Lot Medtronic 3830 Selectsecure [id number] Implanted:04/23 (Quantity not on file) Cardiac Lead Medtronic 3830 SELECTSECURE / [id number] / Medtronic 5076 Capsurefix Novus Mri [id number] Implanted:04/23 (Quantity not on file) Cardiac Lead Medtronic 5076 CAPSUREFIX NOVUS MRI / [id number] / Medtronic Klever Xt Dr Lai [id number] Implanted:04/23 (Quantity not on file) Pacemaker Medtronic KLEVER XT DR LAI [id number] / [id number] / Procedures Procedure Name Priority Date/Time Associated Diagnosis Comments PLASTIC AND RECON SURGERY IMAGE EXAM Routine 02/18/2025 12:00 PM CDT CBC WITHOUT DIFFERENTIAL, B Routine 02/11/2025 8:17 PM CDT BASIC METABOLIC PANEL, S/P Routine 02/11/2025 8:17 PM CDT PACER PERIOPERATIVE INTERROGATION Routine 02/11/2025 7:07 PM CDT Encounter For Checking And Testing Of Cardiac Pacemaker Pulse Generator Battery LDA ANE ENDOTRACHEAL AIRWAY Routine 02/11/2025 2:58 PM CDT DEBRIDEMENT AND IRRIGATION HEAD 02/11/2025 2:24 PM CDT Laceration Ear Initial Right PACER PERIOPERATIVE INTERROGATION Routine 02/11/2025 1:25 PM CDT TYPE AND SCREEN STAT 02/11/2025 12:26 PM CDT PROTHROMBIN TIME (PT), P STAT 02/11/2025 12:26 PM CDT PLASTIC AND RECON SURGERY IMAGE EXAM Routine 02/11/2025 11:55 AM CDT COMPREHENSIVE METABOLIC PANEL, S/P STAT 02/11/2025 6:37 AM CDT CBC WITH DIFFERENTIAL, B STAT 02/11/2025 6:[address] CHEST WITHOUT IV CONTRAST RAD - Semiurgent (Fast; most ED patients; some inpatients) 02/11/2025 6:[address] CERVICAL SPINE WITHOUT IV CONTRAST RAD - Semiurgent (Fast; most ED patients; some inpatients) 02/11/2025 6:[address] HEAD WITHOUT IV CONTRAST RAD - Semiurgent (Fast; most ED patients; some inpatients) 02/11/2025 6:30 AM CDT NURSING IMAGE EXAM Routine 02/11/2025 6: 04 AM CDT PLASTIC AND RECON SURGERY IMAGE EXAM Routine 02/11/2025 12:00 AM CDT from Last 3 Months Results * Ears-Plastic And Recon Surgery Image Exam (02/18/2025 12:00 PM CDT) Only the most recent of3 resultswithin the time period is included. Narrative IIMS - 02/19/2025 8:44 AM CDT This order has been created and auto-finalized to support the import of images acquired without order. The clinical documentation to support these images can be found on the encounter that produced images. us Provider Not In System IMG NON RAD IMAGING PROCE DURES Final Result [facility] NA * (ABNORMAL) CBC without Differential (02/11/2025 8:17 PM CDT) Hemoglobin 11.6(L) 13.2 - 16.6 g/dL 02/11/2025 8:49 PM CDT DTL Hematocrit 36.8(L) 38.3 - 48.6 % 02/11/2025 8:49 PM CDT DTL Erythrocytes 4.41 4.35 - 5.65 x10(12)/L 02/11/2025 8:49 PM CDT DTL MCV 83.4 78.2 - 97.9 fL 02/11/2025 8:49 PM CDT DTL RBC Distrib Width 17.1(H) 11.8 - 14.5 % 02/11/2025 8:49 PM CDT DTL Platelet Count 127(L) 135 - 317 x10(9)/L 02/11/2025 9:04 PM CDT DTL Leukocytes 7.5 3.4 - 9.6 x10(9)/L 02/11/2025 9:04 PM CDT DTL Blood (Blood, Venous) 02/11/2025 8:17 PM CDT 02/11/2025 8:39 PM CDT us Alie Leahy M.D. LAB BLOOD ADD-ON Final Re sult [facility] [address] [place] [address], [facility] DTL [facility] [address] [place] [address] * (ABNORMAL) Basic Metabolic Panel (02/11/2025 8:17 PM CDT) Potassium, S 4.5 3.6 - 5.2 mmol/L 02/11/2025 9:07 PM CDT DTL Sodium, S 136 135 - 145 mmol/L 02/11/2025 9:07 PM CDT DTL Chloride, S 105 98 - 107 mmol/L 02/11/2025 9:07 PM CDT DTL Bicarbonate, S 20(L) 22 - 29 mmol/L 02/11/2025 9:07 PM CDT DTL Anion Gap 11 7 - 15 02/11/2025 9:07 PM CDT DTL BUN (Blood Urea Nitrogen), S 20 8 - 24 mg/dL 02/11/2025 9:07 PM CDT DTL Creatinine 0.77 0.74 - 1.35 mg/dL 02/11/2025 9:07 PM CDT DTL Estimated GFR (eGFR) >90 >=60 mL/min/BSA 02/11/2025 9:07 PM CDT DTL Comment: Estimated GFR calculated using the 2020 CKD_EPI creatinine equation. Calcium, Total, S 8.7(L) 8.8 - 10.2 mg/dL 02/11/2025 9:07 PM CDT DTL Glucose, S 168(H) 70 - 140 mg/dL 02/11/2025 9:07 PM CDT DTL Blood (Blood, Venous) 02/11/2025 8:17 PM CDT 02/11/2025 8:39 PM CDT us Alie Leahy M.D. LAB BLOOD ADD-ON Final Re sult [facility] [address] [place] [address], [facility] DTL [facility] [address] [place] [address] * PACER PERIOPERATIVE INTERROGATION (02/11/2025 7:07 PM CDT) Only the most recent of2 resultswithin the time period is included. Date Time Interrogation Session [id number] [facility] Implantable Pulse Generator Rn Hedis Medtronic [facility] Implantable Pulse Generator Type Pacemaker [facility] Implantable Pulse Generator Model Klever XT DR MRI [id number] [facility] Implantable Pulse Generator Serial Number [id number] [facility] Implantable Pulse Generator Implant Date [id number] [facility] Battery Voltage 3.020 [facility] Battery SOCIAL MEDIA SR STRATEGY MANAGER Trigger 2.630 [facility] Battery Status OK [facility] [place] Statistic RA Percent Paced 0.03 [facility] [place] Statistic RV Percent Paced 97.91 [facility] Atrial Tachy Statistic AT/AF [place] Percent 0.01 [facility] Lead Channel Sensing Intrinsic Amplitude 0.400 [facility] Lead Channel Impedance Value 437 [facility] Lead Channel Setting Sensing Sensitivity 0.90 [facility] Lead Channel Impedance Value 494 [facility] Lead Channel Pacing Threshold Amplitude 0.750 [facility] Lead Channel Pacing Threshold Pulse Width 0.4 [facility] Lead Channel Measurements Date and Time [id number] [facility] Lead Channel Setting Pacing Amplitude 2.000 [facility] Lead Channel Setting Pacing Pulse Width 0.4 [facility] [place] Setting Mode (NBG Code) VVIR [facility] [place] Setting Lower Rate Limit 70 [facility] [place] Setting Maximum Sensor Rate 130 [facility] Zone Setting Type Category VT Monitor [facility] Murj Rate 1 150 [facility] Zone Setting Status Monitor [facility] Murj Zone ID 0 [facility] Implantable Lead Rn Hedis Medtronic [facility] Implantable Lead Model 3830 SelectSecure [facility] Implantable Lead Location Right Ventricle [facility] Implantable Lead Connection Status Connected [facility] Implantable Lead Serial Number [id number] [facility] Implantable Lead Implant Date [id number] [facility] Implantable Lead Special Function Lead length: 69.00 cm [facility] Implantable Lead Rn Hedis Medtronic [facility] Implantable Lead Model 5076 CapsureFix Novus MRI [facility] Implantable Lead Location Right Atrium [facility] Implantable Lead Connection Status Connected [facility] Implantable Lead Serial Number [id number] [facility] Implantable Lead Implant Date [id number] [facility] Implantable Lead Special Function Lead length: 52.00 cm [facility] Anatomical Region Laterality Modality Other 02/17/2025 12:1 3 AM CDT Impressions 02/17/2025 12:13 AM CDT Encounter Impression: Title: Perioperative Check * Perioperative device interrogation performed after surgery. * Sensing, impedance and thresholds reviewed and tested * Presenting Rhythm: BALANCE WHEEL FACER at 80 bpm w/ occasional PVCs. * Underlying rhythm: A-fib w/ continued BALANCE WHEEL FACER at 30 and occasional PVCs. * Heart Rate Histograms reviewed * Pacing and Detection Parameters were evaluated * Device reprogrammed: Yes, returned to pre-op settings, VVIR 70-130 bpm. Plan: This patient underwent device interrogation. I agree that the device interrogation was medically indicated to provide appropriate care and continue routine device interrogations as indicated. Encounter Summary: This report includes 1 transmission that was received on 2025-02-11. Battery, lead impedance, sensing amplitude and pacing threshold data was reviewed. Narrative Procedure Note Marbella Mayes M.D. - 02/17/2025 IMPRESSION: Encounter Impression: Title: Perioperative Check * Perioperative device interrogation performed after surgery. * Sensing, impedance and thresholds reviewed and tested * Presenting Rhythm: BALANCE WHEEL FACER at 80 bpm w/ occasional PVCs. * Underlying rhythm: A-fib w/ continued BALANCE WHEEL FACER at 30 and occasional PVCs. * Heart Rate Histograms reviewed * Pacing and Detection Parameters were evaluated * Device reprogrammed: Yes, returned to pre-op settings, VVIR 70-130 bpm. Plan: This patient underwent device interrogation. I agree that the deviceinterrogation was medically indicated to provide appropriate care andcontinue routine device interrogations as indicated. Encounter Summary: This report includes 1 transmission that was receivedon 2025-02-11. Battery, lead impedance, sensing amplitude and pacingthreshold data was reviewed. us Marbella Mayes M.D. CV IMPLANTABLE CARDIAC DEVICE Final Result * LDA ANE ENDOTRACHEAL AIRWAY (02/11/2025 2:58 PM CDT) Narrative Talia Collazo APRN, CRNA, MONTEZ - 02/11/2025 2:58 PM CDT Talia Collazo APRN, CRNA, DNAMilana 02/11/2025 3:12 PM Airway Date/Time: 02/11/2025 2:58 PM Performed by: Talia Collazo APRN, CRNA DNAP Authorized by: Arsen Wilder M.D. Patient location during procedure: OR / Procedure Area PROCEDURE DETAILS: Mask difficulty assessment: easy mask Final airway type: video laryngoscope Laryngeal Manipulation: no ETT location: oral VL device: glide scope [place] scope blade size: 4 Tube size: 7.5 ETT distance at teeth/gum: 23 Oral tube type: standard ETT Cuffed: yes Number of attempt to successful placement: 1 Airway confirmation: bilateral breath sounds, positive ETCO2 and bilateral chest rise Other previous techniques attempted: none PRE PROCEDURE DETAILS: Pre evaluation for airway management: procedure Urgency: elective Preop assessment of probable difficulty: questionable / suspicious difficult airway Preoxygenation: bag valve mask SEDATION / ANESTHESIA Anesthesia method: anesthesia POST PROCEDURE DETAILS: Procedure outcome: successful Notable Events: no complications Arsen Wilder M.D. ANESTHESIA ORDERABLES Michell l Result * (ABNORMAL) Prothrombin Time (PT) (02/11/2025 12:26 PM CDT) [facility] Prothrombin Time, P 14.3(H) 9.4 - 12.5 sec 02/11/2025 12:36 PM CDT [facility] INR 1.3 0.9 - 1.1 02/11/2025 12:36 PM CDT [facility] Comment: ----ADDITIONAL INFORMATION---- Standard intensity warfarin therapeutic range: 2.0 to 3.0 High intensity warfarin therapeutic range: 2.5 to 3.5 Blood (Blood, Venous) 02/11/2025 12:26 PM CDT 02/11/2025 12:29 PM CDT Terri Dillard APRN, C.N.P., D.N.P., M.S.N. LAB BLOOD ADD-ON Final Result [facility] [address] [place] [address], [facility] [address] [place] [address] * Type and Screen (with Reflex Antibody ID) (02/11/2025 12:26 PM CDT) Pathologist [facility] ABORh O Pos Not applicable 02/11/2025 3:07 PM CDT STRM Antibody Screen Negative Negative 02/11/2025 3:23 PM CDT STRM Type & Screen Expiration 02/14/2025 23:59 02/11/2025 3:07 PM CDT STRM Testing Location Marry DEFAULT 02/11/2025 2:45 PM CDT STRM Blood (Blood, Venous) 02/11/2025 12:26 PM CDT 02/11/2025 2:45 PM CDT us Terri Dillard APRN, C.N.P. , D.N.P., M.S.N. LAB BLOOD BANK TEST ORDERABLES Final Result [facility] [address] [place] [address], [facility] [address] [place] [address] * (ABNORMAL) CBC with Differential, Blood (02/11/2025 6:37 AM CDT) [facility] Hemoglobin 12.1(L) 13.2 - 16.6 g/dL 02/11/2025 6:53 AM CDT [facility] Hematocrit 38.2(L) 38.3 - 48.6 % 02/11/2025 6:53 AM CDT [facility] Erythrocytes 4.43 4.35 - 5.65 x10(12)/L 02/11/2025 6:53 AM CDT [facility] MCV 86.2 78.2 - 97.9 fL 02/11/2025 6:53 AM CDT [facility] RBC Distrib Width 17.0(H) 11.8 - 14.5 % 02/11/2025 6:53 AM CDT [facility] Platelet Count 127(L) 135 - 317 x10(9)/L 02/11/2025 6:53 AM CDT [facility] Leukocytes 6.0 3.4 - 9.6 x10(9)/L 02/11/2025 6:53 AM CDT [facility] Neutrophils 4.18 1.56 - 6.45 x10(9)/L 02/11/2025 6:53 AM CDT [facility] Lymphocytes 0.96 0.95 - 3.07 x10(9)/L 02/11/2025 6:53 AM CDT [facility] Monocytes 0.50 0.26 - 0.81 x10(9)/L 02/11/2025 6:53 AM CDT [facility] Eosinophils 0.37 0.03 - 0.48 x10(9)/L 02/11/2025 6:53 AM CDT [facility] Basophils 0.03 0.01 - 0.08 x10(9)/L 02/11/2025 6:53 AM CDT [facility] Blood (Blood, Venous) 02/11/2025 6:37 AM CDT 02/11/2025 6:39 AM CDT us Randall Vargas M.D. LAB BLOOD ADD-ON Final Resul t [facility] [address] [facility] [place] [address], [facility] [place] [address] [place] [address] * (ABNORMAL) Comprehensive Metabolic Panel (02/11/2025 6:37 AM CDT) Potassium, P 4.5 3.6 - 5.2 mmol/L 02/11/2025 7:02 AM CDT [facility] Sodium, P 140 135 - 145 mmol/L 02/11/2025 7:02 AM CDT [facility] Chloride, P 107 98 - 107 mmol/L 02/11/2025 7:02 AM CDT [facility] Bicarbonate, P 25 22 - 29 mmol/L 02/11/2025 7:02 AM CDT [facility] Anion Gap, P 8 7 - 15 02/11/2025 7:02 AM CDT [facility] BUN (Blood Urea Nitrogen), P 25(H) 8 - 24 mg/dL 02/11/2025 7:02 AM CDT [facility] Creatinine 0.98 0.74 - 1.35 mg/dL 02/11/2025 7:02 AM CDT [facility] Estimated GFR (eGFR) 82 >=60 mL/min/BS A 02/11/2025 7:02 AM CDT [facility] Comment: Estimated GFR calculated using the 2020 CKD_EPI creatinine equation. Calcium, Total, P 9.0 8.8 - 10.2 mg/dL 02/11/2025 7:02 AM CDT [facility] Glucose, P 102 70 - 140 mg/dL 02/11/2025 7:02 AM CDT [facility] Protein, Total, P 7.5 6.3 - 7.9 g/dL 02/11/2025 7:02 AM CDT [facility] Albumin, P 4.0 3.5 - 5.0 g/dL 02/11/2025 7:02 AM CDT [facility] Aspartate Aminotransferase (AST), P 26 8 - 48 U/L 02/11/2025 7:02 AM CDT [facility] Alkaline Phosphatase, P 139(H) 40 - 129 U/L 02/11/2025 7:02 AM CDT [facility] Alanine Aminotransferase (ALT), P 21 7 - 55 U/L 02/11/2025 7:02 AM CDT [facility] Bilirubin, Total, P 1.2 0.0 - 1.2 mg/dL 02/11/2025 8:18 AM CDT [facility] Blood (Blood, Venous) 02/11/2025 6:37 AM CDT 02/11/2025 6:39 AM CDT us Randall Vargas M.D. LAB BLOOD ADD-ON Final Resul t [facility] [address] [place] [address], [place] [facility] [place] [address] [place] [address] * CT Chest without IV Contrast (02/11/2025 6:33 AM CDT) Anatomical Region Laterality Modality Chest, Thoracic RST LOS, Tho racic ARZ LOS, Thoracic FLA LOS N/A Computed Tomography Impressions 02/11/2025 7:19 AM CDT No acute traumatic thoracic abnormality. Narrative 02/11/2025 7:19 AM CDT EXAM: CT CHEST WITHOUT IV CONTRAST COMPARISON: None FINDINGS: Image quality mildly degraded by motion artifact. Lungs/Airways/Pleura: Patent tracheobronchial tree with minimal upper airway secretions. Basilar atelectasis/scarring. No pleural effusion or pneumothorax. Multiple subcentimeter solid nodules, including 6 mm left upper lobe nodule (4/200), 4 mm right middle lobe subpleural nodule (4/363), and 3 mm left lower lobe juxtapleural nodule along the fissure (4/284). Mediastinum: Left chest wall pacemaker with leads terminating in the right atrium and right ventricle. Median sternotomy. Cardiomegaly. Left atrial appendage closure device. No pericardial effusion. Aortic dissection repair. Tortuous aorta with aortic arch measuring 5.0 cm. Multiple subcentimeter mediastinal nodes. Unremarkable esophagus. Upper Abdomen: Subcentimeter hepatic hypodensities. Cholelithiasis. Right adrenal calcification. Left adrenal thickening. Renal cysts. Musculoskeletal: No acute or aggressive osseous lesion. Spondylosis. Glenohumeral degeneration. Grossly unremarkable soft tissues. Procedure Note Levi Craft M.D. - 02/11/2025 EXAM: CT CHEST WITHOUT IV CONTRAST COMPARISON: None FINDINGS: Image quality mildly degraded by motion artifact. Lungs/Airways/Pleura: Patent tracheobronchial tree with minimal upperairway secretions. Basilar atelectasis/scarring. No pleural effusion orpneumothorax. Multiple subcentimeter solid nodules, including 6 mm leftupper lobe nodule (4/200), 4 mm right middle lobe subpleural nodule (4/363), and 3 mm left lower lobejuxtapleural nodule along the fissure (4/284). Mediastinum: Left chest wall pacemaker with leads terminating in the rightatrium and right ventricle. Median sternotomy. Cardiomegaly. Left atrialappendage closure device. No pericardial effusion. Aortic dissectionrepair. Tortuous aorta with aortic arch measuring 5.0 cm. Multiple subcentimeter mediastinal nodes.Unremarkable esophagus. Upper Abdomen: Subcentimeter hepatic hypodensities. Cholelithiasis. Rightadrenal calcification. Left adrenal thickening. Renal cysts. Musculoskeletal: No acute or aggressive osseous lesion. Spondylosis.Glenohumeral degeneration. Grossly unremarkable soft tissues. IMPRESSION: No acute traumatic thoracic abnormality. Randall Vargas M.D. IMAntonino CT PROCEDURES Final Resu lt * CT Cervical Spine without IV Contrast (02/11/2025 6:33 AM CDT) Anatomical Region Laterality Modality Cervical Spine, Neuroradiolo gy RST LOS, Neuroradiology ARZ LOS, Neuroradiology FLA LOS N/A Computed Tomography 02/11/2025 6:22 AM CDT Impressions 02/11/2025 7:08 AM CDT 1. Right auricular laceration and hematoma without underlying calvarial fracture. No acute intracranial abnormality. 2. No acute fracture or traumatic subluxation in the cervical spine. Narrative 02/11/2025 7:08 AM CDT EXAM: CT HEAD WITHOUT IV CONTRAST, CT CERVICAL SPINE WITHOUT IV CONTRAST COMPARISON: None FINDINGS: CT Head: No acute intracranial hemorrhage, mass effect, or midline shift. No acute mcnamara- white matter differentiation loss. Multifocal encephalomalacia involving right frontal, parietooccipital, and bilateral cerebellar hemispheres. Generalized parenchymal volume loss and leukoaraiosis, likely sequela of chronic microvascular ischemia and/or gliosis related to prior insults. No hydrocephalus. Right auricular laceration and hematoma. Prior right frontal joaquim hole. Minimal scattered mucosal thickening in the paranasal sinuses. Tiny mucous retention cyst in the right sphenoid locule. Relatively clear mastoid air cells. Bilateral pseudophakia. CT Cervical Spine: No acute fracture. No traumatic subluxation. Grade 1 anterolisthesis of C4 on C5. Trace retrolisthesis of C5 on C6 and C6 on C7. Multilevel spondylosis with disc space narrowing, osteophytic spurring, uncovertebral facet arthropathy most pronounced at C5-6 and C6-7 with moderate neuroforaminal narrowing. No high-grade spinal canal stenosis. Atlantoaxial degeneration. Nonspecific lucent foci throughout the cervical vertebrae. No prevertebral soft tissue abnormality. Clear visualized lung apices. Procedure Note Levi Craft M.D. - 02/11/2025 EXAM: CT HEAD WITHOUT IV CONTRAST, CT CERVICAL SPINE WITHOUT IV CONTRAST COMPARISON: None FINDINGS: CT Head: No acute intracranial hemorrhage, mass effect, or midline shift. No acutegrey- white matter differentiation loss. Multifocal encephalomalaciainvolving right frontal, parietooccipital, and bilateral cerebellarhemispheres. Generalized parenchymal volume loss and leukoaraiosis, likely sequela of chronic microvascular ischemiaand/or gliosis related to prior insults. No hydrocephalus. Right auricular laceration and hematoma. Prior right frontal joaquim hole.Minimal scattered mucosal thickening in the paranasal sinuses. Tiny mucousretention cyst in the right sphenoid locule. Relatively clear mastoid aircells. Bilateral pseudophakia. CT Cervical Spine: No acute fracture. No traumatic subluxation. Grade 1 anterolisthesis of C4on C5. Trace retrolisthesis of C5 on C6 and C6 on C7. Multilevelspondylosis with disc space narrowing, osteophytic spurring, uncovertebralfacet arthropathy most pronounced at C5-6 and C6-7 with moderate neuroforaminal narrowing. No high-grade spinalcanal stenosis. Atlantoaxial degeneration. Nonspecific lucent focithroughout the cervical vertebrae. No prevertebral soft tissueabnormality. Clear visualized lung apices. IMPRESSION: 1. Right auricular laceration and hematoma without underlying calvarialfracture. No acute intracranial abnormality. 2. No acute fracture or traumatic subluxation in the cervical spine. Randall Vargas M.D. IM CT PROCEDURES Final Resu lt * CT Head without IV Contrast (02/11/2025 6:30 AM CDT) Anatomical Region Laterality Modality Head, Neuroradiology RST LOS , Neuroradiology ARZ LOS, Neuroradiology FLA LOS N/A Computed Tomography 02/11/2025 6:22 AM CDT Impressions 02/11/2025 7:08 AM CDT 1. Right auricular laceration and hematoma without underlying calvarial fracture. No acute intracranial abnormality. 2. No acute fracture or traumatic subluxation in the cervical spine. Narrative 02/11/2025 7:08 AM CDT EXAM: CT HEAD WITHOUT IV CONTRAST, CT CERVICAL SPINE WITHOUT IV CONTRAST COMPARISON: None FINDINGS: CT Head: No acute intracranial hemorrhage, mass effect, or midline shift. No acute mcnamara- white matter differentiation loss. Multifocal encephalomalacia involving right frontal, parietooccipital, and bilateral cerebellar hemispheres. Generalized parenchymal volume loss and leukoaraiosis, likely sequela of chronic microvascular ischemia and/or gliosis related to prior insults. No hydrocephalus. Right auricular laceration and hematoma. Prior right frontal joaquim hole. Minimal scattered mucosal thickening in the paranasal sinuses. Tiny mucous retention cyst in the right sphenoid locule. Relatively clear mastoid air cells. Bilateral pseudophakia. CT Cervical Spine: No acute fracture. No traumatic subluxation. Grade 1 anterolisthesis of C4 on C5. Trace retrolisthesis of C5 on C6 and C6 on C7. Multilevel spondylosis with disc space narrowing, osteophytic spurring, uncovertebral facet arthropathy most pronounced at C5-6 and C6-7 with moderate neuroforaminal narrowing. No high-grade spinal canal stenosis. Atlantoaxial degeneration. Nonspecific lucent foci throughout the cervical vertebrae. No prevertebral soft tissue abnormality. Clear visualized lung apices. Procedure Note Levi Craft M.D. - 02/11/2025 EXAM: CT HEAD WITHOUT IV CONTRAST, CT CERVICAL SPINE WITHOUT IV CONTRAST COMPARISON: None FINDINGS: CT Head: No acute intracranial hemorrhage, mass effect, or midline shift. No acutegrey- white matter differentiation loss. Multifocal encephalomalaciainvolving right frontal, parietooccipital, and bilateral cerebellarhemispheres. Generalized parenchymal volume loss and leukoaraiosis, likely sequela of chronic microvascular ischemiaand/or gliosis related to prior insults. No hydrocephalus. Right auricular laceration and hematoma. Prior right frontal joaquim hole.Minimal scattered mucosal thickening in the paranasal sinuses. Tiny mucousretention cyst in the right sphenoid locule. Relatively clear mastoid aircells. Bilateral pseudophakia. CT Cervical Spine: No acute fracture. No traumatic subluxation. Grade 1 anterolisthesis of C4on C5. Trace retrolisthesis of C5 on C6 and C6 on C7. Multilevelspondylosis with disc space narrowing, osteophytic spurring, uncovertebralfacet arthropathy most pronounced at C5-6 and C6-7 with moderate neuroforaminal narrowing. No high-grade spinalcanal stenosis. Atlantoaxial degeneration. Nonspecific lucent focithroughout the cervical vertebrae. No prevertebral soft tissueabnormality. Clear visualized lung apices. IMPRESSION: 1. Right auricular laceration and hematoma without underlying calvarialfracture. No acute intracranial abnormality. 2. No acute fracture or traumatic subluxation in the cervical spine. us Randall Vargas M.D. IMG CT PROCEDURES Final Resu lt * Ear Right-Nursing Image Exam (02/11/2025 6:04 AM CDT) 02/11/2025 6:02 AM CDT Narrative [facility] - 02/11/2025 6:04 AM CDT This order has been created and auto-finalized to support the import of images acquired without order. The clinical documentation to support these images can be found on the encounter that produced images. us Provider Not In System IMG NON RAD IMAGING PROCE DURES Final Result [facility] NA from Last 3 Months Insurance MEDICARE [facility] Advance Directives For more information, please contact: [phone] * Full Code (Latest Code Status on File) Date Activated Date Inactivated Comments 02/11/2025 7:01 PM 02/12/2025 4:55 PM Question Answer Comments Full Code: Not Discussed Due to: Patient not available * Full Code Date Activated Date Inactivated Comments 02/11/2025 6:56 PM 02/11/2025 7:01 PM Question Answer Comments Full Code: Not Discussed Due to: Patient not available Care Teams Application Chemist Relationship Specialty Start Date End Date Elsewhere, Pcp PCP - General Internal Medicine 02/11/25
--- OUTSIDE RECORDS SUMMARY | 2025-05-14 12:14 | XMS_ITS | Patient Health Record ---
Author Organization [facility] Address [address] [place] [address] Care Team Providers Care Bobj Developer Name Role Phone Migration, Provider Unavailable Unavailable Reason For Referral No Information Encounters Encounter Location Date Provider Diagnosis Migrated_Facility 0 0 01/03/2025 Provider Migration Migrated_Facility 0 0 01/04/2025 Provider Migration Plan Of Treatment No Information Insurance Providers Payer Name Payer Address Payer Phone Subscriber Number Group Number Insured Name Patient Relationship to Insured Coverage Start Date Coverage End Date [employer] [address] [place] [id number] Masood May Self - patient is the insured
== END 2025-05-14 12:27 | disposition left against medical advice (07) ==
PROVIDERS: Emergency Provider Emergency Medicine; PCP Family Medicine
DX: Z53.21 Procedure and treatment not carried out due to patient leaving prior to being seen by health care provider (principal)